=== PATIENT | male | born 1945 | race Caucasian/White ===

== ENCOUNTER 2024-11-05 14:23 | Observation (INO) | payer MEDICARE, SELFPAY ==
[2024-11-05 14:12] VITALS: BMI 28.6
[2024-11-05 14:14] VITALS: BP 180/133; PULSE 73; RESP 18; TEMP 36.4; O2SAT 99
--- NOTE | 2024-11-05 14:15 | NURSING ---
While completing my routine admission questions, pt does admit to having occassional thoughts of harming himself. Has admitted so to his as well, who is at bedside. States that he would use a gun and made a motion toward his head with his hand. He does not feel like he wants to live when his health is so poor. He is not currently having any self harm thoughts, and denies any attempts in the past. Social Work notified and suicide precautions in place.
--- NOTE | 2024-11-05 14:28 | PCM.HP.STD ---
HPI - General General Date of Admission: 11/05/24 Date of Service: 11/05/24 Chief Complaint: Chest pain HPI Narrative JUAN LIEBERMAN, is a 79 M who presents with chest pain. This is a 71-year-old male who presents with chest pain. Symptoms began this morning. It was a left-sided and radiated to and he did have chest x-ray is normal and a CTA of his chest that was also negative. His back. Associated with diaphoresis. Was concerning enough that patient was brought to an outside hospital with Yazmin Novak while he was there, he underwent a workup that noted that his sodium was low for evaluation. CTA of the chest was negative the contacted [facility] for evaluation.. PFSH Home Medications ?Medication ?Instructions ?Recorded ?Last Taken ?Type albuterol sulfate 90 mcg/actuation 2 puff inhalation Q4H PRN PRN 11/05/24 11/04/24 History aerosol inhaler wheezing doxazosin 4 mg tablet 4 mg PO DAILY 11/05/24 11/04/24 History dupilumab 300 mg/2 mL subcutaneous 300 mg subcut .Q2Week Skin 11/05/24 Unknown History pen injector (Dupixent) dutasteride 0.5 mg capsule 0.5 mg PO DAILY 11/05/24 11/04/24 History furosemide 20 mg tablet 20 mg PO DAILY 11/05/24 10/29/24 History levothyroxine 100 mcg capsule 100 mcg PO DAILY 11/05/24 Unknown History omeprazole 40 mg capsule,delayed 40 mg PO DAILY 11/05/24 11/04/24 History release Allergy/AdvReac Type Severity Reaction Status Date / Time prednisone AdvReac PT UNSURE Verified 11/05/24 14:12 OF REACTION Family History (Updated 11/05/24 @ 14:[address] Christopher Xie DO) Mother Cancer Other Heart disease Social History (Updated 11/05/24 @ 14:[address] Christopher Xie DO) Smoking Status: Never smoker alcohol intake: current details: Drinks 4 drinks a day most days. ROS ROS Narrative reports that the patient has been forgetful. Did have some bruising on his chest from the lead removal nonbillable rounding as patient was admitted after midnight. The EKG outside hospital some lower extremity edema. Appetite has been fair but that is chronic. Eats only breakfast usually but occasionally something at night if this is something that his makes that he likes. No weight change. All review of systems were negative except as mentioned above in the history of present illness and the other review of systems. Vital Signs Vital Signs Vital Signs: 11/05/24 14:14 Temperature 36.4 C L Temperature Source Oral Pulse Rate 73 Respiratory Rate 18 Blood Pressure 180/133 H Blood Pressure Mean 148 Blood Pressure Source Monitor Blood Pressure Position Sitting Blood Pressure Location Left Arm Pulse Ox 99 Oxygen Delivery Method Room Air Physical Exam Const alert and no apparent distress Constitutional Narrative: Hard of hearing HEENT normocephalic and head/scalp atraumatic Resp normal respiratory effort, no retractions, no use of accessory muscles and clear to auscultation bilaterally Cardio regular rate, regular rhythm, S1 normal heart sound and S2 normal heart sound GI normal to inspection, nondistended, normoactive bowel sounds, soft to palpation and non-tender Extremity normal to inspection and no clubbing, cyanosis or edema Skin Skin Narrative: Ecchymosis on his chest. Results EKG Initial EKG: Attestation: I personally reviewed and interpreted this EKG as follows: Prior EKG tracings: available for review EKG Rhythm Intrepretation: Sinus Rhythm Assessment & Plan Assessment/Plan (1) Chest pain: PLAN: Atypical. Reproducible. Suspect costochondritis with patient does have risk factors bigger with his family history for coronary artery disease. Will cycle troponins which I was told at the outside hospital were negative. As well as get a stress test. Patient did receive aspirin at the outside hospital and will continue. PLAN: Plan Forgetfulness: Per his . Would be concerned about patient having mild cognitive impairment versus dementia. Recommend geriatric evaluation as outpatient. VTE prophylaxis: Low risk. Not indicated at this time. Charges/Coding Visit Charges Inpatient E&M: 29405 Init Hosp L2
[2024-11-05 15:12] LABS: Hematocrit 34.7 % (40-54); Hemoglobin 11.8 g/dL (13.0-16.5); Mean Corpuscular Hgb 31.8 pg (27.0-32.0); Mean Corpuscular Volume 93.5 fL (80-94); Mean Platelet Vol. 9.3 fl (6.2-12.0); Platelet Count 224 K/mm3 (150-450); RBC Distribution Width CV 13.3 % (11.6-14.6); RBC Distribution Width SD 45.3 fl (35.1-43.9); Red Blood Count 3.71 M/mm3 (4.6-6.2); White Blood Count 7.3 K/mm3 (4.4-11.0)
[2024-11-05 15:47] LABS: Anion Gap 12 (5-15); BUN 18 mg/dL (4-19); BUN/Creat Ratio 8.1 RATIO (10-20); Calcium,Total 8.9 mg/dL (7.6-11.0); Carbon Dioxide 19.9 mmol/L (21.0-32.0); Chloride 93 mmol/L (98-108); Creatinine, Serum 2.16 mg/dL (0.70-1.20); EST Glomerular Filtration Rate 31 (>60); Estimated Creatinine Clearance 31.91 ml/min (50-250); Glucose 108 mg/dL (70-99); Potassium 4.2 mmol/L (3.3-5.1); Sodium Level 124 mmol/L (133-145)
[2024-11-05 16:46] LABS: Troponin T High Sensitivity 95 ng/L (<=22)
--- NOTE | 2024-11-05 17:23 | EKG12_ITS ---
Test Reason : pre CI Blood Pressure : */* mmHG Vent. Rate : 87 BPM Atrial Rate : 87 BPM P-R Int : 196 ms QRS Dur : 96 ms QT Int : 370 ms P-R-T Axes : 49 8 -8 degrees QTcB Int : 445 ms Normal sinus rhythm Possible Inferior infarct , age undetermined ST & T wave abnormality, consider anterolateral ischemia Abnormal ECG When compared with ECG of 05-Nov-2024 15:28, MANUAL COMPARISON REQUIRED DATA IS UNCONFIRMED Confirmed by SHIRA CATHERINE, BENJAMIN ([id number]), script editor STEFANY DOAN ([id number]) on 11/06/2024 10:56:08 AM Referred By: Christopher Xie Confirmed By: BENJAMIN SILVA MD
[2024-11-05 17:27] LABS: Osmolality, Serum 274 mOsm/KG (280-301)
[2024-11-05 18:38] LABS: Troponin T High Sens 2 HR 97 ng/L (<=22)
[2024-11-05] MEDS: 0.9% Normal Saline (1000mL) 1,000 ML 150 ML IV (18:38)
--- NOTE | 2024-11-05 18:41 | CASEMGMT ---
Social Work SW was consulted to assess patient for suicide risk due to comments made to nurse. Patient made comments to nurse that he did have occasional thoughts of harming self and that he did not want to live with his health being poor. Patient then made a motion with his hand of shooting self in head. SW entered room and introduced self to patient and explained reason for visit. Patient rolled his eyes and stated he did not want to hurt himself, that he sometimes just said things when he was upset. Patient stated that he is frustrated with his current health, that he is upset that he is not able to do the things he used to be able to do, and wants to be able to leave his house more. Patient was future focused, stating that he planned to improve his health so he and his can start going out to eat and visiting friends. Patient denies suicidal intent or plan, denies any past suicide attempts or any attempts at self harm. Patient did state that his mother committed suicide many years ago but that is did not affect him as they were not close. Patient was offered counseling services that he declined, stating Im not going to go to a counselor, I wouldn't be talking to you if I didn't have to Patients was contacted who stated she believed patient was just upset, that he will say things when he is in a bad mood and not mean them. also confirmed that they did not own any firearms. Physician was notified of assessment outcome. Charge nurse notified of assessment outcome and discussion with physician. [facility] SUICIDAL IDEATION Ask questions 1 and 2. If both are negative, proceed to ?Suicidal Behavior? section. If the answer question 2 is yes, ask questions 3, 4, 5.? If the answer to question 1 and/or 2 is ?yes?, complete ?Intensity of Ideation? section below. 1. Wish to be ? Subject endorses thoughts about a wish to be or not alive anymore or wish to fall asleep and not wake up. Have you wished you were or wished you could go to sleep and not wake up? Lifetime: Time He/She [place] Most Suicidal: ?Yes Past 1 month:No Please Describe if yes: ? Patient states he has had thoughts that he would be better off than with major health issues. 2. Non-Specific Active Suicidal Thoughts General, non-specific thoughts of wanting to end one?s life/commit suicide (e.g., ?I?ve thought about killing myself?) without thoughts of ways to kills oneself/associated methods, intent, or plan during the assessment period.? Have you actually had any thoughts of killing yourself? Lifetime: Time He/She [place] Most Suicidal: ?No Past 1 month: No Please Describe if yes: 3. Active Suicidal Ideation with Any Methods (Not Plan) without Intent to Act Subject endorses thoughts of suicide and has thought of at least one method during the assessment period.? This is different than a specific plan with time, place, or method details worked out (e.g., thought of method to kills self but not a specific plan).? Includes person who would say ?I thought about thanking an overdose, but I never made a specific plan as to when, where or how. I would actually do it, and I would never go through with it.? Have you been thinking about how you might do this? Lifetime: Time He/She [place] Most Suicidal: ?No Past 1 month:? No Please Describe if yes: 4. Active Suicidal Ideation with Some Intent to Act, without Specific Plan Active suicidal thoughts of kills oneself fand subject reports having some intent to act on such thoughts, as opposed to ?I have the thoughts but I definitely will not do anything about them.? Have you had these thoughts and had some intention of acting on them? Lifetime: Time He/She [place] Most Suicidal: No Past 1 month: No Please Describe if yes: 5. Active Suicidal Ideation with Specific Plan and Intent Thoughts of kills oneself with details of plan fully or partially worked out and subject has some intent to care it out. Have you started to work out or worked out the details of how to kill yourself? Do you intend to carry out this plan? Lifetime: Time He/She [place] Most Suicidal: No Past 1 month: ???No Please Describe if yes: INTENSITY OF IDEATION The following feature should be rated with respect to the most sever type of ideation (i.e., 1-5 from above, with 1 being the least severe and 5 being the most severe). Ask about time he/she/they were feeling the most suicidal.? Lifetime - Most Severe Ideation: Type # (1-5): 0 Description: Recent - Most Severe Ideation: Type # (1-5): 0 Description: Frequency How many times have you had these thoughts? Lifetime: (1) Less than once a week??? (2) Once a week?? (3)? 2-5 times in week??? (4) Daily or almost daily??? (5) Many times each day Recent, Past 1 month:? (1) Less than once a week??? (2) Once a week?? (3)? 2-5 times in week??? (4) Daily or almost daily??? (5) Many times each day Duration When you have the thoughts, how long do they last? Lifetime: (1) Fleeting - few seconds or minutes? (2) Less than 1 hour/some of the time? (3) 1-4 hours/a lot of time? 4) 4-8 hours/most of day? (5) More than 8 hours/persistent or continuous Recent, Past 1 month:? (1) Fleeting - few seconds or minutes? (2) Less than 1 hour/some of the time? (3) 1-4 hours/a lot of time? 4) 4-8 hours/most of day? (5) More than 8 hours/persistent or continuous Controllability Could/can you stop thinking about killing yourself or wanting to if you want to? Lifetime:? (1) Easily able to control thoughts?? (2) Can control thoughts with little difficulty??? (3) Can control thoughts with some difficulty??? 4) Can control thoughts with a lot of difficulty? (5) Unable to control thoughts?? (0) Does not attempt to control thoughts Recent, Past 1 month: (1) Easily able to control thoughts?? (2) Can control thoughts with little difficulty??? (3) Can control thoughts with some difficulty??? 4) Can control thoughts with a lot of difficulty? (5) Unable to control thoughts?? (0) Does not attempt to control thoughts Deterrents Are there things - anyone or anything (e.g., family, yazdanism, pain of ) - that stopped you from wanting to or acting on thoughts of committing suicide? Lifetime:? (1) Deterrents definitely stopped you from attempting suicide? (2) Deterrents probably stopped you?? (3) Uncertain that deterrents stopped you? (4) Deterrents most likely did not stop you? (5) Deterrents definitely did not stop you?? 0) Does not apply??? Recent:??? (1) Deterrents definitely stopped you from attempting suicide? (2) Deterrents probably stopped you?? (3) Uncertain that deterrents stopped you? (4) Deterrents most likely did not stop you? (5) Deterrents definitely did not stop you?? 0) Does not apply??? Reasons for Ideation What sort of reasons did you have for thinking about wanting to or killing yourself? Was it to end the pain or stop the way you were feeling (in other words you couldn?t go on living with this pain or how you were feeling) or was it to get attention, revenge or a reaction from others? Or both? Lifetime: (1) Completely to get attention, revenge or a reaction from?? (2) Mostly to get attention, revenge or a reaction from others? (3) Equally to get attention, revenge or a reaction from others? and to end/stop the pain?? ( 4) Mostly to end or stop the pain (you couldn?t go on living with the pain or how you were feeling)??? (5) Completely to end or stop the pain (you couldn?t go on living with the pain or? how you were feeling)??? (0)? Does not apply? Recent: (1) Completely to get attention, revenge or a reaction from?? (2) Mostly to get attention, revenge or a reaction from others? (3) Equally to get attention, revenge or a reaction from others? and to end/stop the pain??? (4) Mostly to end or stop the pain (you couldn?t go on living with the pain or how you were feeling)?? (5) Completely to end or stop the pain (you couldn?t go on living with the pain or? how you were feeling)?? (0)? Does not apply? SUICIDAL BEHAVIOR Actual Attempt: A potentially self-injurious act committed with at least some wish to , as a result of act.? Behavior was in part thought of as method to kill oneself.? Intent does not have to be 100%.? If there is any intent/desire to associated with the act, then it can be considered an actual suicide attempt.? There does not have to be any injury of harm, just the potential for injury or harm.? If person pulls trigger while gun is in mouth, but gun is broken so no injury results, this is considered an attempt.? Inferring intent:? Even if an individual denies intent/wish to , it may be inferred clinically from the behavior or circumstances.? For example, a highly lethal act that is clearly not an accident so no other intent but suicide can be inferred (e.g. gunshot to head, jumping from window of a high floor/story).? Also, if someone denies intent to , but they thought that what they did could be lethal, intent may be inferred.? Have you made a suicide attempt? Have you done anything to harm yourself? Have you done anything dangerous where you could have ? What did you do? Did you as a way to end your life? Did you want to (even a little) when you ? Were you trying to end your life when you ? Or did you think it was possible you could have from ? Or did you do it purely for other reasons/without ANY intention of killing yourself like to relieve stress, feel better, get sympathy, or get something else to happen)? (Self -Injurious Behavior without suicidal intent) Lifetime: No Past 3 months: No If yes, describe: Total # of Attempts in His/Her Lifetime: Total # of attempts in Past 3 months: Has person engaged in Non-Suicidal Self-Injurious Behavior? Lifetime: no Past 3 months: no Interrupted Attempt: When the person is interrupted (by an outside circumstance) from starting the potentially self-injurious act (if not for that, actual attempt would have occurred).? Overdose: Person has pills in hand but is stopped from ingesting. Once they ingest any pills, this becomes an attempt rather than an interrupted attempt. Shooting: Person has gun pointed toward self, gun is taken away by someone else, or is somehow prevented from pulling trigger. Once they pull the trigger, even if the gun fails to fire, it is an attempt. Jumping: Person is poised to jump, is grabbed and taken down from ledge.? Hanging: Person has noose around neck but has not yet started to hang self -is stopped from doing so.? Has there been a time when you started to do something to end your life but someone or something stopped you before you did anything? Lifetime: No Past 3 months: No If yes, describe: ? Total # of interrupted attempts in His/Her Lifetime: Total # of interrupted attempts in Past 3 months: Aborted or Self-Interrupted Attempt:? When person begins to take steps toward making a suicide attempt, but stops themselves before they have actually engaged in any self-destructive behavior. Examples are like interrupted attempts, except that the individual stops him/herself, instead of being stopped by something else. Has there been a time when you started to do something to try to end your life, but you stopped yourself before you did anything? Lifetime: No Past 3 months: No If yes, describe: Total # of aborted or self-interrupted attempts in His/Her Lifetime: Total # of aborted or self-interrupted attempts in Past 3 months: Preparatory Acts or Behavior:? Acts or preparation towards imminently making a suicide attempt. This can include anything beyond a verbalization or thought, such as assembling a specific method (e.g., buying pills, purchasing a gun) or preparing for one?s by suicide (e.g., giving things away, writing a suicide note). Have you taken any steps towards making a suicide attempt or preparing to kill yourself (such as collecting pills, getting a gun, giving valuables away or writing a suicide note)? Lifetime: No Past 3 months: No If yes, describe: ? Total # of preparatory acts in His/Her Lifetime: Total # of preparatory acts in Past 3 months: Lethality/Medical Damage:??? 0. No physical damage or very minor physical damage (e.g., surface scratches). 1. Minor physical damage (e.g., lethargic speech; first-degree kauffman; mild bleeding; sprains). 2. Moderate physical damage; medical attention needed (e.g., conscious but sleepy, somewhat responsive; second-degree kauffman; bleeding of major vessel). 3. Moderately severe physical damage; medical hospitalization and likely intensive care required (e.g., comatose with reflexes intact; third-degree kauffman less than 20% of body; extensive blood loss but can recover; major fractures). 4. Severe physical damage; medical hospitalization with intensive care required (e.g., comatose without reflexes; third-degree kauffman over 20% of body; extensive blood loss with unstable vital signs; major damage to a vital area). 5. Most Recent attempt Date: Code: Most Lethal Attempt Date: Code: Initial/First Attempt Date: Code: Potential Lethality: Only Answer if Actual Lethality=0 Likely lethality of actual attempt if no medical damage (the following examples, while having no actual medical damage, had potential for very serious lethality: put gun in mouth and pulled the trigger but gun fails to fire so no medical damage; laying on train tracks with oncoming train but pulled away before run over). 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
--- NOTE | 2024-11-05 18:52 | NURSING ---
Suicide sitter removed per Dr. Xie orders.
[2024-11-05 21:15] LABS: Troponin T High Sens 4 HR 92 ng/L (<=22)
[2024-11-05 21:50] VITALS: BP 191/119; PULSE 84; RESP 17; TEMP 36.7; O2SAT 99
[2024-11-05 22:07] LABS: Bacteria 0 SEEN /hpf (None Seen); Mucous, Urine 0 SEEN /hpf (<or=2+); Red Blood Cells-Urine 0 SEEN /hpf (0-5)
[2024-11-05 22:20] LABS: Color, Urine Straw (Yellow); Glucose, Dipstick Normal (Normal); Ketone-Dipstick Negative (Negative); Leukocyte Esterase-Dipstick Negative /ul (Negative); Nitrite-Dipstick Negative (Negative); Occult Blood-Urine Negative /ul (Negative); Protein-Dipstick 100 mg/dl (Negative); Urine Bilirubin Dipstick Negative (Negative); Urine Clarity Clear (Clear); Urine Urobilinogen Normal (Normal)
[2024-11-05 22:26] VITALS: BP 191/119; PULSE 84
[2024-11-05] MEDS: hydrALAZINE 20 MG/ML Vial 10 MG IV (22:26)
[2024-11-05] MEDS: 0.9% Saline Lock 10 ML Syringe IV (22:26)
[2024-11-05 22:30] LABS: Squamous Epithelial Cells - UA 0-5 SEEN /hpf (0-5); White Blood Cells 0-5 SEEN /hpf (0-5)
[2024-11-05 22:44] LABS: Urine Sodium 32 mmol/L (Not Establ.)
--- OUTSIDE RECORDS SUMMARY | 2024-11-05 22:50 | XMS RPT_ITS | CCD ---
Author Organization [facility] Care Team Providers Care Rustic Fence Builder Name Role Phone Jrared Kim Unavailable JIM Banks Unavailable Unavailable JIM MICHELE MD Primary Care Physician JIM MICHELE MD Primary Care Unavailable JIM MICHELE MD Attending Unavailable JIM MICHELE MD Attending Unavailable JIM MICHELE MD Primary Care Unavailable JIM MICHELE MD Primary Care Unavailable JIM MICHELE MD Attending Unavailable JIM MICHELE MD Primary Care Unavailable CARINE FIERRO DO Attending Unavailable JIM MICHELE MD Primary Care Unavailable JIM MICHELE MD Attending Unavailable JIM MICHELE MD Primary Care Unavailable JIM MICHELE MD Attending Unavailable JIM MICHELE MD Primary Care Unavailable JIM MICHELE MD Attending Unavailable JIM MICHELE MD Attending Unavailable JIM MICHELE MD Primary Care Unavailable JIM MICHELE MD Attending Unavailable JIM MICHELE MD Primary Care Unavailable Allergies Allergy Classification Reported Allergen(s) Allergy Type Date of Onset Reaction(s) Facility (20 sources) benazepril; Translations: [benazepril] Drug Allergy Cough [facility] (20 sources) predniSONE; Translations: [prednisone] Drug Allergy Unknown [facility] Medications Current Medications Medication Drug Class(es) Dates Sig (Normalized) Sig (Original) acetaminophen 325 mg / oxyCODONE hydrochloride 5 mg oral tablet (1 source) Opioid Agonist Start: 02-03-2023 End: 02-06-2023 take 1 tablet by mouth every six hours as needed for pain Percocet 5 mg-325 mg oral tablet Dose = 1 tab(s), Oral, q6h, PRN for pain, X 3 day(s), # 8 tab(s), 0 Refill(s), Cellulitis, 91 Start Date: 02/03/23 Stop Date: 02/06/23 Status: Ordered [id number] 200 actuat albuterol 0.09 mg/actuat metered dose inhaler (6 sources) beta2-Adrenergic Agonist Start: 02-08-2024 take 2 puff(s) by inhalation every four hours as needed for wheezing ProAir HFA MDI (90 mcg/inh) inhalation aerosol 2 puff(s), Inhalation, q4h, PRN as needed for wheezing, # 8.5 gram(s), 4 Refill(s), Pharmacy: [facility]/pharmacy #[id number], Benign essential hypertension Diabetes mellitus, 176.5, cm, 12/07/23 13:54:00 EDT, Height, kg, 12/07/23 13:54:00 EDT, Dosing Weight Start Date: 02/08/24 Status: Ordered Quantity: 8.5 Unit: g Repeat number: 5 Indications: Type 2 diabetes mellitus without complications; Essential (primary) hypertension; Start: 03-31-2023 take 2 puff(s) by in halation every four hours as needed for wheezing ProAir HFA MDI (90 mcg/inh) inhalation aerosol 2 puff(s), Inhalation, q4h, PRN as needed for wheezing, # 8.5 gram(s), 4 Refill(s), Pharmacy: [facility] #[id number], Benign essential hypertension Diabetes mellitus, 176.5, cm, 03/31/23 8:33:00 EST, Height, kg, 03/31/23 8:21:00 EST, Dosing Weight Start Date: 03/31/23 Status: Ordered albuterol MDI (90 mcg/inh) CFC free inhalation aerosol (19 sources) Start: 01-25-2023 take 2 puff(s) by inhalation every four hours as needed for wheezing albuterol MDI (90 mcg/inh) CFC free inhalation aerosol 2 puff(s), Inhalation, q4h, PRN as needed for wheezing, # 18 gram(s), 0 Refill(s), Pharmacy: [facility] #[id number], Low back pain, 176.5, cm, 01/25/23 10:06:00 EDT, Height, kg, 01/25/23 10:06:00 EDT, Dosing Weight Start Date: 01/25/23 Status: Ordered Quantity: 18.0 Unit: g Repeat number: 1 Indications: Low back pain, unspecified; Start: 01-25-2023 take 2 puff(s) by in halation every four hours as needed for wheezing albuterol MDI (90 mcg/inh) CFC free inhalation aerosol 2 puff(s), Inhalation, q4h, PRN as needed for wheezing, # 18 gram(s), 0 Refill(s), Pharmacy: [facility] #[id number], Low back pain, 176.5, cm, 01/25/23 10:06:00 EDT, Height, kg, 01/25/23 10:06:00 EDT, Dosing Weight Start Date: 01/25/23 Status: Ordered Start: 11-30-2022 End: 01-29-2023 take 2 puff(s) by inhalation every four hours as needed for wheezing albuterol MDI (90 mcg/inh) CFC free inhalation aerosol 2 puff(s), Inhalation, q4h, PRN as needed for wheezing, # 1 EA, 1 Refill(s), Pharmacy: [facility] #[id number], Exercise-induced asthma, 176.5, cm, 10/15/22 12:50:00 EDT, Height, kg, 10/15/22 12:50:00 EDT, Dosing Weight Start Date: 11/30/22 Stop Date: 01/29/23 Status: Ordered Start: 08-12-2022 End: 10-11-2022 take 2 puff(s) by inhalation every four hours as needed for wheezing albuterol MDI (90 mcg/inh) CFC free inhalation aerosol 2 puff(s), Inhalation, q4h, PRN as needed for wheezing, # 1 EA, 1 Refill(s), Pharmacy: [facility] #[id number], Exercise-induced asthma, 176.5, cm, 07/28/22 15:52:00 EDT, Height, kg, 07/28/22 15:52:00 EDT, Dosing Weight Start Date: 08/12/22 Stop Date: 10/11/22 Status: Ordered Start: 2022 End: 01-18-2023 take 2 puff(s) by inhalation every four hours as needed for wheezing albuterol MDI (90 mcg/inh) CFC free inhalation aerosol 2 puff(s), Inhalation, q4h, PRN as needed for wheezing, # 1 EA, 0 Refill(s), [facility]acy: [facility] #[id number], Exercise-induced asthma, 176.5, cm, 03/31/22 10:05:00 EST, Height, kg, 03/31/22 10:05:00 EST, Dosing Weight Start Date: 05/03/22 Stop Date: 06/02/22 Status: Ordered Start: 12-24-2021 End: 01-23-2022 take 2 puff(s) by inhalation every four hours as needed for wheezing albuterol MDI (90 mcg/inh) CFC free inhalation aerosol 2 puff(s), Inhalation, q4h, PRN as needed for wheezing, # 1 EA, 0 Refill(s), Pharmacy: [facility] #[id number], Exercise-induced asthma, 176.5, cm, 12/24/21 9:21:00 EDT, Height, kg, 12/24/21 9:21:00 EDT, Dosing Weight Start Date: 12/24/21 Stop Date: 01/23/22 Status: Ordered Start: 11-24-2021 End: 12-24-2021 take 2 puff(s) by inhalation every four hours as needed for wheezing albuterol MDI (90 mcg/inh) CFC free inhalation aerosol 2 puff(s), Inhalation, q4h, PRN as needed for wheezing, # 1 EA, 0 Refill(s), Pharmacy: [facility] Exercise-induced asthma, 177.4, cm, 06/25/21 8:19:00 EST, Height, kg, 06/25/21 8:19:00 EST, Dosing Weight Start Date: 11/24/21 Stop Date: 12/24/21 Status: Ordered Start: 09-08-2021 End: 10-08-2021 take 2 puff(s) by inhalation every four hours as needed for wheezing albuterol MDI (90 mcg/inh) CFC free inhalation aerosol 2 puff(s), Inhalation, q4h, PRN as needed for wheezing, # 1 EA, 0 Refill(s), Pharmacy: [facility]-[address] Exercise-induced asthma, 177.4, cm, 06/25/21 8:19:00 EST, Height, kg, 06/25/21 8:19:00 EST, Dosing Weight Start Date: 09/08/21 Stop Date: 10/08/21 Status: Ordered Start: 05-12-2021 End: 06-11-2021 take 2 puff(s) by inhalation every four hours as needed for wheezing albuterol MDI (90 mcg/inh) CFC free inhalation aerosol 2 puff(s), Inhalation, q4h, PRN as needed for wheezing, # 1 EA, 0 Refill(s), [facility] Exercise-induced asthma, 177.4, cm, 03/26/21 9:34:00 EST, Height, kg, 03/26/21 9:34:00 EST, Dosing Weight Start Date: 05/12/21 Stop Date: 06/11/21 Status: Ordered Start: 01-13-2021 End: 02-12-2021 take 2 puff(s) by inhalation every four hours as needed for wheezing albuterol MDI (90 mcg/inh) CFC free inhalation aerosol 2 puff(s), Inhalation, q4h, PRN as needed for wheezing, # 1 EA, 0 Refill(s), [facility] [address] Exercise-induced asthma, 177, cm, 09/29/20 8:16:00 EDT, Height, kg, 09/29/20 8:16:00 EDT, Dosing Weight Start Date: 01/13/21 Stop Date: 02/12/21 Status: Ordered amLODIPine 5 mg oral tablet (16 sources) Dihydropyridine Calcium Channel Sherrill Start: 06-24-2023 amLODIPine 5 mg oral tablet Dose : 5 mg = 1 tab(s), Oral, qDay, # 90 tab(s), 3 Refill(s), Pharmacy: [facility] #[id number], 176.5, cm, 06/24/23 10:11:00 EST, Height, kg, 06/24/23 10:11:00 EST, Dosing Weight Start Date: 06/24/23 Status: Ordered Start: 11-30-2022 amLODIPine 5 m g oral tablet Dose : 5 mg = 1 tab(s), Oral, qDay, # 90 tab(s), 3 Refill(s), Pharmacy: [facility] #[id number], 176.5, cm, 10/15/22 12:50:00 EDT, Height, kg, 10/15/22 12:50:00 EDT, Dosing Weight Start Date: 11/30/22 Status: Ordered Start: 07-15-2022 amLODIPine 5 m g oral tablet Dose : 5 mg = 1 tab(s), Oral, qDay, # 90 tab(s), 3 Refill(s), Pharmacy: [facility] #[id number], 176.5, cm, 07/15/22 10:18:00 EST, Height Start Date: 07/15/22 Status: Ordered Start: 10-22-2021 amLODIPine 10 mg oral tablet Dose : 10 mg = 1 tab(s), Oral, qDay, # 90 tab(s), 3 Refill(s), Pharmacy: [facility] 177.4, cm, 06/25/21 8:19:00 EST, Height, kg, 06/25/21 8:19:00 EST, Dosing Weight Start Date: 10/22/21 Status: Ordered Start: 11-03-2020 amLODIPine 10 mg oral tablet Dose : 10 mg = 1 tab(s), Oral, qDay, # 90 tab(s), 3 Refill(s), Pharmacy: [facility] 177, cm, 09/29/20 8:16:00 EDT, Height, kg, 09/29/20 8:16:00 EDT, Dosing Weight Start Date: 11/03/20 Status: Ordered cephalexin 500 mg oral capsule (1 source) Cephalosporin Antibacterial Start: 02-03-2023 End: 02-10-2023 cephalexin 500 mg oral capsule Dose : 500 mg = 1 cap(s), Oral, QID, X 7 day(s), # 28 cap(s), 0 Refill(s), 02/10/23 10:39:00 AM EDT, 91 Start Date: 02/03/23 Stop Date: 02/10/23 Status: Ordered diazePAM 2 mg oral tablet (1 source) Benzodiazepine Start: 07-27-2022 End: 08-06-2022 diazePAM 2 mg oral tablet Dose : 2 mg = 1 tab(s), Oral, TID, X 10 day(s), # 30 tab(s), 0 Refill(s), 08/06/22 12:09:00 EDT, Pharmacy: [facility] #[id number], Itching, 176.5, cm, 07/22/22 13:49:00 EST, Height, 101.1 Start Date: 07/27/22 Stop Date: 08/06/22 Status: Ordered doxazosin 4 mg oral tablet (20 sources) alpha-Adrenergic Sherrill Start: 05-18-2024 doxaz osin 4 mg oral tablet Dose : 4 mg = 1 tab(s), Oral, qDay, # 90 tab(s), 3 Refill(s), Pharmacy: [facility]/pharmacy #[id number], 176.5, cm, 04/04/24 8:54:00 EST, Height, kg, 04/04/24 8:54:00 EST, Dosing Weight Start Date: 05/18/24 Status: Ordered Quantity: 90.0 Unit: tab(s) Repeat number: 4 Start: 05-24-2023 doxazosin 4 mg oral tablet Dose : 4 mg = 1 tab(s), Oral, qDay, # 90 tab(s), 3 Refill(s), Pharmacy: [facility] #[id number], 176.5, cm, 03/31/23 8:33:00 EST, Height, kg, 03/31/23 8:21:00 EST, Dosing Weight Start Date: 05/24/23 Status: Ordered Start: 11-30-2022 doxazosin 4 mg oral tablet Dose : 4 mg = 1 tab(s), Oral, qDay, # 90 tab(s), 1 Refill(s), Pharmacy: [facility] #[id number], 176.5, cm, 10/15/22 12:50:00 EDT, Height Start Date: 11/30/22 Status: Ordered Start: 11-03-2020 End: 10-17-2022 doxazosin 4 mg oral tablet D ose : 4 mg = 1 tab(s), Oral, qDay, X 90 day(s), # 90 tab(s), 3 Refill(s), 10/17/22 14:03:00 EDT, Pharmacy: [facility], 177.4, cm, 06/25/21 8:19:00 EST, Height, kg, 06/25/21 8:19:00 EST, Dosing Weight Start Date: 10/22/21 Stop Date: 10/17/22 Status: Ordered 2 ml dupilumab 150 mg/ml auto-injector (7 sources) Interleukin-4 Receptor alpha Antagonist Start: 10-14-2023 inject 1 dose by subcutaneous injection every other week Dupixent Pre-filled Pen 300 mg/2 mL subcutaneous solution Dose : 300 mg =, Subcutaneous, q2wk, rotate injection sites, # 4 mL, 0 Refill(s) Start Date: 10/14/23 Status: Ordered Quantity: 4.0 Unit: mL Repeat number: 1 Start: 01-25-2023 inject 1 dose by sub cutaneous injection every other week Dupixent Pre-filled Pen 300 mg/2 mL subcutaneous solution Dose : 300 mg =, Subcutaneous, q2wk, rotate injection sites, # 4 mL, 0 Refill(s) Start Date: 01/25/23 Status: Ordered dutasteride 0.5 mg oral capsule (17 sources) 5-alpha Reductase Inhibitor Start: 10-02-2024 dutasteride 0.5 mg o ral capsule Dose : 0.5 mg = 1 cap(s), Oral, qDay, # 30 cap(s), 0 Refill(s), Pharmacy: [facility]/pharmacy #[id number], 176, cm, 10/02/24 9:23:00 EDT, Height, kg, 10/02/24 9:23:00 EDT, Dosing Weight Start Date: 10/02/24 Status: Ordered Quantity: 30.0 Unit: cap(s) Repeat number: 1 Start: 06-25-2021 dutasteride 0. 5 mg oral capsule Dose : 0.5 mg = 1 cap(s), Oral, qDay, 0 Refill(s) Start Date: 06/25/21 Status: Ordered Repeat number: 1 Flonase 50 mcg/inh nasal spray (3 sources) Start: 04-10-2019 take 1 dose nasal route once daily in the morning Flonase 50 mcg/inh nasal spray Dose = 1 spray(s), Nostril, each, qAM, 0 Refill(s) Start Date: 04/10/19 Status: Ordered fluticasone propionate 0.05 mg/actuat metered dose nasal spray (17 sources) Corticosteroid Start: 04-10-2019 take 1 dose nasal route once daily as needed Flonase 50 mcg/inh nasal spray Dose = 1 spray(s), Nostril, each, qDay, PRN Allergy symptoms, 0 Refill(s) Start Date: 04/10/19 Status: Ordered Repeat number: 1 furosemide 20 mg oral tablet (6 sources) Loop Diuretic Start: 08-21-2024 furosemide 20 mg oral tablet Dose : 20 mg = 1 tab(s), Oral, qDay, # 30 tab(s), 0 Refill(s), Pharmacy: [facility]/pharmacy #[id number], Allergic conjunctivitis Seasonal allergies, 176, cm, 08/21/24 7:25:00 EDT, Height, kg, 08/21/24 7:25:00 EDT, Dosing Weight Start Date: 08/21/24 Status: Ordered Quantity: 30.0 Unit: tab(s) Repeat number: 1 Indications: Other seasonal allergic rhinitis; Acute atopic conjunctivitis, unspecified eye; Start: 06-24-2023 furosemide 20 mg oral tablet Dose : 20 mg = 1 tab(s), Oral, qDay, # 30 tab(s), 0 Refill(s), Pharmacy: [facility] #[id number], Lower extremity edema Actinic keratosis, 176.5, cm, 06/24/23 10:11:00 EST, Height, kg, 06/24/23 10:11:00 EST, Dosing Weight Start Date: 06/24/23 Status: Ordered Start: 07-15-2022 furosemide 20 mg oral tablet Dose : 20 mg = 1 tab(s), Oral, qDay, # 30 tab(s), 0 Refill(s), Pharmacy: [facility] #[id number], Lower extremity edema, 176.5, cm, 07/15/22 10:18:00 EST, Height Start Date: 07/15/22 Status: Ordered glipiZIDE 5 mg / metFORMIN hydrochloride 500 mg oral tablet (4 sources) Biguanide, Sulfonylurea Start: 07-21-2021 take 1 tablet by mouth twice daily glipizide-metformin 5 mg-500 mg oral tablet Dose = 1 tab(s), Oral, BID, # 180 tab(s), 0 Refill(s), [facility] [address] 177.4, cm, 06/25/21 8:19:00 EST, Height, kg, 06/25/21 8:19:00 EST, Dosing Weight Start Date: 07/21/21 Status: Ordered Start: 03-26-2021 take 1 tablet by dewayne twice daily glipizide-metformin 5 mg-500 mg oral tablet Dose = 1 tab(s), Oral, BID, # 180 tab(s), 0 Refill(s), [facility] [address] 177.4, cm, 03/26/21 9:34:00 EST, Height, kg, 03/26/21 9:34:00 EST, Dosing Weight Start Date: 03/26/21 Status: Ordered Start: 01-13-2021 take 1 tablet by [facility] twice daily glipizide-metformin 5 mg-500 mg oral tablet Dose = 1 tab(s), Oral, BID, # 180 tab(s), 0 Refill(s), [facility] [address] 177, cm, 09/29/20 8:16:00 EDT, Height, kg, 09/29/20 8:16:00 EDT, Dosing Weight Start Date: 01/13/21 Status: Ordered hydrOXYzine pamoate 25 mg oral capsule (1 source) Antihistamine Start: 07-15-2022 hydrOXYzine pa moate 25 mg oral capsule Dose : 25 mg = 1 cap(s), Oral, QID, PRN as needed for itching, # 40 cap(s), 0 Refill(s), Pharmacy: [facility] #[id number], Generalized pruritus, 176.5, cm, 07/15/22 10:18:00 EST, Height Start Date: 07/15/22 Status: Ordered ibuprofen 800 mg oral tablet (1 source) Nonsteroidal Anti-inflammatory Drug Start: 02-03-2023 End: 02-06-2023 ibuprofen 800 mg oral tablet Dose : 800 mg = 1 tab(s), Oral, TID, PRN as needed for pain, X 3 day(s), # 9 tab(s), 0 Refill(s), 02/06/23 10:40:00 AM EDT Start Date: 02/03/23 Stop Date: 02/06/23 Status: Ordered levothyroxine sodium 0.1 mg oral tablet (20 sources) l-Thyroxine Start: 10-02-2024 levothyroxine 100 mcg (0.1 mg) oral tablet Dose : 100 mcg = 1 tab(s), Oral, qDay, # 90 tab(s), 3 Refill(s), Pharmacy: [facility]/pharmacy #[id number], 176, cm, 10/02/24 9:23:00 EDT, Height, kg, 10/02/24 9:23:00 EDT, Dosing Weight Start Date: 10/02/24 Status: Ordered Quantity: 90.0 Unit: tab(s) Repeat number: 4 Start: 04-04-2024 levothyroxine 88 mcg (0.088 mg) oral tablet Dose : 88 mcg = 1 tab(s), Oral, qDay, # 90 tab(s), 3 Refill(s), Pharmacy: [facility]/pharmacy #[id number], 176.5, cm, 04/04/24 8:54:00 EST, Height, kg, 04/04/24 8:54:00 EST, Dosing Weight Start Date: 04/04/24 Status: Ordered Quantity: 90.0 Unit: tab(s) Repeat number: 4 Start: 12-07-2023 levothyroxine 75 mcg (0.075 mg) oral tablet Dose : 75 mcg = 1 tab(s), Oral, qDay, # 90 tab(s), 3 Refill(s), Pharmacy: [facility]/pharmacy #[id number], Right foot injury Benign essential hypertension, 176.5, cm, 12/07/23 13:54:00 EDT, Height, kg, 12/07/23 13:54:00 EDT, Dosing Weight Start Date: 12/07/23 Status: Ordered Start: 06-23-2023 levothyroxine 125 mcg (0.125 mg) oral tablet Dose : 125 mcg = 1 tab(s), Oral, qDay, # 90 tab(s), 1 Refill(s), Pharmacy: [facility] #[id number], 176.5, cm, 03/31/23 8:33:00 EST, Height, kg, 03/31/23 8:21:00 EST, Dosing Weight Start Date: 06/23/23 Status: Ordered Start: 11-30-2022 levothyroxine 125 mcg (0.125 mg) oral tablet Dose : 125 mcg = 1 tab(s), Oral, qDay, # 90 tab(s), 1 Refill(s), Pharmacy: [facility] #[id number], 176.5, cm, 10/15/22 12:50:00 EDT, Height, kg, 10/15/22 12:50:00 EDT, Dosing Weight Start Date: 11/30/22 Status: Ordered Start: 07-09-2022 levothyroxine 125 mcg (0.125 mg) oral tablet Dose : 125 mcg = 1 tab(s), Oral, qDay, # 90 tab(s), 1 Refill(s), Pharmacy: [facility] #[id number], 176.5, cm, 07/08/22 9:43:00 EST, Height Start Date: 07/09/22 Status: Ordered Start: 05-27-2022 levothyroxine 75 mcg (0.075 mg) oral tablet Dose : 75 mcg = 1 tab(s), Oral, qDay, # 30 tab(s), 2 Refill(s), Pharmacy: [facility] #[id number], 176.5, cm, 05/27/22 10:44:00 EST, Height Start Date: 05/27/22 Status: Ordered Start: 06-25-2021 levothyroxine 125 mcg (0.125 mg) oral tablet Dose : 125 mcg = 1 tab(s), Oral, qDay, # 90 tab(s), 3 Refill(s), Pharmacy: [facility] 177.4, cm, 06/25/21 8:19:00 EST, Height, kg, 06/25/21 8:19:00 EST, Dosing Weight Start Date: 06/25/21 Status: Ordered Start: 03-26-2021 End: 03-21-2022 levothyroxine 150 mcg (0.15 mg) oral tablet Dose : 150 mcg = 1 tab(s), Oral, qDay, # 90 tab(s), 3 Refill(s), Pharmacy: [facility] 177.4, cm, 03/26/21 9:34:00 EST, Height, kg, 03/26/21 9:34:00 EST, Dosing Weight Start Date: 03/26/21 Stop Date: 03/21/22 Status: Ordered Start: 11-03-2020 End: 10-29-2021 levothyroxine 175 mcg (0.175 mg) oral tablet Dose : 175 mcg = 1 tab(s), Oral, qDay, # 90 tab(s), 3 Refill(s), [facility]: [facility] 177, cm, 09/29/20 8:16:00 EDT, Height, kg, 09/29/20 8:16:00 EDT, Dosing Weight Start Date: 11/03/20 Stop Date: 10/29/21 Status: Ordered losartan potassium 100 mg oral tablet (16 sources) Angiotensin 2 Receptor Sherrill Start: 11-03-2020 End: 11-25-2023 losartan 100 mg oral tablet Dose : 100 mg = 1 tab(s), Oral, qDay, # 90 tab(s), 3 Refill(s), Pharmacy: [facility] #[id number], 176.5, cm, 10/15/22 12:50:00 EDT, Height, kg, 10/15/22 12:50:00 EDT, Dosing Weight Start Date: 11/30/22 Stop Date: 11/25/23 Status: Ordered metFORMIN hydrochloride 500 mg oral tablet (12 sources) Biguanide Start: 12-24-2021 End: 11-14-2025 metFORMIN 500 mg oral tablet (IR) Dose : 500 mg = 1 tab(s), Oral, BID, # 180 tab(s), 11 Refill(s), Pharmacy: [facility] #[id number], 176.5, cm, 10/15/22 12:50:00 EDT, Height, kg, 10/15/22 12:50:00 EDT, Dosing Weight Start Date: 11/30/22 Stop Date: 11/14/25 Status: Ordered Start: 12-09-2021 metFORMIN 500 mg oral tablet (IR) Dose : 500 mg = 1 tab(s), Oral, BID, # 60 tab(s), 0 Refill(s), Pharmacy: [facility] #[id number], 177.8, cm, 12/08/21 11:26:00 EDT, Height Start Date: 12/09/21 Status: Ordered naproxen 500 mg oral tablet (9 sources) Nonsteroidal Anti-inflammatory Drug Start: 05-11-2022 naproxen 500 mg o ral tablet Dose : 500 mg = 1 tab(s), Oral, BID, # 180 tab(s), 3 Refill(s), Pharmacy: [facility] #[id number], 176.5, cm, 03/31/22 10:05:00 EST, Height, kg, 03/31/22 10:05:00 EST, Dosing Weight Start Date: 05/11/22 Status: Ordered Start: 04-30-2021 naproxen 500 m g oral tablet Dose : 500 mg = 1 tab(s), Oral, BID, # 180 tab(s), 3 Refill(s), [facility]: [facility] 177.4, cm, 03/26/21 9:34:00 EST, Height, kg, 03/26/21 9:34:00 EST, Dosing Weight Start Date: 04/30/21 Status: Ordered Start: 05-13-2020 naproxen 500 m g oral tablet Dose : 500 mg = 1 tab(s), Oral, BID, # 180 tab(s), 3 Refill(s), Pharmacy: [facility] 177.8, cm, 04/08/20 8:01:00 EST, Height, kg, 04/08/20 8:01:00 EST, Dosing Weight Start Date: 05/13/20 Status: Ordered omeprazole 40 mg delayed release oral capsule (18 sources) Proton Pump Inhibitor Start: 06-21-2024 take 1 tablet by mouth once daily omeprazole 40 mg oral delayed release capsule 1 tab, Oral, qDay, # 90 cap(s), 3 Refill(s), Pharmacy: [facility]/pharmacy #[id number], 176.5, cm, 04/04/24 8:54:00 EST, Height, kg, 04/04/24 8:54:00 EST, Dosing Weight Start Date: 06/21/24 Status: Ordered Quantity: 90.0 Unit: cap(s) Repeat number: 4 Start: 03-28-2024 take 1 tablet by dewayne once daily omeprazole 40 mg oral delayed release capsule 1 tab, Oral, qDay, in lieu of PCP, # 90 tab(s), 0 Refill(s), Pharmacy: [facility]/pharmacy #[id number], 176.5, cm, 12/07/23 13:54:00 EDT, Height, kg, 12/07/23 13:54:00 EDT, Dosing Weight Start Date: 03/28/24 Status: Ordered Start: 09-22-2022 take 1 tablet by dewayne once daily omeprazole 40 mg oral delayed release capsule 1 tab, Oral, qDay, # 90 tab(s), 3 Refill(s), Pharmacy: [facility] #[id number], 176.5, cm, 07/28/22 15:52:00 EDT, Height Start Date: 09/22/22 Status: Ordered Start: 05-27-2022 omeprazole 40 mg oral delayed release capsule Dose : 40 mg = 1 cap(s), Oral, qDay, # 90 cap(s), 3 Refill(s), Pharmacy: [facility] #[id number], 176.5, cm, 05/27/22 10:44:00 EST, Height, kg, 05/27/22 10:44:00 EST, Dosing Weight Start Date: 05/27/22 Status: Ordered Start: 11-17-2021 omeprazole 40 mg oral delayed release capsule Dose : 40 mg = 1 cap(s), Oral, qDay, # 90 cap(s), 1 Refill(s), Pharmacy: [facility] 177.4, cm, 06/25/21 8:19:00 EST, Height Start Date: 11/17/21 Status: Ordered Start: 11-10-2020 End: 11-05-2021 omeprazole 40 mg oral delaye d release capsule Dose : 40 mg = 1 cap(s), Oral, qDay, X 90 day(s), # 90 cap(s), 3 Refill(s), 11/05/21 13:34:00 EDT, Pharmacy: [facility] 177, cm, 09/29/20 8:16:00 EDT, Height, kg, 09/29/20 8:16:00 EDT, Dosing Weight Start Date: 11/10/20 Stop Date: 11/05/21 Status: Ordered sulfamethoxazole 800 mg / trimethoprim 160 mg oral tablet (2 sources) Dihydrofolate Reductase Inhibitor Antibacterial, Sulfonamide Antimicrobial Start: 02-03-2023 End: 02-10-2023 take 1 tablet by mouth twice daily Bactrim DS 800 mg-160 mg oral tablet Dose = 1 tab(s), Oral, BID, X 7 day(s), # 14 tab(s), 0 Refill(s), 91 Start Date: 02/03/23 Stop Date: 02/10/23 Status: Ordered Start: 07-28-2022 End: 08-07-2022 take 1 tablet by mouth twice daily Bactrim DS 800 mg-160 mg oral tablet Dose = 1 tab(s), Oral, BID, X 10 day(s), # 20 tab(s), 0 Refill(s), Pharmacy: [facility] #[id number], 176.5, cm, 07/28/22 15:52:00 EDT, Height, 100.1 Start Date: 07/28/22 Stop Date: 08/07/22 Status: Ordered tamsulosin hydrochloride 0.4 mg oral capsule (2 sources) alpha-Adrenergic Sherrill Start: 03-26-2021 tamsu losin 0.4 mg oral capsule Dose : 0.4 mg = 1 cap(s), Oral, qDay, # 90 cap(s), 0 Refill(s) Start Date: 03/26/21 Status: Ordered tiZANidine 4 mg oral capsule (4 sources) 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 Start: 01-25-2023 tiZANidine 4 mg oral capsule Dose : 4 mg = 1 cap(s), Oral, q8h, PRN for muscle spasm, # 30 cap(s), 0 Refill(s), Pharmacy: [facility] #[id number], Low back pain, 176.5, cm, 01/25/23 10:06:00 EDT, Height, kg, 01/25/23 10:06:00 EDT, Dosing Weight Start Date: 01/25/23 Status: Ordered Start: 10-15-2022 End: 10-29-2022 tiZANidine 4 mg oral tablet Dose : 4 mg = 1 tab(s), Oral, q8h, # 42 tab(s), 0 Refill(s), Pharmacy: [facility] #[id number], Neck pain Diabetes mellitus, 176.5, cm, 10/15/22 12:50:00 EDT, Height Start Date: 10/15/22 Stop Date: 10/29/22 Status: Ordered triamcinolone acetonide 1 mg/ml topical cream (4 sources) Corticosteroid Start: 01-25-2023 triamcinolone 0.1% topical cream Apply 1 sarah, Topical, BID, # 80 gram(s), 0 Refill(s), Cream, 95.4 Start Date: 01/25/23 Status: Ordered Problems Active Problems Problem Classification Problem Date Documented Date Episodic/Chronic Abdominal pain (7 sources) Left upper quadrant pain 02-08-2023 Episodic Acute and unspecified renal failure (7 sources) Acute renal failure syndrome; Translations: [Acute kidney failure, unspecified] Onset: 10-26-2023 10-14-2023 Episodic Asthma (1 source) Exercise-induced asthma; Translations: [Exercise induced bronchospasm] Onset: 12-08-2021 Chronic Chronic kidney disease (2 sources) Chronic kidney disease 04-04-2024 Chronic Diabetes mellitus without complication (20 sources) Diabetes mellitus; Translations: [Type 2 diabetes mellitus without complication] Onset: 12-08-2021 04-26-2019 Chronic Disorders of lipid metabolism (20 sources) Mixed hyperlipidemia; Translations: [Mixed hyperlipidemia] Onset: 12-08-2021 04-26-2019 Chronic Esophageal disorders (20 sources) Gastroesophageal reflux disease; Translations: [Gastroesophageal reflux disease without esophagitis] Onset: 12-08-2021 04-26-2019 Chronic Essential hypertension (20 sources) Benign essential hypertension; Translations: [Essential hypertension] Onset: 12-08-2021 04-26-2019 Chronic Fluid and electrolyte disorders (15 sources) Hypo-osmolality and or hyponatremia; Translations: [Hypo-osmolality and hyponatremia] Onset: 12-08-2021 Episodic Hyperplasia of prostate (1 source) Benign prostatic hypertrophy without outflow obstruction; Translations: [Benign prostatic hyperplasia without lower urinary tract symptoms] Onset: 12-08-2021 Chronic Inflammation; infection of eye (except that caused by tuberculosis or sexually transmitteddisease) (2 sources) Allergic conjunctivitis 04-08-2025 Episodic Noninfectious gastroenteritis (7 sources) Colitis 02-23-2023 Episodic Other circulatory disease (4 sources) Low blood pressure 11-24-2023 Episodic Other circulatory disease (1 source) Carotid bruit 10-02-2024 Episodic Other connective tissue disease (1 source) Disorder of soft tissue; Translations: [Other specified soft tissue disorders] Onset: 02-03-2023 Episodic Other diseases of kidney and ureters (7 sources) Renal impairment 02-08-2023 Episodic Other hematologic conditions (7 sources) ESR raised 02-08-2023 Episodic Other inflammatory condition of skin (12 sources) Generalized pruritus 05-27-2022 Episodic Other nervous system disorders (20 sources) Piriformis syndrome 04-26-2019 Chronic Other nervous system disorders (12 sources) Paresthesia 05-27-2022 Episodic Other non-traumatic joint disorders (12 sources) Shoulder pain 07-08-2022 Episodic Other nutritional; endocrine; and metabolic disorders (7 sources) Unintentional weight loss 02-08-2023 Episodic Other screening for suspected conditions (not mental disorders or infectious disease) (20 sources) Raised prostate specific antigen; Translations: [Elevated C-reactive protein] 04-26-2019 Episodic Other skin disorders (10 sources) Folliculitis 07-28-2022 Episodic Other skin disorders (7 sources) Swelling of hand 02-08-2023 Episodic Other upper respiratory disease (2 sources) Seasonal allergy 08-21-2024 Chronic Residual codes; unclassified (1 source) Problem situation; Translations: [Other problems related to lifestyle] Onset: 12-08-2021 Episodic Residual codes; unclassified (13 sources) Edema, generalized; Translations: [Generalized edema] 07-08-2022 Episodic Residual codes; unclassified (11 sources) Edema of lower extremity 07-15-2022 Episodic Residual codes; unclassified (2 sources) Edema 08-21-2024 Episodic Skin and subcutaneous tissue infections (2 sources) Cellulitis; Translations: [Cellulitis, unspecified] Onset: 02-03-2023 Episodic Spondylosis; intervertebral disc disorders; other back problems (20 sources) Cervical radiculitis; Translations: [Neck pain] 07-08-2022 Episodic Thyroid disorders (20 sources) Hypothyroidism; Translations: [Hypothyroidism, unspecified] Onset: 12-08-2021 04-08-2020 Chronic Unclassified (1 source) Elevated prostate specific antigen [PSA]; Translations: [ELEVATED PROSTATE SPECIFIC ANTIGEN [PSA]] Onset: 03-21-2017 Unclassified (4 sources) Injury of right foot 12-07-2023 Viral infection (2 sources) Varicella-zoster virus infection 04-04-2024 Episodic Past or Other Problems Problem Classification Problem Date Documented Da te Episodic/Chronic Malaise and fatigue (2 sources) Other fatigue; Translations: [Other fatigue] Onset: 03-28-2024 Episodic Results Test Name Value Interpretation Reference Range Facility .GFRon 09-24-2024 Estimated Glomerular Filtration Rate 30 ml/min/1.73sqm Normal [facility] Comment on above: Result Comment: Stages of Chronic Kidney Disease (CKD) Stage Description eGFR(ml/min/1.73 sq.m.) CKD 1 Normal kidney function or >=90 normal kindney function with possible kidney damage (ex. Proteinuria) CKD 2 Kidney damage with mild loss 60-89 of kidney function CKD 3a Mild to moderate loss of kidney 45-59 function CKD 3b Moderate to severe loss of 30-44 of kindey function CKD 4 Severe loss of kidney function 15-29 CKD 5 Kidney failure <15 Note: (go live 2024) the eGFR calculation was updated to the 2020 CKD-EPI creatinine equation without a race factor to calculate the eGFR results. Performed By: #### A JESSI, ADIFF, VIDH, CBC, FT4, TSH, CMP, GFR #### [place] [id number] [place], [place] [address] A1Con 09-24-2024 Glucose [Mass/Vol] 117 mg/dL Normal [facility] Comment on above: Result Comment: Marcie mated Average Glucose calculated by equation ((28.7xA1C)-46.7) Estimated average glucose (eAG) is a calculated value from Hemoglobin A1C and is patient registration representative of the average blood glucose level in the last 2-3 month period. Normal range: less than 114 mg/dL Performed By: #### A JESSI, ADIFF, VIDH, CBC, FT4, TSH, CMP, GFR #### [place] [id number] [place], [place] [address] HbA1c (Bld) [Mass fraction] 5.7 % Normal 4.3-6.4 [facility] Comment on above: Performed By: #### A JESSI, ADIFF, VIDH, CBC, FT4, TSH, CMP, GFR #### [address] [address] CMPon 09-24-2024 Albumin Level 3.1 G/dL Low 3.4-4.8 [facility] Comment on above: Performed By: #### A JESSI, ADIFF, VIDH, CBC, FT4, TSH, CMP, GFR #### [address] [address] Albumin/Globulin [Mass ratio] 0.8 {ratio} Low 1.1-2.5 [facility] Comment on above: Performed By: #### A JESSI, ADIFF, VIDH, CBC, FT4, TSH, CMP, GFR #### [address] [address] ALP [Catalytic activity/Vol] 102 U/L Normal 40-135 [facility] Comment on above: Performed By: #### A JESSI, ADIFF, VIDH, CBC, FT4, TSH, CMP, GFR #### [place] [id number] ALT [Catalytic activity/Vol] 24 U/L Normal 16-63 [facility] Comment on above: Performed By: #### A JESSI, ADIFF, VIDH, CBC, FT4, TSH, CMP, GFR #### [address] [address] AST [Catalytic activity/Vol] 21 U/L Normal 10-40 [facility] Comment on above: Performed By: #### A JESSI, ADIFF, VIDH, CBC, FT4, TSH, CMP, GFR #### [place] [id number] Bili Total 0.6 mg/dL Normal 0.2-1.0 [facility] Comment on above: Result Comment: Use of this assay is not recommended for patients undergoing treatment with eltrombopag due to the potential for falsely elevated results. Performed By: #### A JESSI, ADIFF, VIDH, CBC, FT4, TSH, CMP, GFR #### [address] [address] BUN/Creatinine Ratio 11 ratio Normal 7-27 [facility] Comment on above: Performed By: #### A JESSI, ADIFF, VIDH, CBC, FT4, TSH, CMP, GFR #### [address] [address] Calcium [Mass/Vol] 8.5 mg/dL Normal 8.4-10.2 [facility] Comment on above: Performed By: #### A JESSI, ADIFF, VIDH, CBC, FT4, TSH, CMP, GFR #### [address] [address] Chloride [Moles/Vol] 95 mmol/L Low 98-107 [facility] Comment on above: Performed By: #### A JESSI, ADIFF, VIDH, CBC, FT4, TSH, CMP, GFR #### [address] [address] CO2 [Moles/Vol] 20 mmol/L Low 23-31 [facility] Comment on above: Performed By: #### A JESSI, ADIFF, VIDH, CBC, FT4, TSH, CMP, GFR #### [address] [address] Creatinine [Mass/Vol] 2.20 mg/dL High 0.67-1.17 [facility] Comment on above: Performed By: #### A JESSI, ADIFF, VIDH, CBC, FT4, TSH, CMP, GFR #### [address] [address] Electrolyte Balance 12.0 mEq/L Normal 4.0-15.0 [facility] Comment on above: Performed By: #### A JESSI, ADIFF, VIDH, CBC, FT4, TSH, CMP, GFR #### [address] [address] Globulin 3.9 G/dL Normal 2.7-4.4 [facility] Comment on above: Performed By: #### A JESSI, ADIFF, VIDH, CBC, FT4, TSH, CMP, GFR #### [address] [address] Glucose [Mass/Vol] 208 mg/dL High 83-110 [facility] Comment on above: Performed By: #### A JESSI, ADIFF, VIDH, CBC, FT4, TSH, CMP, GFR #### [address] [address] Potassium [Moles/Vol] 4.6 mmol/L Normal 3.5-5.1 [facility] Comment on above: Performed By: #### A JESSI, ADIFF, VIDH, CBC, FT4, TSH, CMP, GFR #### [address] [address] Sodium [Moles/Vol] 127 mmol/L Low 136-145 [facility] Comment on above: Performed By: #### A JESSI, ADIFF, VIDH, CBC, FT4, TSH, CMP, GFR #### [address] [address] Total Protein 7.0 G/dL Normal 6.4-8.2 [facility] Comment on above: Performed By: #### A JESSI, ADIFF, VIDH, CBC, FT4, TSH, CMP, GFR #### [address] [address] Urea nitrogen [Mass/Vol] 24 mg/dL High 7-18 [facility] Comment on above: Performed By: #### A JESSI, ADIFF, VIDH, CBC, FT4, TSH, CMP, GFR #### [address] [address] FT4on 09-24-2024 Free T4 [Mass/Vol] 0.98 ng/dL Normal 0.76-1.46 [facility] Comment on above: Performed By: #### A 1C, FT4, GFR, TSH, LIPID, CMP #### [address] [address] #### PSA #### [place] [address] LABORATORYOrdered By: SYSTEM SYSTEM on 09-24-2024 Albumin BCP dye [Mass/Vol] 3.1 G/dL Low 3.4 - 4.8 G/dL AO ADM SS Albumin/Globulin [Mass ratio] 0.8 {ratio} Low 1.1 - 2.5 ratio AO ADM SS ALP [Catalytic activity/Vol] 102 U/L Normal 40 - 135 U/L AO ADM SS ALT With P-5'-P [Catalytic activity/Vol] 24 U/L Normal 16 - 63 U/L AO ADM SS AST With P-5'-P [Catalytic activity/Vol] 21 U/L Normal 10 - 40 U/L AO ADM SS Bilirubin [Mass/Vol] 0.6 mg/dL Normal 0.2 - 1 .0 mg/dL AO ADM SS Comment on above: Interpretive Data: U se of this assay is not recommended for patients undergoing treatment with eltrombopag due to the potential for falsely elevated results. Calcium [Mass/Vol] 8.5 mg/dL Normal 8.4 - 10. 2 mg/dL AO ADM SS Chloride [Moles/Vol] 95 mmol/L Low 98 - 10 7 mmol/L AO ADM SS CO2 [Moles/Vol] 20 mmol/L Low 23 - 31 mmol/L AO ADM SS Creatinine [Mass/Vol] 2.20 mg/dL High 0.67 - 1.17 mg/dL AO ADM SS Electrolyte Balance 12.0 mEq/L Normal 4.0 - 15 .0 mEq/L AO ADM SS Estimated Glomerular Filtration Rate 30 ml/min/1.73sqm Invalid Interpretation Code AO Chemistry S Comment on above: Interpretive Data: Stages of Chronic Kidney Disease (CKD) Stage Description eGFR(ml/min/1.73 sq.m.) CKD 1 Normal kidney function or >=90 normal kindney function with possible kidney damage (ex. Proteinuria) CKD 2 Kidney damage with mild loss 60-89 of kidney function CKD 3a Mild to moderate loss of kidney 45-59 function CKD 3b Moderate to severe loss of 30-44 of kindey function CKD 4 Severe loss of kidney function 15-29 CKD 5 Kidney failure <15 Note: (go live 2024) the eGFR calculation was updated to the 2020 CKD-EPI creatinine equation without a race factor to calculate the eGFR results. Free T4 [Mass/Vol] 0.98 ng/dL Normal 0.76 - 1. 46 ng/dL AO ADM SS Globulin 3.9 G/dL Normal 2.7 - 4.4 G/dL AO ADM SS Glucose [Mass/Vol] 117 mg/dL Invalid Interpretation Code AO Chemistry S Comment on above: Interpretive Data: E stimated average glucose (eAG) is a calculated value from Hemoglobin A1C and is patient registration representative of the average blood glucose level in the last 2-3 month period. Normal range: less than 114 mg/dL Glucose [Mass/Vol] 208 mg/dL High 83 - 110 mg/dL AO ADM SS HbA1c (Bld) [Mass fraction] 5.7 % Normal 4.3 - 6.4 % AO ADM SS Potassium [Moles/Vol] 4.6 mmol/L Normal 3.5 - 5.1 mmol/L AO ADM SS Prostate specific Ag [Mass/Vol] 0.95 ng/mL Normal 0.02 - 4.00 ng/mL AH ADM SS Comment on above: Interpretive Data: P atient results determined by assays using different manufacturers for methods may not be comparable. Protein [Mass/Vol] 7.0 G/dL Normal 6.4 - 8.2 G/dL AO ADM SS Sodium [Moles/Vol] 127 mmol/L Low 136 - 145 mmol/L AO ADM SS TSH Qn 27.66 m[IU]/L High 0.36 - 3.74 mcIU/mL AO ADM SS Urea nitrogen [Mass/Vol] 24 mg/dL High 7 - 18 mg/dL AO ADM SS Urea nitrogen/Creatinine [Mass ratio] 11 ratio Normal 7 - 27 ratio AO ADM SS LABORATORYOrdered By: Moses Sanchez on 09-24-2024 Cholesterol [Mass/Vol] 158 mg/dL Normal 0 - 200 mg/dL AO ADM SS Comment on above: Interpretive Data: C holesterol Reference Interval: Less than 200 Desirable 200-239 Borderline high risk 240 and above High risk Cholesterol in HDL [Mass/Vol] 82 mg/dL High 40 - 60 mg/dL AO ADM SS Cholesterol in LDL [Mass/Vol] 64 mg/dL Normal 0 - 130 mg/dL AO ADM SS Triglyceride [Mass/Vol] 60 mg/dL Normal 0 - 150 mg/dL AO ADM SS Comment on above: Interpretive Data: T riglyceride Reference Interval: Less than 150 Normal 150-199 Borderline high risk 200-499 High risk 500 or higher Very high risk LIPIDon 09-24-2024 Cholesterol [Mass/Vol] 158 mg/dL Normal 0-200 [facility] Comment on above: Result Comment: Chol esterol Reference Interval: Less than 200 Desirable 200-239 Borderline high risk 240 and above High risk Performed By: #### A JESSI, ADIFF, VIDH, CBC, FT4, TSH, CMP, GFR #### [address] [address] Cholesterol in HDL [Mass/Vol] 82 mg/dL High 40-60 [facility] Comment on above: Performed By: #### A JESSI, ADIFF, VIDH, CBC, FT4, TSH, CMP, GFR #### [address] [address] Cholesterol in LDL [Mass/Vol] 64 mg/dL Normal 0-130 [facility] Comment on above: Performed By: #### A JESSI, ADIFF, VIDH, CBC, FT4, TSH, CMP, GFR #### [address] [address] Triglyceride [Mass/Vol] 60 mg/dL Normal 0-150 [facility] Comment on above: Result Comment: Trig lyceride Reference Interval: Less than 150 Normal 150-199 Borderline high risk 200-499 High risk 500 or higher Very high risk Performed By: #### A JESSI, ADIFF, VIDH, CBC, FT4, TSH, CMP, GFR #### [address] [address] PSAon 09-24-2024 Prostate Specific Antigen 0.95 ng/mL Normal 0.02-4.00 [facility] Comment on above: Result Comment: Deneen ent results determined by assays using different manufacturers for methods may not be comparable. Performed By: #### A JESSI, ADIFF, VIDH, CBC, FT4, TSH, CMP, GFR #### [address] [address] TSHon 09-24-2024 TSH Qn 27.66 m[IU]/L High 0.36-3.74 [facility] Comment on above: Performed By: #### A 1C, FT4, GFR, TSH, LIPID, CMP #### [address] [address] #### PSA #### [address] [address] .Auto Diffon 03-28-2024 Basophil, Absolute 0.1 10 3/mcL Normal 0.0-0.2 [facility] Comment on above: Performed By: #### A JESSI, ADIFF, VIDH, CBC, FT4, TSH, CMP, GFR #### [address] [address] Basophils/100 WBC (Bld) 0.9 % Normal 0.0-2.5 [facility] Comment on above: Performed By: #### A JESSI, ADIFF, VIDH, CBC, FT4, TSH, CMP, GFR #### [address] [address] Eosinophil, Absolute 0.4 10 3/mcL Normal 0.0-0.7 [facility] Comment on above: Performed By: #### A JESSI, ADIFF, VIDH, CBC, FT4, TSH, CMP, GFR #### [address] [address] Eosinophils/100 WBC (Bld) 5.9 % Normal 0.0-7.0 [facility] Comment on above: Performed By: #### A JESSI, ADIFF, VIDH, CBC, FT4, TSH, CMP, GFR #### [address] [address] Lymphocyte, Absolute 0.9 10 3/mcL Normal 0.9-4.3 [facility] Comment on above: Performed By: #### A JESSI, ADIFF, VIDH, CBC, FT4, TSH, CMP, GFR #### [address] [address] Lymphocytes/100 WBC (Bld) 15.8 % Low 20.0-40.0 [facility] Comment on above: Performed By: #### A JESSI, ADIFF, VIDH, CBC, FT4, TSH, CMP, GFR #### [address] [address] Monocyte, Absolute 0.6 10 3/mcL Normal 0.1-1.4 [facility] Comment on above: Performed By: #### A JESSI, ADIFF, VIDH, CBC, FT4, TSH, CMP, GFR #### [address] [address] Monocytes/100 WBC (Bld) 9.4 % Normal 2.0-13.0 [facility] Comment on above: Performed By: #### A JESSI, ADIFF, VIDH, CBC, FT4, TSH, CMP, GFR #### [address] [address] Neutrophils/100 WBC (Bld) 68.0 % Normal 50.0-75.0 [facility] Comment on above: Performed By: #### A JESSI, ADIFF, VIDH, CBC, FT4, TSH, CMP, GFR #### [address] [address] .GFRon 03-28-2024 GFR 35 ml/min/1.73sqm Normal [facility] Comment on above: Result Comment: GFR Population mean for , Non- Americans Ages 20-29 = 116 mL/min/1.73 sq.m. Ages 30-39 = 107 mL/min/1.73 sq.m. Ages 40-49 = 99 mL/min/1.73 sq.m. Ages 50-59 = 93 mL/min/1.73 sq.m. Ages 60-69 = 85 mL/min/1.73 sq.m. Ages 70+ = 75 mL/min/1.73 sq.m. Chronic Kidney Disease: Less than 60 mL/min/1.73 square meters End Stage Renal Disease: Less than 15 mL/min/1.73 square meters Performed By: #### A JESSI, ADIFF, VIDH, CBC, FT4, TSH, CMP, GFR #### [address] [address] GFR Non- 29 ml/min/1.73sqm Normal [facility] Comment on above: Result Comment: GFR Population mean for , Non- Americans Ages 20-29 = 116 mL/min/1.73 sq.m. Ages 30-39 = 107 mL/min/1.73 sq.m. Ages 40-49 = 99 mL/min/1.73 sq.m. Ages 50-59 = 93 mL/min/1.73 sq.m. Ages 60-69 = 85 mL/min/1.73 sq.m. Ages 70+ = 75 mL/min/1.73 sq.m. Chronic Kidney Disease: Less than 60 mL/min/1.73 square meters End Stage Renal Disease: Less than 15 mL/min/1.73 square meters Performed By: #### A JESSI, ADIFF, VIDH, CBC, FT4, TSH, CMP, GFR #### [address] [address] .NEUABSon 03-28-2024 Neutrophil, Absolute 4.1 10 3/mcL Normal 2.3-8.1 [facility] Comment on above: Performed By: #### A JESSI, ADIFF, VIDH, CBC, FT4, TSH, CMP, GFR #### [address] [address] CBCon 03-28-2024 Erythrocyte distribution width (RBC) [Ratio] 14.3 % Normal 11.5-15.5 [facility] Comment on above: Performed By: #### A JESSI, ADIFF, VIDH, CBC, FT4, TSH, CMP, GFR #### [address] [address] Hematocrit (Bld) [Volume fraction] 34.1 % Low 40.0-52.0 [facility] Comment on above: Performed By: #### A JESSI, ADIFF, VIDH, CBC, FT4, TSH, CMP, GFR #### [address] [address] Hgb 11.3 G/dL Low 13.0-17.5 [facility] Comment on above: Performed By: #### A JESSI, ADIFF, VIDH, CBC, FT4, TSH, CMP, GFR #### [address] [address] MCH (RBC) [Entitic mass] 32.5 pg Normal 27.0-33.0 [facility] Comment on above: Performed By: #### A JESSI, ADIFF, VIDH, CBC, FT4, TSH, CMP, GFR #### [address] [address] MCHC 33.2 G/dL Normal 32.0-36.0 [facility] Comment on above: Performed By: #### A JESSI, ADIFF, VIDH, CBC, FT4, TSH, CMP, GFR #### [place] [address] MCV (RBC) [Entitic vol] 98.0 fL Normal 81.0-100.0 [facility] Comment on above: Performed By: #### A JESSI, ADIFF, VIDH, CBC, FT4, TSH, CMP, GFR #### [address] [address] Platelet 265 10 3/mcL Normal 150-450 [facility] Comment on above: Performed By: #### A JESSI, ADIFF, VIDH, CBC, FT4, TSH, CMP, GFR #### [address] [address] Platelet mean volume (Bld) [Entitic vol] 8.2 fL Normal 6.4-10.5 [facility] Comment on above: Performed By: #### A JESSI, ADIFF, VIDH, CBC, FT4, TSH, CMP, GFR #### [place] [address] RBC 3.48 10 6/mcL Low 4.50-6.00 [facility] Comment on above: Performed By: #### A JESSI, ADIFF, VIDH, CBC, FT4, TSH, CMP, GFR #### [address] [address] WBC 6.0 10 3/mcL Normal 4.5-10.8 [facility] Comment on above: Performed By: #### A JESSI, ADIFF, VIDH, CBC, FT4, TSH, CMP, GFR #### [address] [address] CMPon 03-28-2024 Albumin Level 3.3 G/dL Low 3.4-4.8 [facility] Comment on above: Performed By: #### A JESSI, ADIFF, VIDH, CBC, FT4, TSH, CMP, GFR #### [address] [address] Albumin/Globulin [Mass ratio] 0.9 {ratio} Low 1.1-2.5 [facility] Comment on above: Performed By: #### A JESSI, ADIFF, VIDH, CBC, FT4, TSH, CMP, GFR #### [place] [id number] ALP [Catalytic activity/Vol] 84 U/L Normal 40-135 [facility] Comment on above: Performed By: #### A JESSI, ADIFF, VIDH, CBC, FT4, TSH, CMP, GFR #### [address] [address] ALT [Catalytic activity/Vol] 16 U/L Normal 16-63 [facility] Comment on above: Performed By: #### A JESSI, ADIFF, VIDH, CBC, FT4, TSH, CMP, GFR #### [address] [address] AST [Catalytic activity/Vol] 13 U/L Normal 10-40 [facility] Comment on above: Performed By: #### A JESSI, ADIFF, VIDH, CBC, FT4, TSH, CMP, GFR #### [place] [id number] Bili Total 0.5 mg/dL Normal 0.2-1.0 [facility] Comment on above: Result Comment: Use of this assay is not recommended for patients undergoing treatment with eltrombopag due to the potential for falsely elevated results. Performed By: #### A JESSI, ADIFF, VIDH, CBC, FT4, TSH, CMP, GFR #### [place] [address] BUN/Creatinine Ratio 9 ratio Normal 7-27 [facility] Comment on above: Performed By: #### A JESSI, ADIFF, VIDH, CBC, FT4, TSH, CMP, GFR #### [place] [address] Calcium [Mass/Vol] 8.9 mg/dL Normal 8.4-10.2 [facility] Comment on above: Performed By: #### A JESSI, ADIFF, VIDH, CBC, FT4, TSH, CMP, GFR #### [address] [address] Chloride [Moles/Vol] 101 mmol/L Normal 98-107 [facility] Comment on above: Performed By: #### A JESSI, ADIFF, VIDH, CBC, FT4, TSH, CMP, GFR #### [place] [address] CO2 [Moles/Vol] 26 mmol/L Normal 23-31 [facility] Comment on above: Performed By: #### A JESSI, ADIFF, VIDH, CBC, FT4, TSH, CMP, GFR #### [place] [address] Creatinine [Mass/Vol] 2.24 mg/dL High 0.70-1.30 [facility] Comment on above: Result Comment: Test ing performed on Siemens Dimension EXL analyzer using a modified kinetic Andreea technique. Performed By: #### A JESSI, ADIFF, VIDH, CBC, FT4, TSH, CMP, GFR #### [place] [address] Electrolyte Balance 7.0 mEq/L Normal 4.0-15.0 [facility] Comment on above: Performed By: #### A JESSI, ADIFF, VIDH, CBC, FT4, TSH, CMP, GFR #### [address] [address] Globulin 3.5 G/dL Normal [facility] Comment on above: Performed By: #### A JESSI, ADIFF, VIDH, CBC, FT4, TSH, CMP, GFR #### [address] [address] Glucose [Mass/Vol] 137 mg/dL High 83-110 [facility] Comment on above: Performed By: #### A JESSI, ADIFF, VIDH, CBC, FT4, TSH, CMP, GFR #### [address] [address] Potassium [Moles/Vol] 4.3 mmol/L Normal 3.5-5.1 [facility] Comment on above: Performed By: #### A JESSI, ADIFF, VIDH, CBC, FT4, TSH, CMP, GFR #### [address] [address] Sodium [Moles/Vol] 134 mmol/L Low 136-145 [facility] Comment on above: Performed By: #### A JESSI, ADIFF, VIDH, CBC, FT4, TSH, CMP, GFR #### [address] [address] Total Protein 6.8 G/dL Normal 6.4-8.2 [facility] Comment on above: Performed By: #### A JESSI, ADIFF, VIDH, CBC, FT4, TSH, CMP, GFR #### [address] [address] Urea nitrogen [Mass/Vol] 20 mg/dL High 7-18 [facility] Comment on above: Performed By: #### A JESSI, ADIFF, VIDH, CBC, FT4, TSH, CMP, GFR #### [address] [address] FT4on 03-28-2024 Free T4 [Mass/Vol] 0.99 ng/dL Normal 0.76-1.46 [facility] Comment on above: Performed By: #### A JESSI, ADIFF, VIDH, CBC, FT4, TSH, CMP, GFR #### [place] [id number] [place] [address] LABORATORYOrdered By: SYSTEM SYSTEM on 03-28-2024 25-hydroxyvitamin D3 [Mass/Vol] 40.7 ng/mL Invalid Interpretation Code AO ADM SS Comment on above: Interpretive Data: I nterpretive Values Based on Total 25(OH) Vitamin D: Deficient <20 ng/mL Insufficient 20 - <30 ng/mL Sufficient 30-100 ng/mL Albumin BCP dye [Mass/Vol] 3.3 G/dL Low 3.4 - 4.8 G/dL AO ADM SS Albumin/Globulin [Mass ratio] 0.9 {ratio} Low 1.1 - 2.5 ratio AO ADM SS ALP [Catalytic activity/Vol] 84 U/L Normal 40 - 135 U/L AO ADM SS ALT With P-5'-P [Catalytic activity/Vol] 16 U/L Normal 16 - 63 U/L AO ADM SS AST With P-5'-P [Catalytic activity/Vol] 13 U/L Normal 10 - 40 U/L AO ADM SS Basophils (Bld) [#/Vol] 0.1 103/mcL Normal 0.0 - 0.2 10^3/mcL AO Workflow SS Basophils/100 WBC (Bld) 0.9 % Normal 0.0 - 2.5 % AO Workflow SS Bilirubin [Mass/Vol] 0.5 mg/dL Normal 0.2 - 1 .0 mg/dL AO ADM SS Comment on above: Interpretive Data: U se of this assay is not recommended for patients undergoing treatment with eltrombopag due to the potential for falsely elevated results. Calcium [Mass/Vol] 8.9 mg/dL Normal 8.4 - 10. 2 mg/dL AO ADM SS Chloride [Moles/Vol] 101 mmol/L Normal 98 - 10 7 mmol/L AO ADM SS CO2 [Moles/Vol] 26 mmol/L Normal 23 - 31 mmol/L AO ADM SS Creatinine [Mass/Vol] 2.24 mg/dL High 0.70 - 1.30 mg/dL AO ADM SS Comment on above: Interpretive Data: T esting performed on Siemens Dimension EXL analyzer using a modified kinetic Andreea technique. Electrolyte Balance 7.0 mEq/L Normal 4.0 - 15 .0 mEq/L AO ADM SS Eosinophil, Absolute 0.4 103/mcL Normal 0.0 - 0 .7 10^3/mcL AO Workflow SS Eosinophils/100 WBC (Bld) 5.9 % Normal 0.0 - 7.0 % AO Workflow SS Erythrocyte distribution width (RBC) [Ratio] 14.3 % Normal 11.5 - 15.5 % AO Workflow SS Free T4 [Mass/Vol] 0.99 ng/dL Normal 0.76 - 1. 46 ng/dL AO ADM SS GFR/1.73 sq M.predicted among blacks MDRD (S/P/Bld) [Vol rate/Area] 35 ml/min/1.73sqm Invalid Interpretation Code AO Chemistry S Comment on above: Interpretive Data: GFR Population mean for , Non- Americans Ages 20-29 = 116 mL/min/1.73 sq.m. Ages 30-39 = 107 mL/min/1.73 sq.m. Ages 40-49 = 99 mL/min/1.73 sq.m. Ages 50-59 = 93 mL/min/1.73 sq.m. Ages 60-69 = 85 mL/min/1.73 sq.m. Ages 70+ = 75 mL/min/1.73 sq.m. Chronic Kidney Disease: Less than 60 mL/min/1.73 square meters End Stage Renal Disease: Less than 15 mL/min/1.73 square meters GFR/1.73 sq M.predicted among non-blacks MDRD (S/P/Bld) [Vol rate/Area] 29 ml/min/1.73sqm Invalid Interpretation Code AO Chemistry S Comment on above: Interpretive Data: GFR Population mean for , Non- Americans Ages 20-29 = 116 mL/min/1.73 sq.m. Ages 30-39 = 107 mL/min/1.73 sq.m. Ages 40-49 = 99 mL/min/1.73 sq.m. Ages 50-59 = 93 mL/min/1.73 sq.m. Ages 60-69 = 85 mL/min/1.73 sq.m. Ages 70+ = 75 mL/min/1.73 sq.m. Chronic Kidney Disease: Less than 60 mL/min/1.73 square meters End Stage Renal Disease: Less than 15 mL/min/1.73 square meters Globulin 3.5 G/dL Invalid Interpretation Code AO ADM SS Glucose [Mass/Vol] 137 mg/dL High 83 - 110 mg/dL AO ADM SS Hematocrit (Bld) [Volume fraction] 34.1 % Low 40.0 - 52.0 % AO Workflow SS Hemoglobin (Bld) [Mass/Vol] 11.3 G/dL Low 13.0 - 17.5 G/dL AO Workflow SS Lymphocytes (Bld) [#/Vol] 0.9 103/mcL Normal 0.9 - 4.3 10^3/mcL AO Workflow SS Lymphocytes/100 WBC (Bld) 15.8 % Low 20.0 - 40.0 % AO Workflow SS MCH (RBC) [Entitic mass] 32.5 pg Normal 27.0 - 33.0 pg AO Workflow SS MCHC 33.2 G/dL Normal 32.0 - 36.0 G/dL AO Workflow SS MCV (RBC) [Entitic vol] 98.0 fL Normal 81.0 - 100.0 fL AO Workflow SS Monocytes (Bld) [#/Vol] 0.6 103/mcL Normal 0.1 - 1.4 10^3/mcL AO Workflow SS Monocytes/100 WBC (Bld) 9.4 % Normal 2.0 - 13.0 % AO Workflow SS Neutrophils (Bld) [#/Vol] 4.1 103/mcL Normal 2.3 - 8.1 10^3/mcL AO Workflow SS Neutrophils/100 WBC (Bld) 68.0 % Normal 50.0 - 75.0 % AO Workflow SS Platelet mean volume (Bld) [Entitic vol] 8.2 fL Normal 6.4 - 10.5 fL AO Workflow SS Platelets (Bld) [#/Vol] 265 103/mcL Normal 150 - 450 10^3/mcL AO Workflow SS Potassium [Moles/Vol] 4.3 mmol/L Normal 3.5 - 5.1 mmol/L AO ADM SS Protein [Mass/Vol] 6.8 G/dL Normal 6.4 - 8.2 G/dL AO ADM SS RBC (Bld) [#/Vol] 3.48 106/mcL Low 4.50 - 6.0 0 10^6/mcL AO Workflow SS Sodium [Moles/Vol] 134 mmol/L Low 136 - 145 mmol/L AO ADM SS TSH Qn 23.93 m[IU]/L High 0.36 - 3.74 mcIU/mL AO ADM SS Urea nitrogen [Mass/Vol] 20 mg/dL High 7 - 18 mg/dL AO ADM SS Urea nitrogen/Creatinine [Mass ratio] 9 ratio Normal 7 - 27 ratio AO ADM SS WBC (Bld) [#/Vol] 6.0 103/mcL Normal 4.5 - 10.8 10^3/mcL AO Workflow SS TSHon 03-28-2024 TSH Qn 23.93 m[IU]/L High 0.36-3.74 [facility] Comment on above: Performed By: #### A JESSI, ADIFF, VIDH, CBC, FT4, TSH, CMP, GFR #### [address] [address] VIDHon 03-28-2024 Vit. D 25-Hydroxy 40.7 ng/mL Normal [facility] Comment on above: Result Comment: Inte rpretive Values Based on Total 25(OH) Vitamin D: Deficient <20 ng/mL Insufficient 20 - <30 ng/mL Sufficient 30-100 ng/mL Performed By: #### A JESSI, ADIFF, VIDH, CBC, FT4, TSH, CMP, GFR #### [address] [address] XR FOOT MINIMUM 3 VIEWS [facility] 12-14-2023 XR FOOT MINIMUM 3 VIEWS RIGHT ORIGINAL EXAMINATION: THREE XRAY VIEWS OF THE RIGHT FOOT 12/14/2023 11:25 am COMPARISON: None. HISTORY: ORDERING SYSTEM PROVIDED HISTORY: Reason for Exam: Injury to foot FINDINGS: No acute osseous, joint space, or soft tissue abnormality. Diffuse vascular calcifications. Achilles enthesitis. IMPRESSION: No acute process. I have personally reviewed the images of this examination and agree with the resident's findings and interpretation. Interpreted by: Brent Chowdhury MD Preliminary Report By: Shiva Collins MD Electronically signed By Brent Chowdhury MD Dictated Date: 12/14/2023 2:32:14 PM Prelim Date: 12/14/2023 4:34:34 PM Sign Date: 12/14/2023 4:34:34 PM Ordering Provider: JIM MICHELE [facility] ([place]) .GFRon 10-26-2023 GFR 34 ml/min/1.73sqm Normal [facility] ([place]) Comment on above: Result Comment: GFR Population mean for , Non- Americans Ages 20-29 = 116 mL/min/1.73 sq.m. Ages 30-39 = 107 mL/min/1.73 sq.m. Ages 40-49 = 99 mL/min/1.73 sq.m. Ages 50-59 = 93 mL/min/1.73 sq.m. Ages 60-69 = 85 mL/min/1.73 sq.m. Ages 70+ = 75 mL/min/1.73 sq.m. Chronic Kidney Disease: Less than 60 mL/min/1.73 square meters End Stage Renal Disease: Less than 15 mL/min/1.73 square meters Performed By: #### B MP, TSH, GFR, FT4 ####[address] [place], [place] [address] GFR Non- 28 ml/min/1.73sqm Normal [facility] ([place]) Comment on above: Result Comment: GFR Population mean for , Non- Americans Ages 20-29 = 116 mL/min/1.73 sq.m. Ages 30-39 = 107 mL/min/1.73 sq.m. Ages 40-49 = 99 mL/min/1.73 sq.m. Ages 50-59 = 93 mL/min/1.73 sq.m. Ages 60-69 = 85 mL/min/1.73 sq.m. Ages 70+ = 75 mL/min/1.73 sq.m. Chronic Kidney Disease: Less than 60 mL/min/1.73 square meters End Stage Renal Disease: Less than 15 mL/min/1.73 square meters Performed By: #### B MP, TSH, GFR, FT4 ####[address] [place], [place] [address] BMPon 10-26-2023 BUN/Creatinine Ratio 10 ratio Normal 7-27 [facility] ([place]) Comment on above: Performed By: #### B MP, TSH, GFR, FT4 ####[address] [place], [place] [address] Calcium [Mass/Vol] 8.5 mg/dL Normal 8.4-10.2 [facility] ([place]) Comment on above: Performed By: #### B MP, TSH, GFR, FT4 ####[address] [place], [place] [address] Chloride [Moles/Vol] 98 mmol/L Normal 98-107 [facility] ([place]) Comment on above: Performed By: #### B MP, TSH, GFR, FT4 ####[address] [place], [place] [address] CO2 [Moles/Vol] 17 mmol/L Low 23-31 [facility] ([place]) Comment on above: Performed By: #### B MP, TSH, GFR, FT4 ####[address] [place], [place] [address] Creatinine [Mass/Vol] 2.30 mg/dL High 0.70-1.30 [facility] ([place]) Comment on above: Performed By: #### B MP, TSH, GFR, FT4 ####[address] [place], [place] [address] Electrolyte Balance 13.0 mEq/L Normal 4.0-15.0 [facility] ([place]) Comment on above: Performed By: #### B MP, TSH, GFR, FT4 ####[address] [place], [place] [address] Glucose [Mass/Vol] 205 mg/dL High 83-110 [facility] ([place]) Comment on above: Performed By: #### B MP, TSH, GFR, FT4 ####[address] [place], [place] [address] Potassium [Moles/Vol] 5.0 mmol/L Normal 3.5-5.1 [facility] ([place]) Comment on above: Performed By: #### B MP, TSH, GFR, FT4 ####[address] [place], [place] [address] Sodium [Moles/Vol] 128 mmol/L Low 136-145 [facility] ([place]) Comment on above: Performed By: #### B MP, TSH, GFR, FT4 ####[address] [place], [place] [address] Urea nitrogen [Mass/Vol] 23 mg/dL High 7-18 [facility] ([place]) Comment on above: Performed By: #### B MP, TSH, GFR, FT4 ####[address] [place], [place] [address] FT4on 10-26-2023 Free T4 [Mass/Vol] 1.13 ng/dL Normal 0.76-1.46 [facility] ([place]) Comment on above: Performed By: #### B MP, TSH, GFR, FT4 ####[address] [place], [place] [address] LABORATORYOrdered By: SYSTEM SYSTEM on 10-26-2023 Calcium [Mass/Vol] 8.5 mg/dL Normal 8.4 - 10. 2 mg/dL AO ADM SS Chloride [Moles/Vol] 98 mmol/L Normal 98 - 10 7 mmol/L AO ADM SS CO2 [Moles/Vol] 17 mmol/L Low 23 - 31 mmol/L AO ADM SS Creatinine [Mass/Vol] 2.30 mg/dL High 0.70 - 1.30 mg/dL AO ADM SS Electrolyte Balance 13.0 mEq/L Normal 4.0 - 15 .0 mEq/L AO ADM SS Free T4 [Mass/Vol] 1.13 ng/dL Normal 0.76 - 1. 46 ng/dL AO ADM SS GFR/1.73 sq M.predicted among blacks MDRD (S/P/Bld) [Vol rate/Area] 34 ml/min/1.73sqm Invalid Interpretation Code AO Chemistry S Comment on above: Interpretive Data: GFR Population mean for , Non- Americans Ages 20-29 = 116 mL/min/1.73 sq.m. Ages 30-39 = 107 mL/min/1.73 sq.m. Ages 40-49 = 99 mL/min/1.73 sq.m. Ages 50-59 = 93 mL/min/1.73 sq.m. Ages 60-69 = 85 mL/min/1.73 sq.m. Ages 70+ = 75 mL/min/1.73 sq.m. Chronic Kidney Disease: Less than 60 mL/min/1.73 square meters End Stage Renal Disease: Less than 15 mL/min/1.73 square meters GFR/1.73 sq M.predicted among non-blacks MDRD (S/P/Bld) [Vol rate/Area] 28 ml/min/1.73sqm Invalid Interpretation Code AO Chemistry S Comment on above: Interpretive Data: GFR Population mean for , Non- Americans Ages 20-29 = 116 mL/min/1.73 sq.m. Ages 30-39 = 107 mL/min/1.73 sq.m. Ages 40-49 = 99 mL/min/1.73 sq.m. Ages 50-59 = 93 mL/min/1.73 sq.m. Ages 60-69 = 85 mL/min/1.73 sq.m. Ages 70+ = 75 mL/min/1.73 sq.m. Chronic Kidney Disease: Less than 60 mL/min/1.73 square meters End Stage Renal Disease: Less than 15 mL/min/1.73 square meters Glucose [Mass/Vol] 205 mg/dL High 83 - 110 mg/dL AO ADM SS Potassium [Moles/Vol] 5.0 mmol/L Normal 3.5 - 5.1 mmol/L AO ADM SS Sodium [Moles/Vol] 128 mmol/L Low 136 - 145 mmol/L AO ADM SS TSH Qn 2.02 m[IU]/L Normal 0.36 - 3.74 mcIU/mL AO ADM SS Urea nitrogen [Mass/Vol] 23 mg/dL High 7 - 18 mg/dL AO ADM SS Urea nitrogen/Creatinine [Mass ratio] 10 ratio Normal 7 - 27 ratio AO ADM SS TSHon 10-26-2023 TSH Qn 2.02 m[IU]/L Normal 0.36-3.74 [facility] ([place] Comment on above: Performed By: #### B MP, TSH, GFR, FT4 ####[address] [place], [place] [address] .GFRon 09-19-2023 GFR 32 ml/min/1.73sqm Normal [facility] ([place]) Comment on above: Result Comment: GFR Population mean for , Non- Americans Ages 20-29 = 116 mL/min/1.73 sq.m. Ages 30-39 = 107 mL/min/1.73 sq.m. Ages 40-49 = 99 mL/min/1.73 sq.m. Ages 50-59 = 93 mL/min/1.73 sq.m. Ages 60-69 = 85 mL/min/1.73 sq.m. Ages 70+ = 75 mL/min/1.73 sq.m. Chronic Kidney Disease: Less than 60 mL/min/1.73 square meters End Stage Renal Disease: Less than 15 mL/min/1.73 square meters Performed By: #### T SH, LIPID, FT4, A1C, CMP, GFR ####[address] [place], [place] [address] GFR Non- 26 ml/min/1.73sqm Normal [facility] ([place]) Comment on above: Result Comment: GFR Population mean for , Non- Americans Ages 20-29 = 116 mL/min/1.73 sq.m. Ages 30-39 = 107 mL/min/1.73 sq.m. Ages 40-49 = 99 mL/min/1.73 sq.m. Ages 50-59 = 93 mL/min/1.73 sq.m. Ages 60-69 = 85 mL/min/1.73 sq.m. Ages 70+ = 75 mL/min/1.73 sq.m. Chronic Kidney Disease: Less than 60 mL/min/1.73 square meters End Stage Renal Disease: Less than 15 mL/min/1.73 square meters Performed By: #### T SH, LIPID, FT4, A1C, CMP, GFR ####[address] [place], [place] [address] A1Con 09-19-2023 HbA1c (Bld) [Mass fraction] 5.7 % Normal 4.3-6.4 [facility] ([place]) Comment on above: Performed By: #### T SH, LIPID, FT4, A1C, CMP, GFR ####[address] [place], [place] [address] CMPon 09-19-2023 Albumin Level 3.3 G/dL Low 3.4-4.8 [facility] ([place]) Comment on above: Performed By: #### T SH, LIPID, FT4, A1C, CMP, GFR #### [address] [address] Albumin/Globulin [Mass ratio] 0.9 {ratio} Low 1.1-2.5 [facility] ([place]) Comment on above: Performed By: #### T SH, LIPID, FT4, A1C, CMP, GFR #### [address] [address] ALP [Catalytic activity/Vol] 79 U/L Normal 40-135 [facility] ([place]) Comment on above: Performed By: #### T SH, LIPID, FT4, A1C, CMP, GFR #### [address] [address] ALT [Catalytic activity/Vol] 17 U/L Normal 16-63 [facility] ([place]) Comment on above: Performed By: #### T SH, LIPID, FT4, A1C, CMP, GFR #### [address] [address] AST [Catalytic activity/Vol] 12 U/L Normal 10-40 [facility] ([place]) Comment on above: Performed By: #### T SH, LIPID, FT4, A1C, CMP, GFR #### [address] [address] Bili Total 0.5 mg/dL Normal 0.2-1.0 [facility] ([place]) Comment on above: Result Comment: Use of this assay is not recommended for patients undergoing treatment with eltrombopag due to the potential for falsely elevated results. Performed By: #### T SH, LIPID, FT4, A1C, CMP, GFR #### [address] [address] BUN/Creatinine Ratio 11 ratio Normal 7-27 [facility] ([place]) Comment on above: Performed By: #### T SH, LIPID, FT4, A1C, CMP, GFR #### [address] [address] Calcium [Mass/Vol] 9.2 mg/dL Normal 8.4-10.2 [facility] ([place]) Comment on above: Performed By: #### T SH, LIPID, FT4, A1C, CMP, GFR #### [address] [address] Chloride [Moles/Vol] 101 mmol/L Normal 98-107 [facility] ([place]) Comment on above: Performed By: #### T SH, LIPID, FT4, A1C, CMP, GFR #### [address] [address] CO2 [Moles/Vol] 20 mmol/L Low 23-31 [facility] ([place]) Comment on above: Performed By: #### T SH, LIPID, FT4, A1C, CMP, GFR #### [address] [address] Creatinine [Mass/Vol] 2.43 mg/dL High 0.70-1.30 [facility] ([place]) Comment on above: Performed By: #### T SH, LIPID, FT4, A1C, CMP, GFR #### [address] [address] Electrolyte Balance 12.0 mEq/L Normal 4.0-15.0 [facility] ([place]) Comment on above: Performed By: #### T SH, LIPID, FT4, A1C, CMP, GFR #### [address] [address] Globulin 3.7 G/dL Normal [facility] ([place]) Comment on above: Performed By: #### T SH, LIPID, FT4, A1C, CMP, GFR #### [address] [address] Glucose [Mass/Vol] 106 mg/dL Normal 83-110 [facility] ([place]) Comment on above: Performed By: #### T SH, LIPID, FT4, A1C, CMP, GFR #### [address] [address] Potassium [Moles/Vol] 5.1 mmol/L Normal 3.5-5.1 [facility] ([place]) Comment on above: Performed By: #### T SH, LIPID, FT4, A1C, CMP, GFR #### [address] [address] Sodium [Moles/Vol] 133 mmol/L Low 136-145 [facility] ([place]) Comment on above: Performed By: #### T SH, LIPID, FT4, A1C, CMP, GFR #### [address] [address] Total Protein 7.0 G/dL Normal 6.4-8.2 [facility] ([place]) Comment on above: Performed By: #### T SH, LIPID, FT4, A1C, CMP, GFR #### [address] [address] Urea nitrogen [Mass/Vol] 26 mg/dL High 7-18 [facility] ([place]) Comment on above: Performed By: #### T SH, LIPID, FT4, A1C, CMP, GFR #### [address] [address] FT4on 09-19-2023 Free T4 [Mass/Vol] 1.31 ng/dL Normal 0.76-1.46 [facility] ([place]) Comment on above: Performed By: #### T SH, LIPID, FT4, A1C, CMP, GFR #### [address] [address] LABORATORYOrdered By: SYSTEM SYSTEM on 09-19-2023 Albumin BCP dye [Mass/Vol] 3.3 G/dL Low 3.4 - 4.8 G/dL AO ADM SS Albumin/Globulin [Mass ratio] 0.9 {ratio} Low 1.1 - 2.5 ratio AO ADM SS ALP [Catalytic activity/Vol] 79 U/L Normal 40 - 135 U/L AO ADM SS ALT With P-5'-P [Catalytic activity/Vol] 17 U/L Normal 16 - 63 U/L AO ADM SS AST With P-5'-P [Catalytic activity/Vol] 12 U/L Normal 10 - 40 U/L AO ADM SS Bilirubin [Mass/Vol] 0.5 mg/dL Normal 0.2 - 1 .0 mg/dL AO ADM SS Comment on above: Interpretive Data: U se of this assay is not recommended for patients undergoing treatment with eltrombopag due to the potential for falsely elevated results. Calcium [Mass/Vol] 9.2 mg/dL Normal 8.4 - 10. 2 mg/dL AO ADM SS Chloride [Moles/Vol] 101 mmol/L Normal 98 - 10 7 mmol/L AO ADM SS CO2 [Moles/Vol] 20 mmol/L Low 23 - 31 mmol/L AO ADM SS Creatinine [Mass/Vol] 2.43 mg/dL High 0.70 - 1.30 mg/dL AO ADM SS Electrolyte Balance 12.0 mEq/L Normal 4.0 - 15 .0 mEq/L AO ADM SS Free T4 [Mass/Vol] 1.31 ng/dL Normal 0.76 - 1. 46 ng/dL AO ADM SS GFR/1.73 sq M.predicted among blacks MDRD (S/P/Bld) [Vol rate/Area] 32 ml/min/1.73sqm Invalid Interpretation Code AO Chemistry S Comment on above: Interpretive Data: GFR Population mean for , Non- Americans Ages 20-29 = 116 mL/min/1.73 sq.m. Ages 30-39 = 107 mL/min/1.73 sq.m. Ages 40-49 = 99 mL/min/1.73 sq.m. Ages 50-59 = 93 mL/min/1.73 sq.m. Ages 60-69 = 85 mL/min/1.73 sq.m. Ages 70+ = 75 mL/min/1.73 sq.m. Chronic Kidney Disease: Less than 60 mL/min/1.73 square meters End Stage Renal Disease: Less than 15 mL/min/1.73 square meters GFR/1.73 sq M.predicted among non-blacks MDRD (S/P/Bld) [Vol rate/Area] 26 ml/min/1.73sqm Invalid Interpretation Code AO Chemistry S Comment on above: Interpretive Data: GFR Population mean for , Non- Americans Ages 20-29 = 116 mL/min/1.73 sq.m. Ages 30-39 = 107 mL/min/1.73 sq.m. Ages 40-49 = 99 mL/min/1.73 sq.m. Ages 50-59 = 93 mL/min/1.73 sq.m. Ages 60-69 = 85 mL/min/1.73 sq.m. Ages 70+ = 75 mL/min/1.73 sq.m. Chronic Kidney Disease: Less than 60 mL/min/1.73 square meters End Stage Renal Disease: Less than 15 mL/min/1.73 square meters Globulin 3.7 G/dL Invalid Interpretation Code AO ADM SS Glucose [Mass/Vol] 106 mg/dL Normal 83 - 110 mg/dL AO ADM SS HbA1c (Bld) [Mass fraction] 5.7 % Normal 4.3 - 6.4 % AO ADM SS Potassium [Moles/Vol] 5.1 mmol/L Normal 3.5 - 5.1 mmol/L AO ADM SS Protein [Mass/Vol] 7.0 G/dL Normal 6.4 - 8.2 G/dL AO ADM SS Sodium [Moles/Vol] 133 mmol/L Low 136 - 145 mmol/L AO ADM SS TSH Qn 2.13 m[IU]/L Normal 0.36 - 3.74 mcIU/mL AO ADM SS Urea nitrogen [Mass/Vol] 26 mg/dL High 7 - 18 mg/dL AO ADM SS Urea nitrogen/Creatinine [Mass ratio] 11 ratio Normal 7 - 27 ratio AO ADM SS LABORATORYOrdered By: Bruna Lechuga on 09-19-2023 Cholesterol [Mass/Vol] 132 mg/dL Normal 0 - 200 mg/dL AO ADM SS Comment on above: Interpretive Data: C holesterol Reference Interval: Less than 200 Desirable 200-239 Borderline high risk 240 and above High risk Cholesterol in HDL [Mass/Vol] 64 mg/dL High 40 - 60 mg/dL AO ADM SS Cholesterol in LDL [Mass/Vol] 51 mg/dL Normal 0 - 130 mg/dL AO ADM SS Triglyceride [Mass/Vol] 83 mg/dL Normal 0 - 150 mg/dL AO ADM SS Comment on above: Interpretive Data: T riglyceride Reference Interval: Less than 150 Normal 150-199 Borderline high risk 200-499 High risk 500 or higher Very high risk LIPIDon 09-19-2023 Cholesterol [Mass/Vol] 132 mg/dL Normal 0-200 [facility] ([place]) Comment on above: Result Comment: Chol esterol Reference Interval: Less than 200 Desirable 200-239 Borderline high risk 240 and above High risk Performed By: #### T SH, LIPID, FT4, A1C, CMP, GFR ####[address] [place], [place] [address] Cholesterol in HDL [Mass/Vol] 64 mg/dL High 40-60 [facility] ([place]) Comment on above: Performed By: #### T SH, LIPID, FT4, A1C, CMP, GFR ####[address] [place], [place] [address] Cholesterol in LDL [Mass/Vol] 51 mg/dL Normal 0-130 [facility] ([place]) Comment on above: Performed By: #### T SH, LIPID, FT4, A1C, CMP, GFR ####[address] [place], [place] [address] Triglyceride [Mass/Vol] 83 mg/dL Normal 0-150 [facility] ([place]) Comment on above: Result Comment: Trig lyceride Reference Interval: Less than 150 Normal 150-199 Borderline high risk 200-499 High risk 500 or higher Very high risk Performed By: #### T SH, LIPID, FT4, A1C, CMP, GFR ####[address] [place], [place] [address] TSHon 09-19-2023 TSH Qn 2.13 m[IU]/L Normal 0.36-3.74 [facility] [place] Comment on above: Performed By: #### T SH, LIPID, FT4, A1C, CMP, GFR #### [address] [place], [place] [address] .GFRon 03-23-2023 GFR Non- 56 ml/min/1.73sqm Normal [facility] ([place]) Comment on above: Result Comment: GFR Population mean for , Non- Americans Ages 20-29 = 116 mL/min/1.73 sq.m. Ages 30-39 = 107 mL/min/1.73 sq.m. Ages 40-49 = 99 mL/min/1.73 sq.m. Ages 50-59 = 93 mL/min/1.73 sq.m. Ages 60-69 = 85 mL/min/1.73 sq.m. Ages 70+ = 75 mL/min/1.73 sq.m. Chronic Kidney Disease: Less than 60 mL/min/1.73 square meters End Stage Renal Disease: Less than 15 mL/min/1.73 square meters Performed By: #### L IPID, A1C, CMP, GFR #### [address] [address] GFR 68 ml/min/1.73sqm Normal [facility] ([place]) Comment on above: Result Comment: GFR Population mean for , Non- Americans Ages 20-29 = 116 mL/min/1.73 sq.m. Ages 30-39 = 107 mL/min/1.73 sq.m. Ages 40-49 = 99 mL/min/1.73 sq.m. Ages 50-59 = 93 mL/min/1.73 sq.m. Ages 60-69 = 85 mL/min/1.73 sq.m. Ages 70+ = 75 mL/min/1.73 sq.m. Chronic Kidney Disease: Less than 60 mL/min/1.73 square meters End Stage Renal Disease: Less than 15 mL/min/1.73 square meters Performed By: #### L IPID, A1C, CMP, GFR #### [address] [address] A1Con 03-23-2023 HbA1c (Bld) [Mass fraction] 5.9 % Normal 4.3-6.4 [facility] ([place]) Comment on above: Performed By: #### L IPID, A1C, CMP, GFR #### [address] [address] CMPon 03-23-2023 Albumin Level 3.2 G/dL Low 3.4-4.8 [facility] ([place]) Comment on above: Performed By: #### L IPID, A1C, CMP, GFR #### [address] [address] Albumin/Globulin [Mass ratio] 0.8 {ratio} Low 1.1-2.5 [facility] ([place]) Comment on above: Performed By: #### L IPID, A1C, CMP, GFR #### [address] [address] ALP [Catalytic activity/Vol] 92 U/L Normal 40-135 [facility] ([place]) Comment on above: Performed By: #### L IPID, A1C, CMP, GFR #### [address] [address] ALT [Catalytic activity/Vol] 15 U/L Low 16-63 [facility] ([place]) Comment on above: Performed By: #### L IPID, A1C, CMP, GFR #### [address] [address] AST [Catalytic activity/Vol] 12 U/L Normal 10-40 [facility] ([place]) Comment on above: Performed By: #### L IPID, A1C, CMP, GFR #### [address] [address] Bili Total 0.4 mg/dL Normal 0.2-1.0 [facility] ([place]) Comment on above: Result Comment: Use of this assay is not recommended for patients undergoing treatment with eltrombopag due to the potential for falsely elevated results. Performed By: #### L IPID, A1C, CMP, GFR #### [address] [address] BUN/Creatinine Ratio 10 ratio Normal 7-27 [facility] ([place]) Comment on above: Performed By: #### L IPID, A1C, CMP, GFR #### [address] [address] Calcium [Mass/Vol] 8.9 mg/dL Normal 8.4-10.2 [facility] ([place]) Comment on above: Performed By: #### L IPID, A1C, CMP, GFR #### [address] [address] Chloride [Moles/Vol] 101 mmol/L Normal 98-107 [facility] ([place]) Comment on above: Performed By: #### L IPID, A1C, CMP, GFR #### [address] [address] CO2 [Moles/Vol] 24 mmol/L Normal 23-31 [facility] ([place]) Comment on above: Performed By: #### L IPID, A1C, CMP, GFR #### [address] [address] Creatinine [Mass/Vol] 1.25 mg/dL Normal 0.70-1.30 [facility] ([place]) Comment on above: Performed By: #### L IPID, A1C, CMP, GFR #### [address] [address] Electrolyte Balance 10.0 mEq/L Normal 4.0-15.0 [facility] ([place]) Comment on above: Performed By: #### L IPID, A1C, CMP, GFR #### [address] [address] Globulin 3.8 G/dL Normal [facility] ([place]) Comment on above: Performed By: #### L IPID, A1C, CMP, GFR #### [address] [address] Glucose [Mass/Vol] 138 mg/dL High 83-110 [facility] ([place]) Comment on above: Performed By: #### L IPID, A1C, CMP, GFR #### [address] [address] Potassium [Moles/Vol] 4.4 mmol/L Normal 3.5-5.1 [facility] ([place]) Comment on above: Performed By: #### L IPID, A1C, CMP, GFR #### [address] [address] Sodium [Moles/Vol] 135 mmol/L Low 136-145 [facility] ([place]) Comment on above: Performed By: #### L IPID, A1C, CMP, GFR #### [address] [address] Total Protein 7.0 G/dL Normal 6.4-8.2 [facility] ([place]) Comment on above: Performed By: #### L IPID, A1C, CMP, GFR #### [address] [place], [place] [address] Urea nitrogen [Mass/Vol] 13 mg/dL Normal 7-18 [facility] ([place]) Comment on above: Performed By: #### L IPID, A1C, CMP, GFR #### [address] [place], [place] [address] LABORATORYOrdered By: SYSTEM SYSTEM on 03-23-2023 Albumin BCP dye [Mass/Vol] 3.2 G/dL Invalid Interpretation Code 3.4 - 4.8 G/dL AO ADM SS Albumin/Globulin [Mass ratio] 0.8 {ratio} Invalid Interpretation Code 1.1 - 2.5 ratio AO ADM SS ALP [Catalytic activity/Vol] 92 U/L Invalid Interpretation Code 40 - 135 U/L AO ADM SS ALT With P-5'-P [Catalytic activity/Vol] 15 U/L Invalid Interpretation Code 16 - 63 U/L AO ADM SS AST With P-5'-P [Catalytic activity/Vol] 12 U/L Invalid Interpretation Code 10 - 40 U/L AO ADM SS Bilirubin [Mass/Vol] 0.4 mg/dL Invalid Interpretation Code 0.2 - 1.0 mg/dL AO ADM SS Comment on above: Interpretive Data: U se of this assay is not recommended for patients undergoing treatment with eltrombopag due to the potential for falsely elevated results. Calcium [Mass/Vol] 8.9 mg/dL Invalid Interpretation Code 8.4 - 10.2 mg/dL AO ADM SS Chloride [Moles/Vol] 101 mmol/L Invalid Interpretation Code 98 - 107 mmol/L AO ADM SS CO2 [Moles/Vol] 24 mmol/L Invalid Interpretation Code 23 - 31 mmol/L AO ADM SS Creatinine [Mass/Vol] 1.25 mg/dL Invalid Interpretation Code 0.70 - 1.30 mg/dL AO ADM SS Electrolyte Balance 10.0 mEq/L Invalid Interpretation Code 4.0 - 15.0 mEq/L AO ADM SS GFR/1.73 sq M.predicted among blacks MDRD (S/P/Bld) [Vol rate/Area] 68 ml/min/1.73sqm Invalid Interpretation Code AO Chemistry S Comment on above: Interpretive Data: GFR Population mean for , Non- Americans Ages 20-29 = 116 mL/min/1.73 sq.m. Ages 30-39 = 107 mL/min/1.73 sq.m. Ages 40-49 = 99 mL/min/1.73 sq.m. Ages 50-59 = 93 mL/min/1.73 sq.m. Ages 60-69 = 85 mL/min/1.73 sq.m. Ages 70+ = 75 mL/min/1.73 sq.m. Chronic Kidney Disease: Less than 60 mL/min/1.73 square meters End Stage Renal Disease: Less than 15 mL/min/1.73 square meters GFR/1.73 sq M.predicted among non-blacks MDRD (S/P/Bld) [Vol rate/Area] 56 ml/min/1.73sqm Invalid Interpretation Code AO Chemistry S Comment on above: Interpretive Data: GFR Population mean for , Non- Americans Ages 20-29 = 116 mL/min/1.73 sq.m. Ages 30-39 = 107 mL/min/1.73 sq.m. Ages 40-49 = 99 mL/min/1.73 sq.m. Ages 50-59 = 93 mL/min/1.73 sq.m. Ages 60-69 = 85 mL/min/1.73 sq.m. Ages 70+ = 75 mL/min/1.73 sq.m. Chronic Kidney Disease: Less than 60 mL/min/1.73 square meters End Stage Renal Disease: Less than 15 mL/min/1.73 square meters Globulin 3.8 G/dL Invalid Interpretation Code AO ADM SS Glucose [Mass/Vol] 138 mg/dL Invalid Interpretation Code 83 - 110 mg/dL AO ADM SS HbA1c (Bld) [Mass fraction] 5.9 % Invalid Interpretation Code 4.3 - 6.4 % AO ADM SS Potassium [Moles/Vol] 4.4 mmol/L Invalid Interpretation Code 3.5 - 5.1 mmol/L AO ADM SS Protein [Mass/Vol] 7.0 G/dL Invalid Interpretation Code 6.4 - 8.2 G/dL AO ADM SS Sodium [Moles/Vol] 135 mmol/L Invalid Interpretation Code 136 - 145 mmol/L AO ADM SS Urea nitrogen [Mass/Vol] 13 mg/dL Invalid Interpretation Code 7 - 18 mg/dL AO ADM SS Urea nitrogen/Creatinine [Mass ratio] 10 ratio Invalid Interpretation Code 7 - 27 ratio AO ADM SS LABORATORYOrdered By: Fide Mathur on 03-23-2023 Cholesterol [Mass/Vol] 159 mg/dL Invalid Interpretation Code 0 - 200 mg/dL AO ADM SS Comment on above: Interpretive Data: C holesterol Reference Interval: Less than 200 Desirable 200-239 Borderline high risk 240 and above High risk Cholesterol in HDL [Mass/Vol] 64 mg/dL Invalid Interpretation Code 40 - 60 mg/dL AO ADM SS Cholesterol in LDL [Mass/Vol] 72 mg/dL Invalid Interpretation Code 0 - 130 mg/dL AO ADM SS Triglyceride [Mass/Vol] 115 mg/dL Invalid Interpretation Code 0 - 150 mg/dL AO ADM SS Comment on above: Interpretive Data: T riglyceride Reference Interval: Less than 150 Normal 150-199 Borderline high risk 200-499 High risk 500 or higher Very high risk LIPIDon 03-23-2023 Cholesterol [Mass/Vol] 159 mg/dL Normal 0-200 [facility] ([place]) Comment on above: Result Comment: Chol esterol Reference Interval: Less than 200 Desirable 200-239 Borderline high risk 240 and above High risk Performed By: #### L IPID, A1C, CMP, GFR #### [address] [address] Cholesterol in HDL [Mass/Vol] 64 mg/dL High 40-60 [facility] ([place]) Comment on above: Performed By: #### L IPID, A1C, CMP, GFR #### [address] [address] Cholesterol in LDL [Mass/Vol] 72 mg/dL Normal 0-130 [facility] ([place]) Comment on above: Performed By: #### L IPID, A1C, CMP, GFR #### [address] [address] Triglyceride [Mass/Vol] 115 mg/dL Normal 0-150 [facility] ([place]) Comment on above: Result Comment: Trig lyceride Reference Interval: Less than 150 Normal 150-199 Borderline high risk 200-499 High risk 500 or higher Very high risk Performed By: #### L IPID, A1C, CMP, GFR #### [id number] [place], [place] [address] CT ABDOMEN/PELVIS W/CONTRAST on 02-22-2023 CT ABDOMEN/PELVIS W/CONTRAST ORIGINAL EXAMINATION: CT OF THE ABDOMEN AND PELVIS WITH [id number]/10/2023 10:48 am TECHNIQUE: CT of the abdomen and pelvis was performed with the administration of intravenous contrast. Multiplanar reformatted images are provided for review. Automated exposure control, iterative reconstruction, and/or weight based adjustment of the mA/kV was utilized to reduce the radiation dose to as low as reasonably achievable. COMPARISON: CT abdomen and pelvis 02/21/2017. HISTORY: ORDERING SYSTEM PROVIDED HISTORY: Reason for Exam: Abdominal pain, weight loss FINDINGS: Lung bases are clear. There are no pleural or pericardial effusion. There are coronary artery calcifications. Gallbladder is surgically absent. The liver and spleen and adrenal glands and pancreas are normal. There is no renal calculus disease. There are multiple bilateral simple renal cortical cysts. Kidneys enhance normally. There are small bilateral renal cysts. Kidneys enhance normally. There is no hydronephrosis or renal calculus disease. Caliber of the abdominal aorta is normal. There is diffuse circumferential wall thickening of the ascending colon without colonic wall pneumatosis or pericolonic air or phlegmon or abscess. Appendix is normal. There is sigmoid diverticulosis with no evidence of diverticulitis. Small bowel is of normal caliber. There are no enlarged abdominal or pelvic lymph nodes or ascites or free intraperitoneal air. Once again there is considerable prostatomegaly, once again with heterogeneous attenuation. Urinary bladder is incompletely distended. There are no urinary bladder calculi or gross diverticuli. Seminal vesicles are normal. There are advanced degenerative disc changes at L5-S1. There is no acute bony abnormality. IMPRESSION: 1. Diffuse colitis involving the ascending colon without evidence of perforation, phlegmon or abscess. No evidence of bowel obstruction. 2. Sigmoid diverticulosis without diverticulitis. 3. Stable heterogeneous prostatomegaly. Interpreted by: Carlin Read Preliminary Report By: Carlin Read Electronically signed By Carlin Read Dictated Date: 02/22/2023 10:55:19 AM Prelim Date: 02/22/2023 11:09:54 AM Sign Date: 02/22/2023 11:09:54 AM Ordering Provider: JIM MICHELE [facility] ([place]) .Auto Diffon 02-03-2023 Basophil, Absolute 0.1 10 3/mcL Normal 0.0-0.2 [facility] ([place]) Comment on above: Performed By: #### A DIFF, MDW, GFR, CRP, ANEU, ESR, BMP, CBC ####[address] [place], [place] [address] Basophils/100 WBC (Bld) 0.4 % Normal 0.0-2.5 [facility] ([place]) Comment on above: Performed By: #### A DIFF, MDW, GFR, CRP, ANEU, ESR, BMP, CBC ####[address] [place], [place] [address] Eosinophil, Absolute 0.4 10 3/mcL Normal 0.0-0.4 [facility] ([place]) Comment on above: Performed By: #### A DIFF, MDW, GFR, CRP, ANEU, ESR, BMP, CBC ####[address] [place], [place] [address] Eosinophils/100 WBC (Bld) 3.3 % Normal 0.0-7.0 [facility] ([place]) Comment on above: Performed By: #### A DIFF, MDW, GFR, CRP, ANEU, ESR, BMP, CBC ####[address] [place], [place] [address] Lymphocyte, Absolute 0.8 10 3/mcL Normal 0.8-3.9 [facility] ([place]) Comment on above: Performed By: #### A DIFF, MDW, GFR, CRP, ANEU, ESR, BMP, CBC ####[address] [place], [place] [address] Lymphocytes/100 WBC (Bld) 7.1 % Low 10.0-50.0 [facility] ([place]) Comment on above: Performed By: #### A DIFF, MDW, GFR, CRP, ANEU, ESR, BMP, CBC ####[address] [place], [place] [address] Monocyte, Absolute 1.2 10 3/mcL High 0.2-1.0 [facility] ([place]) Comment on above: Performed By: #### A DIFF, MDW, GFR, CRP, ANEU, ESR, BMP, CBC ####[address] [place], [place] [address] Monocytes/100 WBC (Bld) 10.6 % Normal 1.7-13.0 [facility] ([place]) Comment on above: Performed By: #### A DIFF, MDW, GFR, CRP, ANEU, ESR, BMP, CBC ####[address] [place], [place] [address] Neutrophils/100 WBC (Bld) 78.6 % Normal 37.0-80.0 [facility] ([place]) Comment on above: Performed By: #### A DIFF, MDW, GFR, CRP, ANEU, ESR, BMP, CBC ####[address] [place], [place] [address] .GFRon 02-03-2023 GFR 60 ml/min/1.73sqm Normal [facility] ([place]) Comment on above: Result Comment: GFR Population mean for , Non- Americans Ages 20-29 = 116 mL/min/1.73 sq.m. Ages 30-39 = 107 mL/min/1.73 sq.m. Ages 40-49 = 99 mL/min/1.73 sq.m. Ages 50-59 = 93 mL/min/1.73 sq.m. Ages 60-69 = 85 mL/min/1.73 sq.m. Ages 70+ = 75 mL/min/1.73 sq.m. Chronic Kidney Disease: Less than 60 mL/min/1.73 square meters End Stage Renal Disease: Less than 15 mL/min/1.73 square meters Performed By: #### L IPID, A1C, CMP, GFR #### [id number] [place], [place] [address] GFR Non- 50 ml/min/1.73sqm Normal [facility] ([place]) Comment on above: Result Comment: GFR Population mean for , Non- Americans Ages 20-29 = 116 mL/min/1.73 sq.m. Ages 30-39 = 107 mL/min/1.73 sq.m. Ages 40-49 = 99 mL/min/1.73 sq.m. Ages 50-59 = 93 mL/min/1.73 sq.m. Ages 60-69 = 85 mL/min/1.73 sq.m. Ages 70+ = 75 mL/min/1.73 sq.m. Chronic Kidney Disease: Less than 60 mL/min/1.73 square meters End Stage Renal Disease: Less than 15 mL/min/1.73 square meters Performed By: #### L IPID, A1C, CMP, GFR #### [address] [address] .MDWon 02-03-2023 Monocyte Distribution Width 19.60 Normal 0.00-20.00 [facility] ([place]) Comment on above: Result Comment: For ED adult patients suspected of sepsis, MDW<=20.0 does not rule out sepsis or risk of sepsis Performed By: #### L IPID, A1C, CMP, GFR #### [address] [address] .NEUABSon 02-03-2023 Neutrophil, Absolute 9.0 10 3/mcL High 2.9-6.2 [facility] ([place]) Comment on above: Performed By: #### A DIFF, MDW, GFR, CRP, ANEU, ESR, BMP, CBC ####[address] [place], [place] [address] BMPon 02-03-2023 BUN/Creatinine Ratio 7 ratio Normal 7-27 [facility] ([place]) Comment on above: Performed By: #### L IPID, A1C, CMP, GFR #### [address] [address] Calcium [Mass/Vol] 8.4 mg/dL Normal 8.4-10.2 [facility] ([place]) Comment on above: Performed By: #### L IPID, A1C, CMP, GFR #### [address] [address] Chloride [Moles/Vol] 98 mmol/L Normal 98-107 [facility] ([place]) Comment on above: Performed By: #### L IPID, A1C, CMP, GFR #### [address] [address] CO2 [Moles/Vol] 23 mmol/L Normal 23-31 [facility] ([place]) Comment on above: Performed By: #### L IPID, A1C, CMP, GFR #### [address] [address] Creatinine [Mass/Vol] 1.39 mg/dL High 0.70-1.30 [facility] ([place]) Comment on above: Performed By: #### L IPID, A1C, CMP, GFR #### [address] [address] Electrolyte Balance 11.0 mEq/L Normal 4.0-15.0 [facility] ([place]) Comment on above: Performed By: #### L IPID, A1C, CMP, GFR #### [address] [address] Glucose [Mass/Vol] 140 mg/dL High 83-110 [facility] ([place]) Comment on above: Performed By: #### L IPID, A1C, CMP, GFR #### [address] [address] Potassium [Moles/Vol] 3.8 mmol/L Normal 3.5-5.1 [facility] ([place]) Comment on above: Performed By: #### L IPID, A1C, CMP, GFR #### [address] [address] Sodium [Moles/Vol] 132 mmol/L Low 136-145 [facility] ([place]) Comment on above: Performed By: #### L IPID, A1C, CMP, GFR #### [address] [address] Urea nitrogen [Mass/Vol] 10 mg/dL Normal 7-18 [facility] ([place]) Comment on above: Performed By: #### L IPID, A1C, CMP, GFR #### [address] [address] CBCon 02-03-2023 Erythrocyte distribution width (RBC) [Ratio] 13.7 % Normal 11.5-14.5 [facility] ([place]) Comment on above: Performed By: #### A DIFF, MDW, GFR, CRP, ANEU, ESR, BMP, CBC ####[address] [place], [place] [address] Hematocrit (Bld) [Volume fraction] 36.2 % Low 42.0-52.0 [facility] ([place]) Comment on above: Performed By: #### A DIFF, MDW, GFR, CRP, ANEU, ESR, BMP, CBC ####[address] [place], [place] [address] Hgb 12.4 G/dL Low 14.0-18.0 [facility] ([place]) Comment on above: Performed By: #### A DIFF, MDW, GFR, CRP, ANEU, ESR, BMP, CBC ####[address] [place], [place] [address] MCH (RBC) [Entitic mass] 31.6 pg High 27.0-31.2 [facility] ([place]) Comment on above: Performed By: #### A DIFF, MDW, GFR, CRP, ANEU, ESR, BMP, CBC ####[address] [place], [place] [address] MCHC 34.1 G/dL Normal 31.8-35.4 [facility] ([place]) Comment on above: Performed By: #### A DIFF, MDW, GFR, CRP, ANEU, ESR, BMP, CBC ####[address] [place], [place] [address] MCV (RBC) [Entitic vol] 92.7 fL Normal 80.0-94.0 [facility] ([place]) Comment on above: Performed By: #### A DIFF, MDW, GFR, CRP, ANEU, ESR, BMP, CBC ####[address] [place], [place] [address] Platelet 421 10 3/mcL High 130-400 [facility] ([place] Comment on above: Performed By: #### A DIFF, MDW, GFR, CRP, ANEU, ESR, BMP, CBC ####[address] [place], [place] [address] Platelet mean volume (Bld) [Entitic vol] 7.3 fL Low 7.4-10.4 [facility] [place] Comment on above: Performed By: #### A DIFF, MDW, GFR, CRP, ANEU, ESR, BMP, CBC ####[address] [place], [place] [address] RBC 3.91 10 6/mcL Low 4.04-6.13 [facility] ([place]) Comment on above: Performed By: #### A DIFF, MDW, GFR, CRP, ANEU, ESR, BMP, CBC ####[address] [place], [place] [address] WBC 11.5 10 3/mcL High 4.6-10.8 [facility] ([place]) Comment on above: Performed By: #### A DIFF, MDW, GFR, CRP, ANEU, ESR, BMP, CBC ####[address] [place], [place] [address] CRPon 02-03-2023 C-Reactive Protein 11.2 mg/dL High 0.0-0.3 [facility] ([place]) Comment on above: Performed By: #### L IPID, A1C, CMP, GFR #### [address] [place], [place] [address] ESRon 02-03-2023 Erythrocyte Sed Rate 54 mm/hr High 0-20 [facility] ([place]) Comment on above: Performed By: #### L IPID, A1C, CMP, GFR #### [id number] [place], [place] [address] LABORATORYOrdered By: SYSTEM SYSTEM on 02-03-2023 Basophil, Absolute 0.1 103/mcL Invalid Interpretation Code 0.0 - 0.2 10^3/mcL AO Workflow SS Basophils/100 WBC (Bld) 0.4 % Invalid Interpretation Code 0.0 - 2.5 % AO Workflow SS Calcium [Mass/Vol] 8.4 mg/dL Invalid Interpretation Code 8.4 - 10.2 mg/dL AO ADM SS Chloride [Moles/Vol] 98 mmol/L Invalid Interpretation Code 98 - 107 mmol/L AO ADM SS CO2 [Moles/Vol] 23 mmol/L Invalid Interpretation Code 23 - 31 mmol/L AO ADM SS Creatinine [Mass/Vol] 1.39 mg/dL Invalid Interpretation Code 0.70 - 1.30 mg/dL AO ADM SS CRP [Mass/Vol] 11.2 mg/dL Invalid Interpretation Code 0.0 - 0.3 mg/dL AO ADM SS Electrolyte Balance 11.0 mEq/L Invalid Interpretation Code 4.0 - 15.0 mEq/L AO ADM SS Eosinophil, Absolute 0.4 103/mcL Invalid Interpretation Code 0.0 - 0.4 10^3/mcL AO Workflow SS Eosinophils/100 WBC (Bld) 3.3 % Invalid Interpretation Code 0.0 - 7.0 % AO Workflow SS Erythrocyte distribution width (RBC) [Ratio] 13.7 % Invalid Interpretation Code 11.5 - 14.5 % AO Workflow SS GFR/1.73 sq M.predicted among blacks MDRD (S/P/Bld) [Vol rate/Area] 60 ml/min/1.73sqm Invalid Interpretation Code AO Chemistry S Comment on above: Interpretive Data: GFR Population mean for , Non- Americans Ages 20-29 = 116 mL/min/1.73 sq.m. Ages 30-39 = 107 mL/min/1.73 sq.m. Ages 40-49 = 99 mL/min/1.73 sq.m. Ages 50-59 = 93 mL/min/1.73 sq.m. Ages 60-69 = 85 mL/min/1.73 sq.m. Ages 70+ = 75 mL/min/1.73 sq.m. Chronic Kidney Disease: Less than 60 mL/min/1.73 square meters End Stage Renal Disease: Less than 15 mL/min/1.73 square meters GFR/1.73 sq M.predicted among non-blacks MDRD (S/P/Bld) [Vol rate/Area] 50 ml/min/1.73sqm Invalid Interpretation Code AO Chemistry S Comment on above: Interpretive Data: GFR Population mean for , Non- Americans Ages 20-29 = 116 mL/min/1.73 sq.m. Ages 30-39 = 107 mL/min/1.73 sq.m. Ages 40-49 = 99 mL/min/1.73 sq.m. Ages 50-59 = 93 mL/min/1.73 sq.m. Ages 60-69 = 85 mL/min/1.73 sq.m. Ages 70+ = 75 mL/min/1.73 sq.m. Chronic Kidney Disease: Less than 60 mL/min/1.73 square meters End Stage Renal Disease: Less than 15 mL/min/1.73 square meters Glucose [Mass/Vol] 140 mg/dL Invalid Interpretation Code 83 - 110 mg/dL AO ADM SS Hematocrit (Bld) [Volume fraction] 36.2 % Invalid Interpretation Code 42.0 - 52.0 % AO Workflow SS Hemoglobin (Bld) [Mass/Vol] 12.4 G/dL Invalid Interpretation Code 14.0 - 18.0 G/dL AO Workflow SS Lymphocyte, Absolute 0.8 103/mcL Invalid Interpretation Code 0.8 - 3.9 10^3/mcL AO Workflow SS Lymphocytes/100 WBC (Bld) 7.1 % Invalid Interpretation Code 10.0 - 50.0 % AO Workflow SS MCH (RBC) [Entitic mass] 31.6 pg Invalid Interpretation Code 27.0 - 31.2 pg AO Workflow SS MCHC 34.1 G/dL Invalid Interpretation Code 31.8 - 35.4 G/dL AO Workflow SS MCV (RBC) [Entitic vol] 92.7 fL Invalid Interpretation Code 80.0 - 94.0 fL AO Workflow SS Monocyte distribution width Auto (Bld) [Entitic vol] 19.60 1 Invalid Interpretation Code 0.00 - 20.00 AO Workflow SS Comment on above: Result Comment: For ED adult patients suspected of sepsis, MDW<=20.0 does not rule out sepsis or risk of sepsis Monocyte, Absolute 1.2 103/mcL Invalid Interpretation Code 0.2 - 1.0 10^3/mcL AO Workflow SS Monocytes/100 WBC (Bld) 10.6 % Invalid Interpretation Code 1.7 - 13.0 % AO Workflow SS Neutrophil, Absolute 9.0 103/mcL Invalid Interpretation Code 2.9 - 6.2 10^3/mcL AO Workflow SS Neutrophils/100 WBC (Bld) 78.6 % Invalid Interpretation Code 37.0 - 80.0 % AO Workflow SS Platelet mean volume (Bld) [Entitic vol] 7.3 fL Invalid Interpretation Code 7.4 - 10.4 fL AO Workflow SS Platelets (Bld) [#/Vol] 421 103/mcL Invalid Interpretation Code 130 - 400 10^3/mcL AO Workflow SS Potassium [Moles/Vol] 3.8 mmol/L Invalid Interpretation Code 3.5 - 5.1 mmol/L AO ADM SS RBC (Bld) [#/Vol] 3.91 106/mcL Invalid Interpretation Code 4.04 - 6.13 10^6/mcL AO Workflow SS Sodium [Moles/Vol] 132 mmol/L Invalid Interpretation Code 136 - 145 mmol/L AO ADM SS Urea nitrogen [Mass/Vol] 10 mg/dL Invalid Interpretation Code 7 - 18 mg/dL AO ADM SS Urea nitrogen/Creatinine [Mass ratio] 7 ratio Invalid Interpretation Code 7 - 27 ratio AO ADM SS Uric Acid Lvl 5.0 mg/dL Invalid Interpretation Code 3.5 - 7.2 mg/dL AO ADM SS WBC (Bld) [#/Vol] 11.5 103/mcL Invalid Interpretation Code 4.6 - 10.8 10^3/mcL AO Workflow SS LABORATORYOrdered By: Nory Castaneda on 02-03-2023 ESR Photometric method (Bld) [Velocity] 54 mm/hr Invalid Interpretation Code 0 - 20 mm/hr AO Man Heme SS URICon 02-03-2023 Uric Acid Lvl 5.0 mg/dL Normal 3.5-7.2 [facility] ([place]) Comment on above: Performed By: #### U MARY #### [address] [address] XR HAND AND WRIST 6 VIEWS LE FTon 02-03-2023 XR HAND AND WRIST 6 VIEWS LEFT ORIGINAL EXAMINATION: 3 x-ray views of the left hand and 3 x-ray views of the left wrist 02/03/2023 9:33 am COMPARISON: None. HISTORY: ORDERING SYSTEM PROVIDED HISTORY: Reason for Exam: pain, swelling FINDINGS: The study is compromised by patient positioning. Vascular calcification is evident. There is some dorsal soft tissue swelling at the hand, with no evidence for fracture or dislocation. Minor scattered degenerative changes are present. No additional contributory finding. IMPRESSION: Dorsal soft tissue swelling. Degenerative change. No acute fracture seen. Interpreted by: Brent Chowdhury MD Preliminary Report By: Brent Chowdhury MD Electronically signed By Brent Chowdhury MD Dictated Date: 02/03/2023 9:42:53 AM Prelim Date: 02/03/2023 9:44:00 AM Sign Date: 02/03/2023 9:44:00 AM Ordering Provider: CARINE Nunes [facility] ([place]) LABORATORYOrdered By: SYSTEM SYSTEM on 09-22-2022 Albumin BCP dye [Mass/Vol] 3.3 G/dL Invalid Interpretation Code 3.4 - 4.8 G/dL AO ADM SS Albumin/Globulin [Mass ratio] 1.0 {ratio} Invalid Interpretation Code 1.1 - 2.5 ratio AO ADM SS ALP [Catalytic activity/Vol] 91 U/L Invalid Interpretation Code 40 - 135 U/L AO ADM SS ALT With P-5'-P [Catalytic activity/Vol] 16 U/L Invalid Interpretation Code 16 - 63 U/L AO ADM SS AST With P-5'-P [Catalytic activity/Vol] 18 U/L Invalid Interpretation Code 10 - 40 U/L AO ADM SS Bilirubin [Mass/Vol] 0.6 mg/dL Invalid Interpretation Code 0.2 - 1.0 mg/dL AO ADM SS Calcium [Mass/Vol] 9.5 mg/dL Invalid Interpretation Code 8.4 - 10.2 mg/dL AO ADM SS Chloride [Moles/Vol] 96 mmol/L Invalid Interpretation Code 98 - 107 mmol/L AO ADM SS CO2 [Moles/Vol] 29 mmol/L Invalid Interpretation Code 23 - 31 mmol/L AO ADM SS Creatinine [Mass/Vol] 1.13 mg/dL Invalid Interpretation Code 0.70 - 1.30 mg/dL AO ADM SS Electrolyte Balance 7.0 mEq/L Invalid Interpretation Code 4.0 - 15.0 mEq/L AO ADM SS Free T4 [Mass/Vol] 1.52 ng/dL Invalid Interpretation Code 0.76 - 1.46 ng/dL AO ADM SS GFR/1.73 sq M.predicted among blacks MDRD (S/P/Bld) [Vol rate/Area] 76 ml/min/1.73sqm Invalid Interpretation Code AO Chemistry S GFR/1.73 sq M.predicted among non-blacks MDRD (S/P/Bld) [Vol rate/Area] 63 ml/min/1.73sqm Invalid Interpretation Code AO Chemistry S Globulin 3.4 G/dL Invalid Interpretation Code AO ADM SS Glucose [Mass/Vol] 158 mg/dL Invalid Interpretation Code 83 - 110 mg/dL AO ADM SS HbA1c (Bld) [Mass fraction] 6.6 % Invalid Interpretation Code 4.3 - 6.4 % AO ADM SS Potassium [Moles/Vol] 4.7 mmol/L Invalid Interpretation Code 3.5 - 5.1 mmol/L AO ADM SS Protein [Mass/Vol] 6.7 G/dL Invalid Interpretation Code 6.4 - 8.2 G/dL AO ADM SS Sodium [Moles/Vol] 132 mmol/L Invalid Interpretation Code 136 - 145 mmol/L AO ADM SS TSH Qn 13.88 m[IU]/L Invalid Interpretation Code 0.36 - 3.74 mcIU/mL AO ADM SS Urea nitrogen [Mass/Vol] 10 mg/dL Invalid Interpretation Code 7 - 18 mg/dL AO ADM SS Urea nitrogen/Creatinine [Mass ratio] 9 ratio Invalid Interpretation Code 7 - 27 ratio AO ADM SS LABORATORYOrdered By: Delma Cuellar on 09-22-2022 Cholesterol [Mass/Vol] 181 mg/dL Invalid Interpretation Code 0 - 200 mg/dL AO ADM SS Cholesterol in HDL [Mass/Vol] 61 mg/dL Invalid Interpretation Code 40 - 60 mg/dL AO ADM SS Cholesterol in LDL [Mass/Vol] 97 mg/dL Invalid Interpretation Code 0 - 130 mg/dL AO ADM SS Triglyceride [Mass/Vol] 113 mg/dL Invalid Interpretation Code 0 - 150 mg/dL AO ADM SS No Panel Informationon 07-29 Culture Wound Aerobe Few Normal skin hank present. Sensitivity testing not indicated. [facility] No organisms seen. [facility] LABORATORYOrdered By: SYSTEM SYSTEM on 07-22-2022 Albumin BCP dye [Mass/Vol] 3.7 G/dL Invalid Interpretation Code 3.4 - 4.8 G/dL AO ADM SS Albumin/Globulin [Mass ratio] 1.1 {ratio} Invalid Interpretation Code 1.1 - 2.5 ratio AO ADM SS ALP [Catalytic activity/Vol] 87 U/L Invalid Interpretation Code 40 - 135 U/L AO ADM SS ALT With P-5'-P [Catalytic activity/Vol] 29 U/L Invalid Interpretation Code 16 - 63 U/L AO ADM SS AST With P-5'-P [Catalytic activity/Vol] 21 U/L Invalid Interpretation Code 10 - 40 U/L AO ADM SS Bilirubin [Mass/Vol] 0.4 mg/dL Invalid Interpretation Code 0.2 - 1.0 mg/dL AO ADM SS Calcium [Mass/Vol] 9.4 mg/dL Invalid Interpretation Code 8.4 - 10.2 mg/dL AO ADM SS Chloride [Moles/Vol] 92 mmol/L Invalid Interpretation Code 98 - 107 mmol/L AO ADM SS CO2 [Moles/Vol] 28 mmol/L Invalid Interpretation Code 23 - 31 mmol/L AO ADM SS Creatinine [Mass/Vol] 1.21 mg/dL Invalid Interpretation Code 0.70 - 1.30 mg/dL AO ADM SS Electrolyte Balance 7.0 mEq/L Invalid Interpretation Code 4.0 - 15.0 mEq/L AO ADM SS Free T3 [Mass/Vol] 1.54 pg/mL Invalid Interpretation Code 2.30 - 4.00 pg/mL AO ADM SS Free T4 [Mass/Vol] 1.33 ng/dL Invalid Interpretation Code 0.76 - 1.46 ng/dL AO ADM SS GFR 71 ml/min/1.73sqm Invalid Interpretation Code AO Chemistry S GFR Non- 58 ml/min/1.73sqm Invalid Interpretation Code AO Chemistry S Globulin 3.3 G/dL Invalid Interpretation Code AO ADM SS Glucose [Mass/Vol] 133 mg/dL Invalid Interpretation Code 83 - 110 mg/dL AO ADM SS Potassium [Moles/Vol] 4.3 mmol/L Invalid Interpretation Code 3.5 - 5.1 mmol/L AO ADM SS Protein [Mass/Vol] 7.0 G/dL Invalid Interpretation Code 6.4 - 8.2 G/dL AO ADM SS Sodium [Moles/Vol] 127 mmol/L Invalid Interpretation Code 136 - 145 mmol/L AO ADM SS TSH Qn 12.22 m[IU]/L Invalid Interpretation Code 0.36 - 3.74 mcIU/mL AO ADM SS Urea nitrogen [Mass/Vol] 17 mg/dL Invalid Interpretation Code 7 - 18 mg/dL AO ADM SS Urea nitrogen/Creatinine [Mass ratio] 14 ratio Invalid Interpretation Code 7 - 27 ratio AO ADM SS LABORATORYOrdered By: SYSTEM SYSTEM on 07-08-2022 Albumin BCP dye [Mass/Vol] 3.8 G/dL Invalid Interpretation Code 3.4 - 4.8 G/dL AO ADM SS Albumin/Globulin [Mass ratio] 1.2 {ratio} Invalid Interpretation Code 1.1 - 2.5 ratio AO ADM SS ALP [Catalytic activity/Vol] 82 U/L Invalid Interpretation Code 40 - 135 U/L AO ADM SS ALT With P-5'-P [Catalytic activity/Vol] 22 U/L Invalid Interpretation Code 16 - 63 U/L AO ADM SS AST With P-5'-P [Catalytic activity/Vol] 24 U/L Invalid Interpretation Code 10 - 40 U/L AO ADM SS Bilirubin [Mass/Vol] 0.6 mg/dL Invalid Interpretation Code 0.2 - 1.0 mg/dL AO ADM SS Calcium [Mass/Vol] 9.2 mg/dL Invalid Interpretation Code 8.4 - 10.2 mg/dL AO ADM SS Chloride [Moles/Vol] 94 mmol/L Invalid Interpretation Code 98 - 107 mmol/L AO ADM SS CO2 [Moles/Vol] 27 mmol/L Invalid Interpretation Code 23 - 31 mmol/L AO ADM SS Creatinine [Mass/Vol] 1.36 mg/dL Invalid Interpretation Code 0.70 - 1.30 mg/dL AO ADM SS Electrolyte Balance 6.0 mEq/L Invalid Interpretation Code 4.0 - 15.0 mEq/L AO ADM SS Free T3 [Mass/Vol] 1.63 pg/mL Invalid Interpretation Code 2.30 - 4.00 pg/mL AO ADM SS Free T4 [Mass/Vol] 1.17 ng/dL Invalid Interpretation Code 0.76 - 1.46 ng/dL AO ADM SS GFR 62 ml/min/1.73sqm Invalid Interpretation Code AO Chemistry S GFR Non- 51 ml/min/1.73sqm Invalid Interpretation Code AO Chemistry S Globulin 3.2 G/dL Invalid Interpretation Code AO ADM SS Glucose [Mass/Vol] 133 mg/dL Invalid Interpretation Code 83 - 110 mg/dL AO ADM SS HbA1c (Bld) [Mass fraction] 6.2 % Invalid Interpretation Code 4.3 - 6.4 % AO ADM SS Natriuretic peptide.B prohormone N-Terminal [Mass/Vol] 351 pg/mL Invalid Interpretation Code 0 - 450 pg/mL AO ADM SS Potassium [Moles/Vol] 5.2 mmol/L Invalid Interpretation Code 3.5 - 5.1 mmol/L AO ADM SS Protein [Mass/Vol] 7.0 G/dL Invalid Interpretation Code 6.4 - 8.2 G/dL AO ADM SS Sodium [Moles/Vol] 127 mmol/L Invalid Interpretation Code 136 - 145 mmol/L AO ADM SS TSH Qn 23.79 m[IU]/L Invalid Interpretation Code 0.36 - 3.74 mcIU/mL AO ADM SS Urea nitrogen [Mass/Vol] 12 mg/dL Invalid Interpretation Code 7 - 18 mg/dL AO ADM SS Urea nitrogen/Creatinine [Mass ratio] 9 ratio Invalid Interpretation Code 7 - 27 ratio AO ADM SS LABORATORYOrdered By: Beverley Galdamez on 07-08-2022 Basophil, Absolute 0.1 103/mcL Invalid Interpretation Code 0.0 - 0.2 10^3/mcL AO Workflow SS Basophils/100 WBC (Bld) 0.8 % Invalid Interpretation Code 0.0 - 2.5 % AO Workflow SS Eosinophil, Absolute 0.4 103/mcL Invalid Interpretation Code 0.0 - 0.4 10^3/mcL AO Workflow SS Eosinophils/100 WBC (Bld) 4.9 % Invalid Interpretation Code 0.0 - 7.0 % AO Workflow SS Erythrocyte distribution width (RBC) [Ratio] 14.3 % Invalid Interpretation Code 11.5 - 14.5 % AO Workflow SS ESR 15 minute reading (Bld) [Velocity] 7 mm/hr Invalid Interpretation Code 0 - 20 mm/hr AO Man Heme SS Hematocrit (Bld) [Volume fraction] 40.9 % Invalid Interpretation Code 42.0 - 52.0 % AO Workflow SS Hemoglobin (Bld) [Mass/Vol] 14.0 G/dL Invalid Interpretation Code 14.0 - 18.0 G/dL AO Workflow SS Lymphocyte, Absolute 0.9 103/mcL Invalid Interpretation Code 0.8 - 3.9 10^3/mcL AO Workflow SS Lymphocytes/100 WBC (Bld) 9.6 % Invalid Interpretation Code 10.0 - 50.0 % AO Workflow SS MCH (RBC) [Entitic mass] 31.8 pg Invalid Interpretation Code 27.0 - 31.2 pg AO Workflow SS MCHC 34.2 G/dL Invalid Interpretation Code 31.8 - 35.4 G/dL AO Workflow SS MCV (RBC) [Entitic vol] 92.9 fL Invalid Interpretation Code 80.0 - 94.0 fL AO Workflow SS Monocyte, Absolute 0.9 103/mcL Invalid Interpretation Code 0.2 - 1.0 10^3/mcL AO Workflow SS Monocytes/100 WBC (Bld) 10.4 % Invalid Interpretation Code 1.7 - 13.0 % AO Workflow SS Neutrophil, Absolute 6.6 103/mcL Invalid Interpretation Code 2.9 - 6.2 10^3/mcL AO Workflow SS Neutrophils/100 WBC (Bld) 74.3 % Invalid Interpretation Code 37.0 - 80.0 % AO Workflow SS Platelet mean volume (Bld) [Entitic vol] 7.3 fL Invalid Interpretation Code 7.4 - 10.4 fL AO Workflow SS Platelets (Bld) [#/Vol] 289 103/mcL Invalid Interpretation Code 130 - 400 10^3/mcL AO Workflow SS RBC (Bld) [#/Vol] 4.41 106/mcL Invalid Interpretation Code 4.04 - 6.13 10^6/mcL AO Workflow SS WBC (Bld) [#/Vol] 8.9 103/mcL Invalid Interpretation Code 4.6 - 10.8 10^3/mcL AO Workflow SS LABORATORYOrdered By: Fide Mathur on 07-08-2022 CRP [Mass/Vol] mg/dL Invalid Interpretation Code 0.0 - 0.9 mg/dL AO Chemistry S LABORATORYOrdered By: Earl Geller on 03-17-2022 Albumin BCP dye [Mass/Vol] 3.9 G/dL Invalid Interpretation Code 3.4 - 4.8 G/dL AO ADM SS Albumin/Globulin [Mass ratio] 1.2 {ratio} Invalid Interpretation Code 1.1 - 2.5 ratio AO ADM SS ALP [Catalytic activity/Vol] 86 U/L Invalid Interpretation Code 40 - 135 U/L AO ADM SS ALT With P-5'-P [Catalytic activity/Vol] 18 U/L Invalid Interpretation Code 16 - 63 U/L AO ADM SS AST With P-5'-P [Catalytic activity/Vol] 20 U/L Invalid Interpretation Code 10 - 40 U/L AO ADM SS Bilirubin [Mass/Vol] 0.8 mg/dL Invalid Interpretation Code 0.2 - 1.0 mg/dL AO ADM SS Calcium [Mass/Vol] 9.4 mg/dL Invalid Interpretation Code 8.4 - 10.2 mg/dL AO ADM SS Chloride [Moles/Vol] 94 mmol/L Invalid Interpretation Code 98 - 107 mmol/L AO ADM SS Cholesterol [Mass/Vol] 163 mg/dL Invalid Interpretation Code 0 - 200 mg/dL AO ADM SS Cholesterol in HDL [Mass/Vol] 63 mg/dL Invalid Interpretation Code 40 - 60 mg/dL AO ADM SS Cholesterol in LDL [Mass/Vol] 82 mg/dL Invalid Interpretation Code 0 - 130 mg/dL AO ADM SS CO2 [Moles/Vol] 26 mmol/L Invalid Interpretation Code 23 - 31 mmol/L AO ADM SS Creatinine [Mass/Vol] 1.31 mg/dL Invalid Interpretation Code 0.70 - 1.30 mg/dL AO ADM SS Electrolyte Balance 9.0 mEq/L Invalid Interpretation Code 4.0 - 15.0 mEq/L AO ADM SS Free T4 [Mass/Vol] 1.73 ng/dL Invalid Interpretation Code 0.76 - 1.46 ng/dL AO ADM SS Globulin 3.3 G/dL Invalid Interpretation Code AO ADM SS Glucose [Mass/Vol] 137 mg/dL Invalid Interpretation Code 83 - 110 mg/dL AO ADM SS HbA1c (Bld) [Mass fraction] 6.7 % Invalid Interpretation Code 4.3 - 6.4 % AO ADM SS Potassium [Moles/Vol] 4.6 mmol/L Invalid Interpretation Code 3.5 - 5.1 mmol/L AO ADM SS Prostate specific Ag [Mass/Vol] 3.21 ng/mL Invalid Interpretation Code 0.00 - 4.00 ng/mL AO ADM SS Protein [Mass/Vol] 7.2 G/dL Invalid Interpretation Code 6.4 - 8.2 G/dL AO ADM SS Sodium [Moles/Vol] 129 mmol/L Invalid Interpretation Code 136 - 145 mmol/L AO ADM SS Triglyceride [Mass/Vol] 91 mg/dL Invalid Interpretation Code 0 - 150 mg/dL AO ADM SS TSH Qn 1.94 m[IU]/L Invalid Interpretation Code 0.36 - 3.74 mcIU/mL AO ADM SS Urea nitrogen [Mass/Vol] 9 mg/dL Invalid Interpretation Code 7 - 18 mg/dL AO ADM SS Urea nitrogen/Creatinine [Mass ratio] 7 ratio Invalid Interpretation Code 7 - 27 ratio AO ADM SS LABORATORYOrdered By: Addison Yin on 03-17-2022 Basophil, Absolute 0.1 103/mcL Invalid Interpretation Code 0.0 - 0.2 10^3/mcL AO Workflow SS Basophils/100 WBC (Bld) 1.0 % Invalid Interpretation Code 0.0 - 2.5 % AO Workflow SS Eosinophil, Absolute 0.6 103/mcL Invalid Interpretation Code 0.0 - 0.4 10^3/mcL AO Workflow SS Eosinophils/100 WBC (Bld) 9.0 % Invalid Interpretation Code 0.0 - 7.0 % AO Workflow SS Erythrocyte distribution width (RBC) [Ratio] 13.6 % Invalid Interpretation Code 11.5 - 14.5 % AO Workflow SS Hematocrit (Bld) [Volume fraction] 43.7 % Invalid Interpretation Code 42.0 - 52.0 % AO Workflow SS Hemoglobin (Bld) [Mass/Vol] 14.9 G/dL Invalid Interpretation Code 14.0 - 18.0 G/dL AO Workflow SS Lymphocyte, Absolute 1.4 103/mcL Invalid Interpretation Code 0.8 - 3.9 10^3/mcL AO Workflow SS Lymphocytes/100 WBC (Bld) 19.6 % Invalid Interpretation Code 10.0 - 50.0 % AO Workflow SS MCH (RBC) [Entitic mass] 32.2 pg Invalid Interpretation Code 27.0 - 31.2 pg AO Workflow SS MCHC 34.2 G/dL Invalid Interpretation Code 31.8 - 35.4 G/dL AO Workflow SS MCV (RBC) [Entitic vol] 94.0 fL Invalid Interpretation Code 80.0 - 94.0 fL AO Workflow SS Monocyte, Absolute 0.9 103/mcL Invalid Interpretation Code 0.2 - 1.0 10^3/mcL AO Workflow SS Monocytes/100 WBC (Bld) 12.6 % Invalid Interpretation Code 1.7 - 13.0 % AO Workflow SS Neutrophil, Absolute 4.0 103/mcL Invalid Interpretation Code 2.9 - 6.2 10^3/mcL AO Workflow SS Neutrophils/100 WBC (Bld) 57.8 % Invalid Interpretation Code 37.0 - 80.0 % AO Workflow SS Platelet mean volume (Bld) [Entitic vol] 8.1 fL Invalid Interpretation Code 7.4 - 10.4 fL AO Workflow SS Platelets (Bld) [#/Vol] 305 103/mcL Invalid Interpretation Code 130 - 400 10^3/mcL AO Workflow SS RBC (Bld) [#/Vol] 4.64 106/mcL Invalid Interpretation Code 4.04 - 6.13 10^6/mcL AO Workflow SS WBC (Bld) [#/Vol] 6.9 103/mcL Invalid Interpretation Code 4.6 - 10.8 10^3/mcL AO Workflow SS LABORATORYOrdered By: SYSTEM SYSTEM on 03-17-2022 GFR 65 ml/min/1.73sqm Invalid Interpretation Code AO Chemistry S GFR Non- 53 ml/min/1.73sqm Invalid Interpretation Code AO Chemistry S LABORATORYOrdered By: Earl Geller on 12-16-2021 Albumin BCP dye [Mass/Vol] 3.8 G/dL Invalid Interpretation Code 3.4 - 4.8 G/dL AO ADM SS Albumin/Globulin [Mass ratio] 1.2 {ratio} Invalid Interpretation Code 1.1 - 2.5 ratio AO ADM SS ALP [Catalytic activity/Vol] 74 U/L Invalid Interpretation Code 40 - 135 U/L AO ADM SS ALT With P-5'-P [Catalytic activity/Vol] 29 U/L Invalid Interpretation Code 16 - 63 U/L AO ADM SS AST With P-5'-P [Catalytic activity/Vol] 20 U/L Invalid Interpretation Code 10 - 40 U/L AO ADM SS Bilirubin [Mass/Vol] 0.7 mg/dL Invalid Interpretation Code 0.2 - 1.0 mg/dL AO ADM SS Calcium [Mass/Vol] 9.3 mg/dL Invalid Interpretation Code 8.4 - 10.2 mg/dL AO ADM SS Chloride [Moles/Vol] 97 mmol/L Invalid Interpretation Code 98 - 107 mmol/L AO ADM SS Cholesterol [Mass/Vol] 166 mg/dL Invalid Interpretation Code 0 - 200 mg/dL AO ADM SS Cholesterol in HDL [Mass/Vol] 55 mg/dL Invalid Interpretation Code 40 - 60 mg/dL AO ADM SS Cholesterol in LDL [Mass/Vol] 83 mg/dL Invalid Interpretation Code 0 - 130 mg/dL AO ADM SS CO2 [Moles/Vol] 25 mmol/L Invalid Interpretation Code 23 - 31 mmol/L AO ADM SS Creatinine [Mass/Vol] 1.30 mg/dL Invalid Interpretation Code 0.70 - 1.30 mg/dL AO ADM SS Electrolyte Balance 10.0 mEq/L Invalid Interpretation Code 4.0 - 15.0 mEq/L AO ADM SS Free T4 [Mass/Vol] 1.39 ng/dL Invalid Interpretation Code 0.76 - 1.46 ng/dL AO ADM SS Globulin 3.2 G/dL Invalid Interpretation Code AO ADM SS Glucose [Mass/Vol] 131 mg/dL Invalid Interpretation Code 83 - 110 mg/dL AO ADM SS HbA1c (Bld) [Mass fraction] 5.3 % Invalid Interpretation Code 4.3 - 6.4 % AO ADM SS Potassium [Moles/Vol] 4.5 mmol/L Invalid Interpretation Code 3.5 - 5.1 mmol/L AO ADM SS Protein [Mass/Vol] 7.0 G/dL Invalid Interpretation Code 6.4 - 8.2 G/dL AO ADM SS Sodium [Moles/Vol] 132 mmol/L Invalid Interpretation Code 136 - 145 mmol/L AO ADM SS Triglyceride [Mass/Vol] 138 mg/dL Invalid Interpretation Code 0 - 150 mg/dL AO ADM SS TSH Qn 1.16 m[IU]/L Invalid Interpretation Code 0.36 - 3.74 mcIU/mL AO ADM SS Urea nitrogen [Mass/Vol] 13 mg/dL Invalid Interpretation Code 7 - 18 mg/dL AO ADM SS Urea nitrogen/Creatinine [Mass ratio] 10 ratio Invalid Interpretation Code 7 - 27 ratio AO ADM SS LABORATORYOrdered By: SYSTEM SYSTEM on 12-16-2021 GFR 65 ml/min/1.73sqm Invalid Interpretation Code AO Chemistry S GFR Non- 54 ml/min/1.73sqm Invalid Interpretation Code AO Chemistry S LABORATORYOrdered By: Dillan Quintero on 12-09-2021 Glucose [Mass/Vol] 117 mg/dL Invalid Interpretation Code 82 - 115 mg/dL [facility] LABORATORYOrdered By: Bruna Lechuga on 12-09-2021 Basophil, Absolute 0.0 103/mcL Invalid Interpretation Code 0.0 - 0.2 10^3/mcL AO Workflow SS Basophils/100 WBC (Bld) 0.7 % Invalid Interpretation Code 0.0 - 2.5 % AO Workflow SS Calcium [Mass/Vol] 8.8 mg/dL Invalid Interpretation Code 8.4 - 10.2 mg/dL AO ADM SS Chloride [Moles/Vol] 98 mmol/L Invalid Interpretation Code 98 - 107 mmol/L AO ADM SS CO2 [Moles/Vol] 23 mmol/L Invalid Interpretation Code 23 - 31 mmol/L AO ADM SS Creatinine [Mass/Vol] 1.00 mg/dL Invalid Interpretation Code 0.70 - 1.30 mg/dL AO ADM SS Electrolyte Balance 11.0 mEq/L Invalid Interpretation Code 4.0 - 15.0 mEq/L AO ADM SS Eosinophil, Absolute 0.5 103/mcL Invalid Interpretation Code 0.0 - 0.4 10^3/mcL AO Workflow SS Eosinophils/100 WBC (Bld) 6.9 % Invalid Interpretation Code 0.0 - 7.0 % AO Workflow SS Erythrocyte distribution width (RBC) [Ratio] 14.2 % Invalid Interpretation Code 11.5 - 14.5 % AO Workflow SS Glucose [Mass/Vol] 84 mg/dL Invalid Interpretation Code 83 - 110 mg/dL AO ADM SS Hematocrit (Bld) [Volume fraction] 40.0 % Invalid Interpretation Code 42.0 - 52.0 % AO Workflow SS Hemoglobin (Bld) [Mass/Vol] 13.9 G/dL Invalid Interpretation Code 14.0 - 18.0 G/dL AO Workflow SS Lymphocyte, Absolute 0.9 103/mcL Invalid Interpretation Code 0.8 - 3.9 10^3/mcL AO Workflow SS Lymphocytes/100 WBC (Bld) 13.5 % Invalid Interpretation Code 10.0 - 50.0 % AO Workflow SS MCH (RBC) [Entitic mass] 33.4 pg Invalid Interpretation Code 27.0 - 31.2 pg AO Workflow SS MCHC 34.8 G/dL Invalid Interpretation Code 31.8 - 35.4 G/dL AO Workflow SS MCV (RBC) [Entitic vol] 95.9 fL Invalid Interpretation Code 80.0 - 94.0 fL AO Workflow SS Monocyte, Absolute 0.9 103/mcL Invalid Interpretation Code 0.2 - 1.0 10^3/mcL AO Workflow SS Monocytes/100 WBC (Bld) 12.8 % Invalid Interpretation Code 1.7 - 13.0 % AO Workflow SS Neutrophil, Absolute 4.4 103/mcL Invalid Interpretation Code 2.9 - 6.2 10^3/mcL AO Workflow SS Neutrophils/100 WBC (Bld) 66.1 % Invalid Interpretation Code 37.0 - 80.0 % AO Workflow SS Platelet mean volume (Bld) [Entitic vol] 7.1 fL Invalid Interpretation Code 7.4 - 10.4 fL AO Workflow SS Platelets (Bld) [#/Vol] 277 103/mcL Invalid Interpretation Code 130 - 400 10^3/mcL AO Workflow SS Potassium [Moles/Vol] 4.8 mmol/L Invalid Interpretation Code 3.5 - 5.1 mmol/L AO ADM SS RBC (Bld) [#/Vol] 4.17 106/mcL Invalid Interpretation Code 4.04 - 6.13 10^6/mcL AO Workflow SS Sodium [Moles/Vol] 132 mmol/L Invalid Interpretation Code 136 - 145 mmol/L AO ADM SS TSH Qn 0.58 m[IU]/L Invalid Interpretation Code 0.36 - 3.74 mcIU/mL AO ADM SS Urea nitrogen [Mass/Vol] 8 mg/dL Invalid Interpretation Code 7 - 18 mg/dL AO ADM SS Urea nitrogen/Creatinine [Mass ratio] 8 ratio Invalid Interpretation Code 7 - 27 ratio AO ADM SS WBC 6.7 103/mcL Invalid Interpretation Code 4.6 - 10.8 10^3/mcL AO Workflow SS LABORATORYOrdered By: [employer] SYSTEM on 12-09-2021 Cortisol [Mass/Vol] 14.6 ug/dL Invalid Interpretation Code 6.5 - 26.0 mcg/dL AH ADM SS GFR 88 ml/min/1.73sqm Invalid Interpretation Code AO Chemistry S GFR Non- 73 ml/min/1.73sqm Invalid Interpretation Code AO Chemistry S Monocyte distribution width Auto (Bld) [Entitic vol] Not Performed 1 *NA* (12/09/21 5:35 AM) Invalid Interpretation Code 0.00 - 20.00 AO Hematology S Comment on above: Result Comment: MDW testing performed only on adult ER patients between the ages of 18-89 years. LABORATORYOrdered By: Iza Gamez on 12-08-2021 Blood Glucose Testing Reason Routine (12/08/21 8:56 PM) [facility] Glucose [Mass/Vol] 107 mg/dL Invalid Interpretation Code 82 - 115 mg/dL [facility] LABORATORYOrdered By: Moses Brewer on 12-08-2021 Blood Glucose Testing Reason Routine (12/08/21 4:11 PM) [facility] Glucose [Mass/Vol] 151 mg/dL Invalid Interpretation Code 82 - 115 mg/dL [facility] Blood Glucose Testing Reason Routine (12/08/21 12:17 PM) [facility] LABORATORYOrdered By: Prosper Osborne on 12-08-2021 Calcium [Mass/Vol] 8.3 mg/dL Invalid Interpretation Code 8.4 - 10.2 mg/dL AO ADM SS Chloride [Moles/Vol] 96 mmol/L Invalid Interpretation Code 98 - 107 mmol/L AO ADM SS CO2 [Moles/Vol] 24 mmol/L Invalid Interpretation Code 23 - 31 mmol/L AO ADM SS Creatinine [Mass/Vol] 1.37 mg/dL Invalid Interpretation Code 0.70 - 1.30 mg/dL AO ADM SS Electrolyte Balance 6.0 mEq/L Invalid Interpretation Code 4.0 - 15.0 mEq/L AO ADM SS Glucose [Mass/Vol] 156 mg/dL Invalid Interpretation Code 83 - 110 mg/dL AO ADM SS Potassium [Moles/Vol] 4.8 mmol/L Invalid Interpretation Code 3.5 - 5.1 mmol/L AO ADM SS Sodium [Moles/Vol] 126 mmol/L Invalid Interpretation Code 136 - 145 mmol/L AO ADM SS Urea nitrogen [Mass/Vol] 10 mg/dL Invalid Interpretation Code 7 - 18 mg/dL AO ADM SS Urea nitrogen/Creatinine [Mass ratio] 7 ratio Invalid Interpretation Code 7 - 27 ratio AO ADM SS Sodium (U) [Moles/Vol] 21 mmol/L Invalid Interpretation Code 20 - 110 mmol/L AO ADM SS LABORATORYOrdered By: SYSTEM SYSTEM on 12-08-2021 GFR 61 ml/min/1.73sqm Invalid Interpretation Code AO Chemistry S GFR Non- 51 ml/min/1.73sqm Invalid Interpretation Code AO Chemistry S GFR 65 ml/min/1.73sqm Invalid Interpretation Code AO Chemistry S GFR Non- 53 ml/min/1.73sqm Invalid Interpretation Code AO Chemistry S LABORATORYOrdered By: Nory Castaneda on 12-08-2021 Appearance (U) Clear (12/08/21 6:11 AM) Invalid Interpretation Code Clear AO Auto Urine SS Basophil, Absolute 0.0 103/mcL Invalid Interpretation Code 0.0 - 0.2 10^3/mcL AO Workflow SS Basophils/100 WBC (Bld) 0.4 % Invalid Interpretation Code 0.0 - 2.5 % AO Workflow SS Bilirubin Ql (U) Negative (12/08/21 6:11 AM) Invalid Interpretation Code Negative AO Auto Urine SS Calcium [Mass/Vol] 9.1 mg/dL Invalid Interpretation Code 8.4 - 10.2 mg/dL AO ADM SS Chloride [Moles/Vol] 95 mmol/L Invalid Interpretation Code 98 - 107 mmol/L AO ADM SS CO2 [Moles/Vol] 21 mmol/L Invalid Interpretation Code 23 - 31 mmol/L AO ADM SS Color (U) Yellow (12/08/21 6:11 AM) Invalid Interpretation Code AO Auto Urine SS Creatinine [Mass/Vol] 1.31 mg/dL Invalid Interpretation Code 0.70 - 1.30 mg/dL AO ADM SS Electrolyte Balance 10.0 mEq/L Invalid Interpretation Code 4.0 - 15.0 mEq/L AO ADM SS Eosinophil, Absolute 0.1 103/mcL Invalid Interpretation Code 0.0 - 0.4 10^3/mcL AO Workflow SS Eosinophils/100 WBC (Bld) 1.9 % Invalid Interpretation Code 0.0 - 7.0 % AO Workflow SS Erythrocyte distribution width (RBC) [Ratio] 14.3 % Invalid Interpretation Code 11.5 - 14.5 % AO Workflow SS Glucose [Mass/Vol] 102 mg/dL Invalid Interpretation Code 83 - 110 mg/dL AO ADM SS Glucose Test strip (U) [Mass/Vol] Negative Invalid Interpretation Code Negativemg/dL AO Auto Urine SS Hematocrit (Bld) [Volume fraction] 43.0 % Invalid Interpretation Code 42.0 - 52.0 % AO Workflow SS Hemoglobin (Bld) [Mass/Vol] 14.9 G/dL Invalid Interpretation Code 14.0 - 18.0 G/dL AO Workflow SS Hemoglobin Auto test strip (U) [Mass/Vol] Negative (12/08/21 6:11 AM) Invalid Interpretation Code Negative AO Auto Urine SS Ketones Ql (U) Negative Invalid Interpretation Code Negativemg/dL AO Auto Urine SS Lymphocyte, Absolute 1.0 103/mcL Invalid Interpretation Code 0.8 - 3.9 10^3/mcL AO Workflow SS Lymphocytes/100 WBC (Bld) 16.5 % Invalid Interpretation Code 10.0 - 50.0 % AO Workflow SS MCH (RBC) [Entitic mass] 33.3 pg Invalid Interpretation Code 27.0 - 31.2 pg AO Workflow SS MCHC 34.6 G/dL Invalid Interpretation Code 31.8 - 35.4 G/dL AO Workflow SS MCV (RBC) [Entitic vol] 96.3 fL Invalid Interpretation Code 80.0 - 94.0 fL AO Workflow SS Monocyte distribution width Auto (Bld) [Entitic vol] 16.18 Invalid Interpretation Code 0.00 - 20.00 AO Workflow SS Comment on above: Result Comment: For ED adult patients suspected of sepsis, MDW<=20.0 does not rule out sepsis or risk of sepsis Monocyte, Absolute 0.6 103/mcL Invalid Interpretation Code 0.2 - 1.0 10^3/mcL AO Workflow SS Monocytes/100 WBC (Bld) 10.4 % Invalid Interpretation Code 1.7 - 13.0 % AO Workflow SS Neutrophil, Absolute 4.3 103/mcL Invalid Interpretation Code 2.9 - 6.2 10^3/mcL AO Workflow SS Neutrophils/100 WBC (Bld) 70.8 % Invalid Interpretation Code 37.0 - 80.0 % AO Workflow SS Platelet mean volume (Bld) [Entitic vol] 6.6 fL Invalid Interpretation Code 7.4 - 10.4 fL AO Workflow SS Platelets (Bld) [#/Vol] 276 103/mcL Invalid Interpretation Code 130 - 400 10^3/mcL AO Workflow SS Potassium [Moles/Vol] 4.7 mmol/L Invalid Interpretation Code 3.5 - 5.1 mmol/L AO ADM SS RBC (Bld) [#/Vol] 4.47 106/mcL Invalid Interpretation Code 4.04 - 6.13 10^6/mcL AO Workflow SS Sodium [Moles/Vol] 126 mmol/L Invalid Interpretation Code 136 - 145 mmol/L AO ADM SS UA Leuk Est Negative (12/08/21 6:11 AM) Invalid Interpretation Code Negative AO Auto Urine SS UA Nitrite Negative (12/08/21 6:11 AM) Invalid Interpretation Code Negative AO Auto Urine SS UA pH 5.5 (12/08/21 6:11 AM) Invalid Interpretation Code 5.0 - 8.0 AO Auto Urine SS UA Protein Negative Invalid Interpretation Code Negativemg/dL AO Auto Urine SS UA Spec Grav 1.015 (12/08/21 6:11 AM) Invalid Interpretation Code 1.015-1.025 AO Auto Urine SS UA Specimen Type Clean Catch (12/08/21 6:11 AM) Invalid Interpretation Code AO Auto Urine SS UA Urobilinogen 0.2 E.U./dL Invalid Interpretation Code 0.2-1.0E.U./d L AO Auto Urine SS Urea nitrogen [Mass/Vol] 11 mg/dL Invalid Interpretation Code 7 - 18 mg/dL AO ADM SS Urea nitrogen/Creatinine [Mass ratio] 8 ratio Invalid Interpretation Code 7 - 27 ratio AO ADM SS WBC 6.1 103/mcL Invalid Interpretation Code 4.6 - 10.8 10^3/mcL AO Workflow SS LABORATORYOrdered By: Karen Franco on 12-08-2021 Osmolality (U) [Osmolality] 212 mosm/kg Invalid Interpretation Code 390 - 1090 mOsm/kg Manual Chem SS LABORATORYOrdered By: El wong on 12-08-2021 Osmolality [Osmolality] 262 mosm/kg Invalid Interpretation Code 275 - 300 mOsm/kg Manual Chem SS LABORATORYOrdered By: Bruna Lechuga on 09-16-2021 Prostate specific Ag [Mass/Vol] 3.78 ng/mL Invalid Interpretation Code 0.00 - 4.00 ng/mL AO ADM SS LABORATORYOrdered By: Prosper Osborne on 06-16-2021 Albumin BCP dye [Mass/Vol] 3.8 G/dL Invalid Interpretation Code 3.4 - 4.8 G/dL AO ADM SS Albumin/Globulin [Mass ratio] 1.2 {ratio} Invalid Interpretation Code 1.1 - 2.5 ratio AO ADM SS ALP [Catalytic activity/Vol] 66 U/L Invalid Interpretation Code 40 - 135 U/L AO ADM SS ALT With P-5'-P [Catalytic activity/Vol] 18 U/L Invalid Interpretation Code 16 - 63 U/L AO ADM SS AST With P-5'-P [Catalytic activity/Vol] 21 U/L Invalid Interpretation Code 10 - 40 U/L AO ADM SS Bilirubin [Mass/Vol] 0.6 mg/dL Invalid Interpretation Code 0.2 - 1.0 mg/dL AO ADM SS Calcium [Mass/Vol] 9.3 mg/dL Invalid Interpretation Code 8.4 - 10.2 mg/dL AO ADM SS Chloride [Moles/Vol] 95 mmol/L Invalid Interpretation Code 98 - 107 mmol/L AO ADM SS Cholesterol [Mass/Vol] 150 mg/dL Invalid Interpretation Code 0 - 200 mg/dL AO ADM SS Cholesterol in HDL [Mass/Vol] 71 mg/dL Invalid Interpretation Code 40 - 60 mg/dL AO ADM SS Cholesterol in LDL [Mass/Vol] 67 mg/dL Invalid Interpretation Code 0 - 130 mg/dL AO ADM SS CO2 [Moles/Vol] 25 mmol/L Invalid Interpretation Code 23 - 31 mmol/L AO ADM SS Creatinine [Mass/Vol] 1.22 mg/dL Invalid Interpretation Code 0.70 - 1.30 mg/dL AO ADM SS Electrolyte Balance 10.0 mEq/L Invalid Interpretation Code 4.0 - 15.0 mEq/L AO ADM SS Free T4 [Mass/Vol] 1.60 ng/dL Invalid Interpretation Code 0.76 - 1.46 ng/dL AO ADM SS Globulin 3.1 G/dL Invalid Interpretation Code AO ADM SS Glucose [Mass/Vol] 77 mg/dL Invalid Interpretation Code 83 - 110 mg/dL AO ADM SS HbA1c (Bld) [Mass fraction] 5.1 % Invalid Interpretation Code 4.3 - 6.4 % AO ADM SS Potassium [Moles/Vol] 5.0 mmol/L Invalid Interpretation Code 3.5 - 5.1 mmol/L AO ADM SS Protein [Mass/Vol] 6.9 G/dL Invalid Interpretation Code 6.4 - 8.2 G/dL AO ADM SS Sodium [Moles/Vol] 130 mmol/L Invalid Interpretation Code 136 - 145 mmol/L AO ADM SS Triglyceride [Mass/Vol] 62 mg/dL Invalid Interpretation Code 0 - 150 mg/dL AO ADM SS TSH Qn 0.18 m[IU]/L Invalid Interpretation Code 0.36 - 3.74 mcIU/mL AO ADM SS Urea nitrogen [Mass/Vol] 10 mg/dL Invalid Interpretation Code 7 - 18 mg/dL AO ADM SS Urea nitrogen/Creatinine [Mass ratio] 8 ratio Invalid Interpretation Code 7 - 27 ratio AO ADM SS LABORATORYOrdered By: SYSTEM SYSTEM on 06-16-2021 GFR 70 ml/min/1.73sqm Invalid Interpretation Code AO Chemistry S GFR Non- 58 ml/min/1.73sqm Invalid Interpretation Code AO Chemistry S LABORATORYOrdered By: Earl Geller on 03-19-2021 Prostate specific Ag [Mass/Vol] 8.55 ng/mL Invalid Interpretation Code 0.00 - 4.00 ng/mL AO ADM SS HbA1c (Bld) [Mass fraction] 5.6 % Invalid Interpretation Code 4.3 - 6.4 % AO ADM SS LABORATORYOrdered By: Agata Soto on 03-19-2021 Albumin BCP dye [Mass/Vol] 3.9 G/dL Invalid Interpretation Code 3.4 - 4.8 G/dL AO ADM SS Albumin/Globulin [Mass ratio] 1.3 {ratio} Invalid Interpretation Code 1.1 - 2.5 ratio AO ADM SS ALP [Catalytic activity/Vol] 72 U/L Invalid Interpretation Code 40 - 135 U/L AO ADM SS ALT With P-5'-P [Catalytic activity/Vol] 31 U/L Invalid Interpretation Code 16 - 63 U/L AO ADM SS AST With P-5'-P [Catalytic activity/Vol] 24 U/L Invalid Interpretation Code 10 - 40 U/L AO ADM SS Bilirubin [Mass/Vol] 0.6 mg/dL Invalid Interpretation Code 0.2 - 1.0 mg/dL AO ADM SS Calcium [Mass/Vol] 9.3 mg/dL Invalid Interpretation Code 8.4 - 10.2 mg/dL AO ADM SS Chloride [Moles/Vol] 98 mmol/L Invalid Interpretation Code 98 - 107 mmol/L AO ADM SS Cholesterol [Mass/Vol] 159 mg/dL Invalid Interpretation Code 0 - 200 mg/dL AO ADM SS Cholesterol in HDL [Mass/Vol] 62 mg/dL Invalid Interpretation Code 40 - 60 mg/dL AO ADM SS Cholesterol in LDL [Mass/Vol] 79 mg/dL Invalid Interpretation Code 0 - 130 mg/dL AO ADM SS CO2 [Moles/Vol] 25 mmol/L Invalid Interpretation Code 23 - 31 mmol/L AO ADM SS Creatinine [Mass/Vol] 1.19 mg/dL Invalid Interpretation Code 0.70 - 1.30 mg/dL AO ADM SS Electrolyte Balance 10.0 mEq/L Invalid Interpretation Code AO ADM SS Free T4 [Mass/Vol] 1.87 ng/dL Invalid Interpretation Code 0.76 - 1.46 ng/dL AO ADM SS Globulin 3.1 G/dL Invalid Interpretation Code AO ADM SS Glucose [Mass/Vol] 75 mg/dL Invalid Interpretation Code 83 - 110 mg/dL AO ADM SS Potassium [Moles/Vol] 4.6 mmol/L Invalid Interpretation Code 3.5 - 5.1 mmol/L AO ADM SS Protein [Mass/Vol] 7.0 G/dL Invalid Interpretation Code 6.4 - 8.2 G/dL AO ADM SS Sodium [Moles/Vol] 133 mmol/L Invalid Interpretation Code 136 - 145 mmol/L AO ADM SS Triglyceride [Mass/Vol] 91 mg/dL Invalid Interpretation Code 0 - 150 mg/dL AO ADM SS TSH Qn 0.01 m[IU]/L Invalid Interpretation Code 0.36 - 3.74 mcIU/mL AO ADM SS Urea nitrogen [Mass/Vol] 10 mg/dL Invalid Interpretation Code 7 - 18 mg/dL AO ADM SS Urea nitrogen/Creatinine [Mass ratio] 8 ratio Invalid Interpretation Code 7 - 27 ratio AO ADM SS LABORATORYOrdered By: SYSTEM SYSTEM on 03-19-2021 GFR 72 ml/min/1.73sqm Invalid Interpretation Code AO Chemistry S GFR Non- 60 ml/min/1.73sqm Invalid Interpretation Code AO Chemistry S PSA,Total- Diagnosticon 11-0 PSA, DIAGNOSTIC 7.71 ng/mL High 0.0-4.0 [facility] Comment on above: Result Comment: This test was performed using the TPSA assay method for [employer] chemistry system. Values obtained with differentassay methods cannot be used interchangably.When changing PSA assays in the course of monitoring apatient, additional sequential testing should be carriedout to confirm baseline values. Performed By: #### L [id number] ####[facility] [id number] [place], [address] Vital Signs Date Time Vital Sign Value Performing Clinician To[facility] booth 02-03-2023 11:18-0400 Diastolic Blood Pressure Non-Invasive 84 1 [place] DO [facility] 02-03-2023 11:18-0400 Heart rate 95 /min [facility] 02-03-2023 11:18-0400 Respiratory rate 18 /min [facility] DO [facility] 02-03-2023 11:18-0400 Systolic Blood Pressure Non-Invasive 121 1 CARINE REICHFIELD DO [facility] 02-03-2023 08:49-0400 Body temperature 97.52 [degF] CARINE REICHFIELD DO [facility] 02-03-2023 08:49-0400 Body weight 91 kg CARINE REICHFIELD DO [facility] 02-03-2023 08:49-0400 Diastolic Blood Pressure Non-Invasive 74 1 CARINE REICHFIELD DO [facility] 02-03-2023 08:49-0400 Heart rate 101 /min CARINE REICHFIELD DO [facility] 02-03-2023 08:49-0400 Respiratory rate 18 /min CARINE REICHFIELD DO [facility] 02-03-2023 08:49-0400 Systolic Blood Pressure Non-Invasive 123 1 CARINE REICHFIELD DO [facility] 12-09-2021 14:00-0400 Heart rate 71 /min CRUZ KAPPER [employer] TECH[employer]ICIAN[employer] [facility] 12-09-2021 14:00-0400 Mean blood pressure 102 mm[Hg] CRUZ K[employer] TESTING TECHNICIAN[employer] [facility] 12-09-2021 14:00-0400 Respiratory rate 16 /min CRUZ K[employer]PER [employer] TESTING TECHNICIAN[employer] [facility] 12-09-2021 14:00-0400 Systolic blood pressure 163 mm[Hg] CRUZ KAPPER [employer] TESTING TECHNICIAN[employer] [facility] 12-09-2021 06:58-0400 Body temperature 98.42 [degF] CRUZ KAPPER [employer] TESTING TECHNICIAN[employer] [facility] 12-09-2021 06:58-0400 Diastolic blood pressure 69 mm[Hg] CRUZ KAPPER [employer] TESTING TECHNICIAN[employer] [facility] 12-09-2021 06:58-0400 Heart rate 70 /min CRUZ KAPPER [employer] TESTING TECHNICIAN[employer] [facility] 12-09-2021 06:58-0400 Reason For Taking VItal Signs CRUZ KAPPER [employer] TESTING TECHNICIAN[employer] [facility] 12-09-2021 06:58-0400 Respiratory rate 20 /min CRUZ KAPPER [employer] TESTING TECHNICIAN[employer] [facility] 12-09-2021 06:58-0400 Systolic blood pressure 149 mm[Hg] CRUZ KAPPER [employer] TESTING TECHNICIAN[employer] [facility] 12-09-2021 03:30-0400 Body temperature 98.24 [degF] CRUZ KAPPER [employer] TESTING TECHNICIAN[employer] [facility] 12-09-2021 03:30-0400 Diastolic blood pressure 71 mm[Hg] CRUZ KAPPER [employer] TESTING TECHNICIAN[employer] [facility] 12-09-2021 03:30-0400 Heart rate 59 /min CRUZ KAPPER [employer] TESTING TECHNICIAN[employer] [facility] 12-09-2021 03:30-0400 Respiratory rate 20 /min CRUZ KAPPER [employer] TESTING TECHNICIAN[employer] [facility] 12-09-2021 03:30-0400 Systolic blood pressure 138 mm[Hg] CRUZ KAPPER [employer] TESTING TECHNICIAN[employer] [facility] 12-09-2021 00:23-0400 Mean blood pressure 107 mm[Hg] CRUZ KAPPER [employer] TESTING TECHNICIAN[employer] [facility] 12-08-2021 22:00-0400 Heart rate 69 /min CRUZ KAPPER [employer] TESTING TECHNICIAN[employer] [facility] 12-08-2021 20:00-0400 Heart rate 76 /min CRUZ K[employer]PER [employer] TESTING TECHNICIAN[employer] [facility] 12-08-2021 14:03-0400 Heart rate 100 /min CRUZ K[employer] TESTING TE[employer]NICIAN[employer] [facility] 12-08-2021 11:25-0400 Body height 177.8 cm CRUZ KAPPER [employer] TESTING TECHNICIAN[employer] [facility] 12-08-2021 11:25-0400 Body weight 99.3 kg CRUZ KAPPER [employer] TESTING TECHNICIAN[employer] [facility] 12-08-2021 11:12-0400 Body height 177.8 cm CRUZ KAPPER [employer] TESTING TECHNICIAN[employer] [facility] 12-08-2021 11:12-0400 Body weight 99.3 kg CRUZ KAPPER [employer] TESTING TECHNICIAN[employer] [facility] 12-08-2021 11:12-0400 Body weight 31.41 kg/m2 CRUZ KAPPER [employer] TESTING TECHNICIAN[employer] [facility] 12-08-2021 06:41-0400 Heart rate 87 /min CRUZ KAPPER [employer] TESTING TE[employer]NICIAN[employer] [facility] 12-08-2021 05:18-0400 Body height 177.8 cm CRUZ KAPPER [employer] TESTING TECHNICIAN[employer] [facility] 12-08-2021 05:18-0400 Heart rate 97 /min CRUZ K[employer]PER [employer] TESTING TECHNICIAN[employer] [facility] Encounters Encounter Date Encounter Type Care Provider Facility Start: 10-15-2024 End: 10-15-2024 ambulatory JIM MICHELE MD [facility] Start: 10-15-2024 End: 10-15-2024 Patient encounter procedure JIM MICHELE MD [facility] Start: 09-24-2024 End: 09-28-2024 ambulatory JIM MICHELE MD Facility[facility] Start: 09-24-2024 End: 09-28-2024 Outreach Lab JIM MICHELE MD [facility] Start: 03-28-2024 End: 04-01-2024 ambulatory JIM MICHELE MD Facility[facility] Start: 03-28-2024 End: 04-01-2024 Encounter for general adult medical examination without abnormal findings JIM MICHELE MD Facility:[facility] Start: 03-28-2024 End: 04-01-2024 Outreach Lab JIM MICHELE MD [facility] Start: 12-14-2023 End: 12-14-2023 ambulatory JIM MICHELE MD Facility:[facility] Start: 12-14-2023 End: 12-14-2023 Patient encounter procedure JIM MICHELE MD [facility] Start: 10-26-2023 End: 10-30-2023 ambulatory JIM MICHELE MD Facility:[facility] Start: 10-26-2023 End: 10-30-2023 Outreach Lab JIM MICHELE MD [facility] Start: 09-19-2023 End: 09-23-2023 ambulatory JIM MICHELE MD Facility:[facility] Start: 09-19-2023 End: 09-23-2023 Outreach Lab JIM MICHELE MD [facility] Start: 03-23-2023 End: 03-27-2023 ambulatory JIM MICHELE MD Facility:[facility] Start: 03-23-2023 End: 03-27-2023 Outreach Lab JIM MICHELE MD [facility] Start: 02-22-2023 End: 02-22-2023 ambulatory JIM MICHELE MD Facility:[facility] Start: 02-03-2023 End: 02-03-2023 Emergency department patient visit CARINE FIERRO DO [facility] Start: 09-22-2022 End: 09-26-2022 Outreach Lab JIM MICHELE MD [facility] Start: 07-28-2022 End: 08-01-2022 Outreach Lab JIM MICHELE MD [facility] Start: 07-22-2022 End: 07-22-2022 Patient encounter procedure JIM MICHELE MD [facility] Start: 07-08-2022 End: 07-08-2022 Patient encounter procedure JIM MICHELE MD [facility] Start: 03-17-2022 End: 03-21-2022 Outreach Lab JIM MICHELE MD [facility] Start: 12-16-2021 End: 12-20-2021 Outreach Lab JIM MICHELE MD [facility] Start: 12-08-2021 End: 12-09-2021 Evaluation and management of inpatient CRUZ Autumn MOORE [employer] TESTING TECHNICIAN[employer] [facility] Start: 09-16-2021 End: 09-16-[address] JARRED KIM MD [facility] Start: 06-16-2021 End: 06-16-2021 Patient encounter procedure JIM MICHELE MD [facility] Start: 03-19-2021 End: 03-23-2021 Outreach Lab JIM MICHELE MD [facility] Start: 03-17-2017 Ambulatory Jarred Kim Faci lity:[facility] Procedures Date Procedure Procedure Detail Performing Clinician Start: 10-17-2014 Biopsy of prostate CONSTANCE MICHELE MD Comment on above: Dr. Rainey Start: 05-16-2002 Cholecystectomy JIM MICHELE MD Immunizations Immunization Date Immunization Notes Care Provider [facility] 02-13-2024 influenza virus vacc ine, unspecified formulation JIM MICHELE MD [facility] 02-14-2023 influenza virus vacc ine, unspecified formulation JIM MICHELE MD [facility] 04-12-2022 COVID-19, mRNA, LNP- S, bivalent, PF, 50 mcg/0.5 mL dose; Translations: [Moderna COVID-19 Bivalent Booster Vaccine PF] JIM MICHELE MD [facility] 04-12-2022 SARS-CoV-2 (CV19)[id number] bivalent vac; Translations: [Moderna COVID-19 Bivalent Booster Vaccine PF] JIM MICHELE MD [facility] 02-04-2022 influenza virus vacc ine, unspecified formulation JIM MICHELE MD [facility] 04-10-2021 COVID-19, mRNA, LNP- S, PF, 100 mcg or 50 mcg dose; Translations: [Moderna COVID-19 Vaccine] JIM MICHELE MD [facility] 02-07-2021 influenza virus vacc ine, unspecified formulation CRUZ MOORE PR[employer]URE TESTING TECHNICIAN[employer] [facility] 07-31-2020 COVID-19, mRNA, LNP- S, PF, 100 mcg/ 0.5 mL dose; Translations: [Moderna COVID-19 Vaccine] JIM MICHELE MD [facility] 07-03-2020 COVID-19, mRNA, LNP- S, PF, 100 mcg/ 0.5 mL dose; Translations: [Moderna COVID-19 Vaccine] JIM MICHELE MD [facility] 01-26-2020 influenza virus vacc ine, unspecified formulation JIM MICHELE MD [facility] 02-26-2019 influenza virus vacc ine, unspecified formulation JIM MICHELE MD [facility] 02-11-2018 influenza virus vacc ine, unspecified formulation JIM MICHELE MD [facility] 03-02-2017 influenza virus vacc ine, unspecified formulation JIM MICHELE MD [facility] 03-16-2016 influenza virus vacc ine, unspecified formulation JIM MICHELE MD [facility] 02-11-2016 influenza virus vacc ine, unspecified formulation JIM MICHELE MD [facility] 02-24-2015 influenza virus vacc ine, unspecified formulation JIM MICHELE MD [facility] 08-29-2013 tetanus toxoid, redu ludmila diphtheria toxoid, and acellular pertussis vaccine, adsorbed JIM MICHELE MD [facility] 08-27-2011 pneumococcal polysaccharide vaccine, 23 valent JIM MICHELE MD [facility] Payers Date Payer Category Payer Unknown [id number] 2021 Private Health Insurance [id number] 2021 Unknown [id number] 1945 Unknown [id number] 2.16.8 [id number] 1946 Unknown [id number] 2.16.8 [id number] 1946 Unknown [id number] 2.16.8 [id number] 1946 Unknown [id number] 2.16.8 [id number] 1946 Unknown [id number] 2.16.8 [id number] 1946 Unknown [id number] 2.16.8 [id number] 1946 Unknown [id number] 2.16.8 [id number] 1946 Unknown [id number] 2.16.8 [id number] 1945 Unknown [id number] 2.16.8 [id number] Private Health Insurance [id number] Social History Date Type Detail Facility Start: 04-10-2019 End: 10-02-2024 Never smoked tobacco (finding) [facility] Sex [facility]igned At [facility] Start: 08-14-2013 Sex Male (finding) [facility] Functional Status Date Assessment Result Facility 02-03-[address] [facility] 02-03-2023 Functional Status Standard Safet y ID band on, Allergy Band on, Call device within reach, Bed in low position, Wheels locked, Upper/Half-Length side-rails up, Phone within reach, personal items within reach [facility] 12-09-2021 Functional Status Awake, Up to bathroom [facility] 12-09-[address] [facility] 12-09-2021 Functional Status Room check performed [facility] 12-09-[address] [facility] 12-08-2021 Functional Status bilateral knee high [facility] 12-08-[address] [facility] 12-08-2021 Functional Status Dinner Percent 100 [facility] 12-08-2021 Functional Status Single level home [facility] 12-08-2021 Functional Status Ambulation in Room [facility] 12-08-[address] [facility] Mental Status Date Assessment Result Facility 02-03-2023 Mental Status Orientation Oriented x 4 [facility] 02-03-2023 Mental Status [facility] 12-09-2021 Mental Status Oriented x 4 [facility] 12-09-2021 Mental Status [facility] 12-09-2021 Mental Status [facility] Clinical Notes 12-08-2021 to 12-14-2023 Note Date & Type Note Facility 12-14-2023 Note ORIGINAL EXAMINATION: THREE XRAY VIEWS OF THE RIGHT FOOT 12/14/2023 11:25 am COMPARISON: None. HISTORY: ORDERING SYSTEM PROVIDED HISTORY: Reason for Exam: Injury to foot FINDINGS: No acute osseous, joint space, or soft tissue abnormality. Diffuse vascular calcifications. Achilles enthesitis. IMPRESSION: No acute process. I have personally reviewed the images of this examination and agree with the resident's findings and interpretation. Interpreted by: Brent Chowdhury MD Preliminary Report By: Shiva Clolins MD Electronically signed By Brent Chowdhury MD Dictated Date: 12/14/2023 2:32:14 PM Prelim Date: 12/14/2023 4:34:34 PM Sign Date: 12/14/2023 4:34:34 PM Ordering Provider: JIM MICHELE [facility] 02-03-2023 Note Discharge Instructions Thank you for allowing [facility] to assist you with your healthcare needs. The following is important discharge information regarding your hospital visit. Diagnosis from Today's Visit Cellulitis, Cellulitis Hand pain-swelling Swelling of hand What to Do Next Instructions from Your Care Team Wear splint as needed for comfort. Follow-up with Dr. Lamont Urbina orthopedics tomorrow by calling office today. Take Keflex and Bactrim as prescribed. Take Percocet only as needed for severe pain. Do not exceed recommended dose. Do not take before operating heavy machinery. Be careful in taking Tylenol as Percocet does contain some Tylenol do not exceed the recommended dose. Take short course of Motrin as recommended by Ortho as well. Return emergency department immediately if you develop worsening pain, swelling, numbness, decreased blood flow to your fingers, or any other care concern. No qualifying data available. Post Acute Orders No qualifying data available. You Need to Schedule the Following Appointments Follow Up with LAYNE MALDONADO DO, Orthopedic When Within 1-2 days Where: [address], [address] [place] [address]- [phone] Follow Up with Go to emergency room if symptoms worsen When Within 2-4 days Follow Up with JIM MICHELE MD When Within 2-4 days Where: [address] [facility] [place] [address]- Allergies benazepril (Cough) predniSONE (Unknown) Medications Please ask your primary doctor or pharmacist before taking any other medication not listed, including over the counter drugs, herbal medications, vitamins and or supplements as they may interact with your home medications. What How Much When Why Instructions Last Dose New acetaminophen-oxyCODONE (Percocet 5 mg-325 mg oral tablet) 1 tab(s) by mouth Every 6 hours as needed for for pain Cellulitis Duration: 3 Days Printed Prescription New cephalexin (cephalexin 500 mg oral capsule) 1 cap by mouth Four (4) times a day Duration: 7 Days Printed Prescription New ibuprofen (ibuprofen 800 mg oral tablet) 1 tab(s) by mouth Three (3) times a day as needed for as needed for pain Duration: 3 Days Printed Prescription New sulfamethoxazole-trimethoprim (Bactrim DS 800 mg-160 mg oral tablet) 1 tab(s) by mouth Two (2) times a day Duration: 7 Days Printed Prescription Unchanged albuterol (albuterol MDI (90 mcg/ inh) CFC free inhalation aerosol) 2 puff(s) by inhalation Every 4 hours as needed for as needed for wheezing Exercise-induced asthma Duration: 30 Days Unchanged albuterol (albuterol MDI (90 mcg/ inh) CFC free inhalation aerosol) 2 puff(s) by inhalation Every 4 hours as needed for as needed for wheezing Low back pain Unchanged amLODIPine (amLODIPine 5 mg oral tablet) 1 tab(s) by mouth Once a day Unchanged doxazosin (doxazosin 4 mg oral tablet) 1 tab(s) by mouth Once a day Unchanged dupilumab (Dupixent Pre-filled Pen 300 mg/ 2 mL subcutaneous solution) 300 Milligram Subcutaneous Every other week rotate injection sites Unchanged dutasteride (dutasteride 0.5 mg oral capsule) 1 cap by mouth Once a day Unchanged fluticasone nasal (Flonase 50 mcg/ inh nasal spray) 1 spray(s) each nostril Once a day as needed for Allergy symptoms Unchanged levothyroxine (levothyroxine 125 mcg (0.125 mg) oral tablet) 1 tab(s) by mouth Once a day Unchanged losartan (losartan 100 mg oral tablet) 1 tab(s) by mouth Once a day Duration: 90 Days Unchanged metFORMIN (metFORMIN 500 mg oral tablet (IR)) 1 tab(s) by mouth Two (2) times a day Duration: 90 Days Unchanged omeprazole (omeprazole 40 mg oral delayed release capsule) 1 tab by mouth Once a day Unchanged tiZANidine (tiZANidine 4 mg oral capsule) 1 cap by mouth Every 8 hours as needed for for muscle spasm Low back pain Unchanged tiZANidine (tiZANidine 4 mg oral tablet) 1 tab(s) by mouth Every 8 hours Neck pain Diabetes mellitus Duration: 14 Days Unchanged triamcinolone topical (triamcinolone 0.1% topical cream) 1 application Topical Two (2) times a day Please take this list to your next doctor s visit. Bring all medications you take, including over the counter medications, herbals and other supplements with you to your doctor s visit. Patients and families are reminded to discard old lists and to update any records with all medication providers or retail pharmacies. Education Materials Cellulitis Cellulitis is an infection of the deep layers of skin. A break in the skin, such as a cut or scratch, can let bacteria under the skin. If the bacteria get to deep layers of the skin, it can be serious. If not treated, cellulitis can get into the bloodstream and lymph nodes. The infection can then spread throughout the body. This causes serious illness. Cellulitis causes the affected skin to become red, swollen, warm, and sore. The reddened areas have a visible border. An open sore may leak fluid (pus). You may have a fever, chills, and pain. Cellulitis is treated with antibiotics taken for 7 to 10 days. An open sore may be cleaned and covered with cool wet gauze. Symptoms should get better 1 to 2 days after treatment is started. Make sure to take all the antibiotics for the full number of days until they are gone. Keep taking the medicine even if your symptoms go away. Home care Follow these tips: Limit the use of the part of your body with cellulitis. If the infection is on your leg, keep your leg raised while sitting. This will help to reduce swelling. Take all of the antibiotic medicine exactly as directed until it is gone. Do not miss any doses, especially during the first 7 days. Don t stop taking the medicine when your symptoms get better. Keep the affected area clean and dry. Wash your hands with soap and warm water before and after touching your skin. Anyone else who touches your skin should also wash his or her hands. Don't share towels. Follow-up care Follow up with your healthcare provider, or as advised. If your infection does not go away on the first antibiotic, your healthcare provider will prescribe a different one. When to seek medical advice Call your healthcare provider right away if any of these occur: Red areas that spread Swelling or pain that gets worse Fluid leaking from the skin (pus) Fever higher of 100.4 F (38.0 C) or higher after 2 days on antibiotics [id number] [employer]. [address] [place] [address]. All rights reserved. This information is not intended as a substitute for professional medical care. Always follow your healthcare professional's instructions. Additional Information VACCINATE! IT SAVES LIVES! Members of the community who have not yet received the COVID-19 vaccine and would like to receive it can visit one of [facility] vaccine clinics. There are many vaccine clinic locations within the [facility]. For locations and available times, please visit [email or web address] It is important to note that some COVID mobile vaccine clinics are held outdoors and may be canceled in rainy or stormy conditions. To learn more about pediatric vaccinations (ages 5-11), we invite you to visit the [facility] webpage. [email or web address] To learn more about the COVID-19 vaccine, we invite you to visit the CDC website for a list of frequently asked questions. https://www.cdc.gov/coronavirus/ 2019-ncov/vaccines/faq.html [facility] Patient Portal Access Instructions: Stay connected with your healthcare team and access your personal medical information anytime with the [employer] Patient Portal. If you would like a full copy of your medical records please contact the [facility] Medical Records Department Tuesday through Tuesday between 8a.m. and 4:30p.m. Please follow the directions below to access the portal: 1.Access the email account you provided upon registration to the [facility] of [place].2.Look for an invitation email from [facility].3.Open the email and access the invitation link: Accept Invitation to [facility]4.Fill in the required maier to create your account. Sign into [email or web address].[email or web address] with your username and password that you created in the above steps to stay up to date. You can then view a summary of results, a summary of your visits, and the ability to download your summaries to your computer or send the information securely to a physician. Remember that your healthcare information is confidential, so carefully consider who you will allow to register on the [facility] [employer] Patient Portal for access to your information. You can also access the [facility] Patient Portal on the [employer]. Simply click on Health Records under Health Data and then click on the [facility] logo. HOW TO SAFELY DISPOSE OF PRESCRIPTION MEDICATIONS Please use one of the following methods to safely dispose of your unused medications. 1.Use a drug disposal kit: the drug disposal pouch allows you to safely discard your old and unused drugs. Ask your nurse to give you one when you are discharged.2.Visit a local take-back location: Many local pharmacies and police departments have programs that collect old and unwanted prescription drugs. Call your local pharmacy or go to http://GramVaani.bluepulse/2H4Hx6c to find one close to you.3.Make use of household items: Use cat litter or old coffee grounds to dispose medications if other options are not available. Mix your drugs with these household products, seal them in an airtight container and throw it into the garbage. Call [facility]: [phone] to be sure your drugs can be disposed of in this way. Some medicines may require a different approach.4.Never flush your medications down the toilet. IF YOU HAVE BEEN PRESCRIBED AN OPIOIDS FOR PAIN If you have been prescribed an opioid (such as hydrocodone, oxycodone or morphine), it is critical to understand the possible side effects and risks of opioid pain medications. Even when taken as directed, opioids can have several side effects including: Tolerance, meaning you might need to take more of a medication for the same pain relief. Nausea, vomiting and/or constipation. Sleepiness, dizziness, dry mouth, confusion, depression or itching. Physical dependence, meaning you have withdrawal symptoms when a medication is stopped ? this can develop within a few days. KNOW YOUR RESPONSIBILITIES It is important to know exactly how much and how often to take the opioid pain medications you are prescribed. Never take opioids in higher amounts or more often than prescribed. Do not combine opioids with alcohol or other drugs that cause drowsiness, such as benzodiazepines, also known as benzos, including diazepam and alprazolam, muscle relaxants or sleep aids. Never sell or share prescription opioids. This is illegal. Store opioids in a secure place and out of reach of others (including children, family, friends and visitors). The last page(s) of this document has been signed and retained as a CHART COPY Signatures Patient Education Materials Cellulitis Skin Infection Medication Leaflets My discharge plan and instructions have been reviewed and explained to me and ILUISANA JOHN M understand my current condition and have read and understand these discharge instructions. I have received a written copy of the plan/instructions. If I have questions, I am aware that I should contact my doctor. Patient/Contract Writer Signature: Date/Time: Relationship to Patient: Witness Name/Signature: Date/Time: [facility] 02-03-2023 Hospital Discharg e instructions Patient Education 02/03/2023 08:55:24 Cellulitis Skin Infection Cellulitis Cellulitis is an infection of the deep layers of skin. A break in the skin, such as a cut or scratch, can let bacteria under the skin. If the bacteria get to deep layers of the skin, it can be serious. If not treated, cellulitis can get into the bloodstream and lymph nodes. The infection can then spread throughout the body. This causes serious illness. Cellulitis causes the affected skin to become red, swollen, warm, and sore. The reddened areas have a visible border. An open sore may leak fluid (pus). You may have a fever, chills, and pain. Cellulitis is treated with antibiotics taken for 7 to 10 days. An open sore may be cleaned and covered with cool wet gauze. Symptoms should get better 1 to 2 days after treatment is started. Make sure to take all the antibiotics for the full number of days until they are gone. Keep taking the medicine even if your symptoms go away. Home care Follow these tips: Limit the use of the part of your body with cellulitis. If the infection is on your leg, keep your leg raised while sitting. This will help to reduce swelling. Take all of the antibiotic medicine exactly as directed until it is gone. Do not miss any doses, especially during the first 7 days. Don t stop taking the medicine when your symptoms get better. Keep the affected area clean and dry. Wash your hands with soap and warm water before and after touching your skin. Anyone else who touches your skin should also wash his or her hands. Don't share towels. Follow-up care Follow up with your healthcare provider, or as advised. If your infection does not go away on the first antibiotic, your healthcare provider will prescribe a different one. When to seek medical advice Call your healthcare provider right away if any of these occur: Red areas that spread Swelling or pain that gets worse Fluid leaking from the skin (pus) Fever higher of 100.4 F (38.0 C) or higher after 2 days on antibiotics 8260-7593 [employer]. [address] [place] [address], [place] [address]. All rights reserved. This information is not intended as a substitute for professional medical care. Always follow your healthcare professional's instructions. Follow Up Care 02/03/2023 08:43:46 With:LAYNE MALDONADO DO, Orthopedic Address: [address] [place] [address], [address] [place] [phone] When:1-2 days With:Go to emergency room if symptoms worsen Address:Unknown When:2-4 days With:JIM MICHELE MD Address: [address] [facility] [address] [facility] [place] [address]- When:2-4 days [facility] 02-03-2023 Note ORIGINAL EXAMINATION: 3 x-ray views of the left hand and 3 x-ray views of the left wrist 02/03/2023 9:33 am COMPARISON: None. HISTORY: ORDERING SYSTEM PROVIDED HISTORY: Reason for Exam: pain, swelling FINDINGS: The study is compromised by patient positioning. Vascular calcification is evident. There is some dorsal soft tissue swelling at the hand, with no evidence for fracture or dislocation. Minor scattered degenerative changes are present. No additional contributory finding. IMPRESSION: Dorsal soft tissue swelling. Degenerative change. No acute fracture seen. Interpreted by: Brent Chowdhury MD Preliminary Report By: Brent Chowdhury MD Electronically signed By Brent Chowdhury MD Dictated Date: 02/03/2023 9:42:53 AM Prelim Date: 02/03/2023 9:44:00 AM Sign Date: 02/03/2023 9:44:00 AM Ordering Provider: CARINE FIERRO [facility] 12-09-2021 Note Discharge Instructions Thank you for allowing [facility] to assist you with your healthcare needs. The following is important discharge information regarding your hospital visit. Your Care Team [facility] Your Diagnosis Hyponatremia Weakness or fatigue Benign essential hypertension Diabetes mellitus Hypothyroidism Mixed hyperlipidemia GERD (gastroesophageal reflux disease) BPH with elevated PSA Alcohol use Exercise-induced asthma What to do next Instructions From Your Doctor You were admitted with a sodium of 126. It looks like you typically run about 130-133 so this was lower for you. The weakness you felt could be due to a combination of low sodium and low blood sugar. In looking back your, hemoglobin A1c was 5.1. We are concerned that the glipizide could be causing the hyponatremia and low blood sugar. We are giving you a script today for just Metformin since you were on a combination drug. Please follow-up with Dr. Michele for his recommendation on any follow-up on your hyponatremia and recommendations on your diabetes medications. You could have something called SIADH. Please watch your fluid intake and try to keep it at about 1800cc per day. Scheduled Follow-Up Appointments Appointment Type When With Where Contact InformationPC [facility] Hospital Follow-Up 12/15/2021 01:00 PM EDT JIM MICHELE MD [facility] Lab Check 12/24/2021 09:30 AM EDT JIM MICHELE MD [facility] Follow Up Appointments Follow Up with JIM MICHELE MD When 12/15/2021 01:00 PM EDT Why: Follow-up as scheduled Where: [address] [place] [address]- Follow Up with Homes Meds - Patient had home medication brought in. Please send home with patient. When The Following Activity and Diet Have Been Ordered for You Discharge Activity - Ordered -- NO activity restrictions, 12/09/21 10:12:00 EDT Discharge Diet - Ordered -- Type of Diet: Regular Diet, Calories Permitted: 1800 kcal, 12/09/21 10:12:00 EDT The Following Equipment Has Been Ordered for You No qualifying data available. The Following Treatments Have Been Ordered for You Discharge Labs No qualifying data available. Discharge Radiology No qualifying data available. Other Therapies No qualifying data available. Post Acute Orders No qualifying data available. Someone Will Contact You Regarding These Home Health Referrals No home referrals have been ordered for you. No one will call you. Allergies benazepril (Cough) predniSONE (Unknown) Medications Please ask your primary doctor or pharmacist before taking any other medication not listed, including over the counter drugs, herbal medications, vitamins and or supplements as they may interact with your home medications. What How Much When Why Instructions Last Dose New metFORMIN (metFORMIN 500 mg oral tablet (IR)) 1 tab(s) by mouth Two (2) times a day Pickup at [id number] 12/09/21 9am Unchanged albuterol (albuterol MDI (90 mcg/ inh) CFC free inhalation aerosol) 2 puff(s) by inhalation Every 4 hours as needed for as needed for wheezing Exercise-induced asthma Duration: 30 Days not given in hospital Unchanged amLODIPine (amLODIPine 10 mg oral tablet) 1 tab(s) by mouth Once a day 12/09/21 9am Unchanged doxazosin (doxazosin 4 mg oral tablet) 1 tab(s) by mouth Once a day Duration: 90 Days 12/09/21 9am Unchanged dutasteride (dutasteride 0.5 mg oral capsule) 1 cap by mouth Once a day not given in hospital Unchanged fluticasone nasal (Flonase 50 mcg/ inh nasal spray) 1 spray(s) each nostril Once a day as needed for Allergy symptoms not given in hospital Unchanged levothyroxine (levothyroxine 125 mcg (0.125 mg) oral tablet) 1 tab(s) by mouth Once a day 12/09/21 6am Unchanged losartan (losartan 100 mg oral tablet) 1 tab(s) by mouth Once a day Duration: 90 Days 12/09/21 9am Unchanged naproxen (naproxen 500 mg oral tablet) 1 tab(s) by mouth Two (2) times a day not given in hospital Unchanged omeprazole (omeprazole 40 mg oral delayed release capsule) 1 cap by mouth Once a day 12/09/21 6am Pharmacy Information [id number]: [address] [place] [address] [id number] [phone] What How Much When Comments Stop Taking glipizide-metformin (glipizide-metformin 5 mg-500 mg oral tablet) 1 tab(s) by mouth Two (2) times a day Please take this list to your next doctor s visit. Bring all medications you take, including over the counter medications, herbals and other supplements with you to your doctor s visit. Patients and families are reminded to discard old lists and to update any records with all medication providers or retail pharmacies. Education Materials Hyponatremia Hyponatremia means low sodium levels in the blood. This condition most often occurs after prolonged vomiting or diarrhea, which causes your body to lose too much water and sodium. It can also result from drinking excess amounts of water or the use of diuretics (water pills). Rarely, it can be associated with disorders of your endocrine system, as side effects of illicit drug use (ecstasy), as a complication of some cancers especially small cell lung cancer, or as a complication of renal and liver disease or heart failure. Mild hyponatremia causes no symptoms. It is only discovered with a blood test. As sodium levels in the blood decreases, symptoms begin to appear. This includes weakness, confusion, muscle cramping and seizures. Home care Reduce your daily water intake until the problem is corrected. If you have been taking diuretics, you may be asked to stop taking them for a short time. If you are having symptoms of weakness or confusion, do not drive or operate dangerous machinery until symptoms resolve. If your sodium levels are too low to be managed at home with the above recommendations, you will be asked to go to the hospital to have your sodium replaced through your vein. Follow-up care Follow up with your healthcare provider for a repeat blood test within the next week, or as advised. When to seek medical advice Call your healthcare provider if any of the following occur: Increasing weakness Dizziness Irregular heartbeat, extra beats or very fast heart rate Increasing confusion Fainting or loss of consciousness Seizure [id number] [employer]. [address] [place] [address]. All rights reserved. This information is not intended as a substitute for professional medical care. Always follow your healthcare professional's instructions. Additional Information VACCINATE! IT SAVES LIVES! Members of the community who have not yet received the COVID-19 vaccine and would like to receive it can visit one of [facility] vaccine clinics. There are many vaccine clinic locations within the [facility]. For locations and available times, please visit [email or web address] [email or web address] It is important to note that some COVID mobile vaccine clinics are held outdoors and may be canceled in rainy or stormy conditions. To learn more about pediatric vaccinations (ages 5-11), we invite you to visit the [facility] webpage. [email or web address] [email or web address] To learn more about the COVID-19 vaccine, we invite you to visit the [facility] website for a list of frequently asked questions. [email or web address] [facility] Patient Portal Access Instructions: Stay connected with your healthcare team and access your personal medical information anytime with the [facility] Patient Portal.If you would like a full copy of your medical records, please contact the [facility] Medical Records Department, Tuesday through Tuesday between 8a.m. and 4:30p.m. Please follow the directions below to access the portal: 1.Access the email account you provided upon registration to the [facility] [place].2.Look for an invitation email from [facility].3.Open the email and access the invitation link: Accept Invitation to [facility] [employer]4.Fill in the required maier to create your account. Sign into [email or web address] with your username and password that you created in the above steps to stay up to date. You can then view a summary of results, a summary of your visits, and the ability to download your summaries to your computer or send the information securely to a physician. Remember that your healthcare information is confidential, so carefully consider who you will allow to register on the [facility] Patient Portal for access to your information. You can also access the [employer] Patient Portal on the [employer]. Simply click on Health Records under Health Data and then click on the [employer] logo. HOW TO SAFELY DISPOSE OF PRESCRIPTION MEDICATIONS Please use one of the following methods to safely dispose of your unused medications. 1.Use a drug disposal kit: the drug disposal pouch allows you to safely discard your old and unused drugs. Ask your nurse to give you one when you are discharged.2.Visit a local take-back location: Many local pharmacies and police departments have programs that collect old and unwanted prescription drugs. Call your local pharmacy or go to http://GramVaani.bluepulse/3F5Wb2b to find one close to you.3.Make use of household items: Use cat litter or old coffee grounds to dispose medications if other options are not available. Mix your drugs with these household products, seal them in an airtight container and throw it into the garbage. Call [facility]: [phone] to be sure your drugs can be disposed of in this way. Some medicines may require a different approach.4.Never flush your medications down the toilet. IF YOU HAVE BEEN PRESCRIBED AN OPIOID FOR PAIN If you have been prescribed an opioid (such as hydrocodone, oxycodone or morphine), it is critical to understand the possible side effects and risks of opioid pain medications. Even when taken as directed, opioids can have several side effects including: Tolerance, meaning you might need to take more of a medication for the same pain relief. Nausea, vomiting and/or constipation. Sleepiness, dizziness, dry mouth, confusion, depression or itching. Physical dependence, meaning you have withdrawal symptoms when a medication is stopped, can develop within a few days. KNOW YOUR RESPONSIBILITIES It is important to know exactly how much and how often to take the opioid pain medications you are prescribed. Never take opioids in higher amounts or more often than prescribed. Do not combine opioids with alcohol or other drugs that cause drowsiness, such as benzodiazepines, also known as benzos, including diazepam and alprazolam, muscle relaxants or sleep aids. Never sell or share prescription opioids. This is illegal. Store opioids in a secure place and out of reach of others (including children, family, friends and visitors). The last page of this document has been signed and retained as a CHART COPY. Signatures Patient Education Materials Hyponatremia Medication Leaflets My discharge plan and instructions have been reviewed and explained to me and ILUISANA JOHN M understand my current condition and have read and understand these discharge instructions. I have received a written copy of the plan/instructions. If I have questions, I am aware that I should contact my doctor. Patient/Contract Writer Signature: Date/Time: Relationship to Patient: Witness Name/Signature: Date/Time: [facility] 12-08-2021 Evaluation + Plan note Extrac katharine from: Title:History and Physical Author:CRUZ MOORE APRN-LABOURERS Date:12/08/21 1. Hyponatremia 1. Hyponatremia, likely secondary to poor intake yesterday. -Patient administered 1 liter of NS in the ED without improvement in sodium level, 126. -Start 1800 cc fluid restriction. -Check urine sodium, urine osmolality, and serum osmolality. -Check am cortisol and TSH in the am. -Repeat BMP in the am. 2. Weakness, likely secondary to hyponatremia and low glucose. -Monitor for improvement with improvement in sodium. -Consider PT if no improvement. 3. Hypertension, chronic stable. -Continue current home medications. 4. Type 2 diabetes mellitus. -Blood glucose checks before meals and at bedtime. -Cover with sliding scale insulin. -Start diabetic diet. -Continue current home medications. 5. Hypothyroidism -Continue Levothyroxine at current dose. 6. Hyperlipidemia -Not currently on medication. 7. GERD -Continue Omeprazole at current dose. 8. BPH with elevated PSA -Continue current home medications. 9. Alcohol use. -Start CIWA protocol with Ativan as needed for withdrawal. -Start Folic acid 1 mg PO daily. -Start Thiamine 100 mg PO daily. DVT prophylaxis with SCDs. Patient wishes to be a FULL CODE. This case was discussed with collaborating physician, Dr. Nicolasa Rahman. Future Appointments Appointment Date:12/15/2021 01:00:00 PM Scheduled Provider:JIM MICHELE MD Location:[facility] Appointment Type:[facility] Hospital Follow-Up Appointment Date:12/24/2021 09:30:00 AM Scheduled Provider:JIM MICHELE MD Location:[facility] Appointment Type:[facility] Lab Check Future Scheduled Tests Laboratory* Thyroid Stimulating Hormone 06/25/21 * Free T4 06/25/21 * A1C Hemoglobin 12/23/21 * Lipid Profile 12/23/21 * Complete Metabolic Panel 12/23/21 [facility] 07-26-2022 Hospital Discharge instructions Patient Education 12/08/2021 09:48:10 Hyponatremia Hyponatremia Hyponatremia means low sodium levels in the blood. This condition most often occurs after prolongedvomiting or diarrhea, which causes your body to lose too much water and sodium. It can also result from drinking excess amounts of water or the use of diuretics (water pills). Rarely, it can be associated with disorders of your endocrine system, as side effects of illicit drug use (ecstasy), as a complication of some cancers especially small cell lung cancer, or as a complication of renal and liver disease or heart failure. Mild hyponatremia causes no symptoms. It is only discovered with a blood test. As sodium levels in the blood decreases, symptoms begin to appear. This includes weakness, confusion, muscle cramping and seizures. Home care Reduce your daily water intake until the problem is corrected. If you have been taking diuretics, you may be asked to stop taking them for a short time. If you are having symptoms of weakness or confusion, do not drive or operate dangerous machinery until symptoms resolve. If your sodium levels are too low to be managed at home with the above recommendations, you will beasked to go to the hospital to have your sodium replaced through your vein. Follow-up care Follow up with your healthcare provider for a repeat blood test within the next week, or as advised. When to seek medical advice Call your healthcare provider if any of the following occur: Increasing weakness Dizziness Irregular heartbeat, extra beats or very fast heart rate Increasing confusion Fainting or loss of consciousness Seizure [id number] [employer]. [address] [place] [address]. All rights reserved. This information is not intended as a substitute for professional medical care. Always follow yourhealthcare professional's instructions. Follow Up Care 12/08/2021 05:12:15 With:Homes Meds - Patient had home medication brought in. Please send home with patient. Address:Unknown When: Unknown With:JIM MICHELE MD Address: [address] [facility] [address] [facility] [place] [address]- When:12/15/2021 13:00:00 Comments:Follow-up as scheduled [facility] 07-26-2022 Note Date of Service 12/08/2021 Chief Complaint Patient woke up this morning with weakness and felt that he couldn't get up. Squad noticed blood sugar of 43. History of Present Illness Patient is a 76-year-old male, who follows with Dr. Jim Michele with a past medical history significant for hypertension, hyperlipidemia, hypothyroidism, and type 2 diabetes, [facility] of [facility]. Patient states that he was in his usual state of health yesterday throughout the day. In the evening, he adds that he just did not feel like eating dinner and probably was not drinking enough water. He ended up eating only a tomato before going to bed. This morning he woke up feeling very weak and could not get out of bed. The squad was called and found his blood glucose to be 43. Patient was given D50 by the squad and b rought into the ED for evaluation. Patient denies any fever, chills, cough, shortness of breath, chest pain, abdominal pain, nausea, dysuria or urinary frequency. Patient does admit to drinking 2-3 glasses of wine and 2-3 liquor beverages per day. In the emergency department, CBC was unremarkable. BMP significant for glucose 100, sodium 126, chloride 96, and creatinine 1.37. In reviewing labs for the past 3 years, his creatinine is typically in the range of 1.20 and sodium 130- 133. Urinalysis was unremarkable. Patient did feel better after receiving IV fluids but a recheck of his BMP revealed the sodium to be unchanged at 126. Patient is now agreeable to being admitted for observation for hyponatremia. He will be admitted to medical surgical unit for further observation. We will hold off on IV fluids for now and start a fluid restriction of 1800cc per day. We will send urine for urine osmolality, urine sodium and check serum osmolality. We will check TSH and am cortisol level. We will start alcohol withdrawal precautions. Repeat CBC and BMP in the am. Review of Systems Review of Systems: Reviewed in detail, including general health, HEENT, cardiovascular, respiratory, gastrointestinal, genitourinary, endocrine, musculoskeletal, neurologic, vascular, skin, and psychiatric. All are negative except for those listed in the History of Present Illness. Physical Exam Vitals and Measurements T: 36.1 C (Oral) HR: 87 RR: 18 BP: 144/64 SpO2: 97% HT: 177.8 cm No qualifying data available. General: No acute distress. Patient is alert and appropriate. Skin: No rash. Skin is warm, dry and intact. HEENT: Head is normocephalic and atraumatic. No lesions. Pupils equal in size. Extraocular movements within normal limits. Nose: No septal deviation. Mouth: Oropharynx mucosa is without lesion. Neck: Supple. No lymphadenopathy, thyromegaly noted. Lungs: Bilaterally clear but diminished breath sounds in the posterior bases with no crepitation orwheeze. Unlabored. Cardiovascular: Heart is regular rhythm, S1S2. No extra-audible heart tones. Abdomen: Abdomen is soft, nontender. Bowel sounds positive all four quadrants. Extremities: No clubbing, cyanosis or edema. Peripheral pulses palpable. No calf tenderness. Adequate peripheral circulation. Neurological: The patient is awake, oriented to time, people and place. Following simple commands, moving all extremities. Lab Results 12/08 09:02 Glucose Level: 156 H Sodium Level: 126 L Potassium Level: 4.8 BUN: 10 Creatinine Lvl (s): 1.37 H 12/08 06:11 WBC: 6.1 Hgb: 14.9 Hct: 43.0 Platelet: 276 Neutrophil %: 70.8 Glucose Level: 102 Sodium Level: 126 L Potassium Level: 4.7 BUN: 11 Creatinine Lvl (s): 1.31 H Assessment/Plan 1. Hyponatremia 1. Hyponatremia, likely secondary to poor intake yesterday. -Patient administered 1 liter of NS in the ED without improvement in sodium level, 126. -Start 1800 cc fluid restriction. -Check urine sodium, urine osmolality, and serum osmolality. -Check am cortisol and TSH in the am. -Repeat BMP in the am. 2. Weakness, likely secondary to hyponatremia and low glucose. -Monitor for improvement with improvement in sodium. -Consider PT if no improvement. 3. Hypertension, chronic stable. -Continue current home medications. 4. Type 2 diabetes mellitus. -Blood glucose checks before meals and at bedtime. -Cover with sliding scale insulin. -Start diabetic diet. -Continue current home medications. 5. Hypothyroidism -Continue Levothyroxine at current dose. 6. Hyperlipidemia -Not currently on medication. 7. GERD -Continue Omeprazole at current dose. 8. BPH with elevated PSA -Continue current home medications. 9. Alcohol use. -Start CIWA protocol with Ativan as needed for withdrawal. -Start Folic acid 1 mg PO daily. -Start Thiamine 100 mg PO daily. DVT prophylaxis with SCDs. Patient wishes to be a FULL CODE. This case was discussed with collaborating physician, Dr. Nicolasa Rahman. Problem List/Past Medical History Ongoing Benign essential hypertension Diabetes mellitus Elevated PSA GERD (gastroesophageal reflux disease) Hypothyroidism Mixed hyperlipidemia Piriformis syndrome Historical No qualifying data Procedure/Surgical History Biopsy of prostate: 10/17/14 Cholecystectomy: 2002 Medications Home Medications (11) Active albuterol MDI (90 mcg/inh) CFC free inhalation aerosol 2 puff(s), PRN, Inhalation, q4h amLODIPine 10 mg oral tablet 10 mg = 1 tab(s), Oral, qDay doxazosin 4 mg oral tablet 4 mg = 1 tab(s), Oral, qDay dutasteride 0.5 mg oral capsule 0.5 mg = 1 cap(s), Oral, qDay Flonase 50 mcg/inh nasal spray 1 spray(s), Nostril, each, qAM glipizide-metformin 5 mg-500 mg oral tablet 1 tab(s), Oral, BID levothyroxine 125 mcg (0.125 mg) oral tablet 125 mcg = 1 tab(s), Oral, qDay losartan 100 mg oral tablet 100 mg = 1 tab(s), Oral, qDay naproxen 500 mg oral tablet 500 mg = 1 tab(s), Oral, BID omeprazole 40 mg oral delayed release capsule 40 mg = 1 cap(s), Oral, qDay tamsulosin 0.4 mg oral capsule 0.4 mg = 1 cap(s), Oral, qDay Allergies benazepril (Cough) predniSONE (Unknown) Social History Alcohol Use: Current. Type: Beer, Wine. 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 Myocardial infarction: Father. Suicide: Mother. Immunizations pneumococcal 23-valent vaccine(Pneumovax: 0 unknown unit (08/27/11) SARS-CoV-2 (COVID-19) mRNA-1273 vaccine: 50 mcg (04/10/21) SARS-CoV-2 (COVID-19) mRNA-1273 vaccine: 100 mcg (07/31/20) SARS-CoV-2 (COVID-19) mRNA-1273 vaccine: 100 mcg (07/03/20) tetanus/diphth/pertuss (Tdap) adult/adol: 0 unknown unit (08/29/13) Code Status Code Status - Ordered -- 12/08/21 9:58:00 EDT, Full Code, Constant Order Digitally Signed by CRUZ MOORE APRN-ALECIA on 12/08/2021 11:38 AM [facility] [id number] Note Discharge Instructions Thank you for allowing [facility] to assist you with your healthcare needs. The following is importantdischarge information regarding your hospital visit. Diagnosis from Today's Visit Hyponatremia Weakness or fatigue What to Do Next Instructions from Your Care Team No qualifying data available. Post Acute Orders No qualifying data available. You Need to Schedule the Following Appointments Follow Up with JIM MICHELE MD When Within 2-4 days Where: [address] [facility] [place] [address]- Allergies benazepril (Cough) predniSONE (Unknown) Medications Please ask your primary doctor or pharmacist before taking any other medication not listed, including over the counter drugs, herbal medications, vitamins and or supplements as they may interact withyour home medications. What How Much When Why Instructions Last Dose Unchanged albuterol (albuterol MDI (90 mcg/ inh) CFC free inhalation aerosol) 2 puff(s) by inhalation Every 4 hours as needed for as needed for wheezing Exercise-induced asthma Duration: 30 Days Unchanged amLODIPine (amLODIPine 10 mg oral tablet) 1 tab(s) by mouth Once a day Unchanged doxazosin (doxazosin 4 mg oral tablet) 1 tab(s) by mouth Once a day Duration: 90 Days Unchanged dutasteride (dutasteride 0.5 mg oral capsule) 1 cap by mouth Once a day Unchanged fluticasone nasal (Flonase 50 mcg/ inh nasal spray) 1 spray(s) each nostril Once a day (in the morning) Unchanged glipizide-metformin (glipizide-metformin 5 mg-500 mg oral tablet) 1 tab(s) by mouth Two (2) times a day Unchanged levothyroxine (levothyroxine 125 mcg (0.125 mg) oral tablet) 1 tab(s) by mouth Once a day Unchanged losartan (losartan 100 mg oral tablet) 1 tab(s) by mouth Once a day Duration: 90 Days Unchanged naproxen (naproxen 500 mg oral tablet) 1 tab(s) by mouth Two (2) times a day Unchanged omeprazole (omeprazole 40 mg oral delayed release capsule) 1 cap by mouth Once a day Unchanged tamsulosin (tamsulosin 0.4 mg oral capsule) 1 cap by mouth Once a day Please take this list to your next doctor s visit. Bring all medications you take, including over the counter medications, herbals and other supplements with you to your doctor s visit. Patients and families are reminded to discard old lists and to update any records with all medication providers or retail pharmacies. Education Materials Hyponatremia Hyponatremia means low sodium levels in the blood. This condition most often occurs after prolongedvomiting or diarrhea, which causes your body to lose too much water and sodium. It can also result from drinking excess amounts of water or the use of diuretics (water pills). Rarely, it can be associated with disorders of your endocrine system, as side effects of illicit drug use (ecstasy), as a complication of some cancers especially small cell lung cancer, or as a complication of renal and liver disease or heart failure. Mild hyponatremia causes no symptoms. It is only discovered with a blood test. As sodium levels in the blood decreases, symptoms begin to appear. This includes weakness, confusion, muscle cramping and seizures. Home care Reduce your daily water intake until the problem is corrected. If you have been taking diuretics, you may be asked to stop taking them for a short time. If you are having symptoms of weakness or confusion, do not drive or operate dangerous machinery until symptoms resolve. If your sodium levels are too low to be managed at home with the above recommendations, you will beasked to go to the hospital to have your sodium replaced through your vein. Follow-up care Follow up with your healthcare provider for a repeat blood test within the next week, or as advised. When to seek medical advice Call your healthcare provider if any of the following occur: Increasing weakness Dizziness Irregular heartbeat, extra beats or very fast heart rate Increasing confusion Fainting or loss of consciousness Seizure [id number] [employer]. [address] [place] [address], [place] [address]. All rights reserved. This information is not intended as a substitute for professional medical care. Always follow yourhealthcare professional's instructions. Additional Information VACCINATE! IT SAVES LIVES! Members of the community who have not yet received the COVID-19 vaccine and would like to receive it can visit one of [facility] vaccine clinics. There are many vaccine clinic locations within the [facility]. For locations and available times, please visit [email or web address]. It is important to note that some COVID mobile vaccine clinics are held outdoors and may be canceled in rainy orstormy conditions. To learn more about pediatric vaccinations (ages 5-11), we invite you to visit the [facility] webpage. [email or web address] learn more about the COVID-19 vaccine, we invite you to visit the [facility] website for a list of frequently asked questions. [email or web address] [facility] Patient Portal Access Instructions: Stay connected with your healthcare team and access your personal medical information anytime with the [facility] Patient Portal. If you would like a full copy of your medical records please contact the [facility] Medical Records Department Tuesday through Tuesday between 8a.m. and 4:30p.m. Please follow the directions below to access the portal: 1.Access the email account you provided upon registration to the hospital.2.Look for an invitation email from [facility].3.Open the email and access the invitation link: Accept Invitation to [facility]4.Fill in the required maier to create your account. Sign into www.[email or web address] with your username and password that you created in the above steps to stay up to date. You can then view a summary of results, a summary of your visits, and the ability to download your summaries to your computer or send the information securely to a physician. Remember that your healthcare information is confidential, so carefully consider who you will allow to register on the [facility] Patient Portal for access to your information. You can also access the [facility] Patient Portal on the [employer] sarah. Simply click on Health Records under [facility] and then click on the [employer] logo. HOW TO SAFELY DISPOSE OF PRESCRIPTION MEDICATIONS Please use one of the following methods to safely dispose of your unused medications. 1.Use a drug disposal kit: the drug disposal pouch allows you to safely discard your old and unuseddrugs. Ask your nurse to give you one when you are discharged.2.Visit a local take-back location: Many local pharmacies and police departments have programs that collect old and unwanted prescriptiondrugs. Call your local pharmacy or go to http://[employer].bluepulse/4B7Kw9x to find one close to you.3.Make use of household items: Use cat litter or old coffee grounds to dispose medications if other options arenot available. Mix your drugs with these household products, seal them in an airtight container andthrow it into the garbage. Call [facility]: [phone] to be sure your drugs can be disposed of in this way. Some medicines may require a different approach.4.Never flush your medications down the toilet. IF YOU HAVE BEEN PRESCRIBED AN OPIOIDS FOR PAIN If you have been prescribed an opioid (such as hydrocodone, oxycodone or morphine), it is critical to understand the possible side effects and risks of opioid pain medications. Even when taken as directed, opioids can have several side effects including: Tolerance, meaning you might need to take more of a medication for the same pain relief. Nausea, vomiting and/or constipation. Sleepiness, dizziness, dry mouth, confusion, depression or itching. Physical dependence, meaning you have withdrawal symptoms when a medication is stopped ? this can develop within a few days. KNOW YOUR RESPONSIBILITIES It is important to know exactly how much and how often to take the opioid pain medications you are prescribed. Never take opioids in higher amounts or more often than prescribed. Do not combine opioids with alcohol or other drugs that cause drowsiness, such as benzodiazepines, also known as benzos,including diazepam and alprazolam, muscle relaxants or sleep aids. Never sell or share prescriptionopioids. This is illegal. Store opioids in a secure place and out of reach of others (including children, family, friends and visitors). The last page(s) of this document has been signed and retained as a CHART COPY Signatures Patient Education Materials Hyponatremia Medication Leaflets My discharge plan and instructions have been reviewed and explained to me and ILUISANA JOHN M understand my current condition and have read and understand these discharge instructions. I have received a written copy of the plan/instructions. If I have questions, I am aware that I should contact my doctor. Patient/Contract Writer Signature: Date/Time: Relationship to Patient: Witness Name/Signature: [facility]ments Appointment Date:03/26/2021 09:45:00 AM Scheduled Provider:JIM MICHELE MD Location:[facility] Appointment Type:PC OV [facility] Evaluation + Plan note Future Appointments Appointment Date:06/25/2021 08:30:00 AM Scheduled Provider:JIM MICHELE MD Location:[facility] Appointment Type:PC OV [facility] Evaluation + Plan note Future Appointments Appointment Date:12/24/2021 09:30:00 AM Scheduled Provider:JIM MICHELE MD Location:[facility] Appointment Type:PC OV Lab Check Future Scheduled Tests Laboratory* Thyroid Stimulating Hormone 06/25/21 * Free T4 06/25/21 * A1C Hemoglobin 12/23/21 * Lipid Profile 12/23/21 * Complete Metabolic Panel 12/23/21 [facility] Evaluation + Plan note Future Appointments Appointment Date:12/24/2021 09:30:00 AM Scheduled Provider:JIM MICHELE MD Location:[facility] Appointment Type:PC OV Lab Check [facility] Evaluation + Plan note Future Appointments Appointment Date:03/31/2022 10:30:00 AM Scheduled Provider:JIM MICHELE MD Location:[facility] Appointment Type:PC OV [facility] Evaluation + Plan note Future Appointments Appointment Date:07/15/2022 10:30:00 AM Scheduled Provider:JIM MICHELE MD Location:[facility] Appointment Type:PC OV Appointment Date:09/22/2022 08:45:00 AM Scheduled Provider: Location:[facility] Appointment Type:PC Nurse Lab Appointment Date:09/30/2022 08:00:00 AM Scheduled Provider:JIM MICHELE MD Location:[facility] Appointment Type:PC OV Future Scheduled Tests Laboratory* Thyroid Stimulating Hormone 03/31/22 * Free T4 03/31/22 * A1C Hemoglobin 09/28/22 * Lipid Profile 09/28/22 * Complete Metabolic Panel 09/28/22 [facility] Evaluation + Plan note Future Appointments Appointment Date:09/22/2022 08:45:00 AM Scheduled Provider: Location:[facility] Appointment Type:PC Nurse Lab Appointment Date:09/30/2022 08:00:00 AM Scheduled Provider:JIM MICHELE MD Location:[facility] Appointment Type:PC OV Future Scheduled Tests Laboratory* Thyroid Stimulating Hormone 03/31/22 * Free T4 03/31/22 * A1C Hemoglobin 09/28/22 * Lipid Profile 09/28/22 * Complete Metabolic Panel 09/28/22 [facility] Evaluation + Plan note Future Appointments Appointment Date:09/30/2022 08:00:00 AM Scheduled Provider:JIM MICHELE MD Location:[facility] Appointment Type:PC OV [facility] Oculevealuation + Plan note Future Appointments Appointment Date:02/08/2023 01:30:00 PM Scheduled Provider:JIM MICHELE MD Location:[facility] Appointment Type:PC OV Appointment Date:03/23/2023 09:15:00 AM Scheduled Provider: Location:[facility] Appointment Type:PC Nurse Lab Appointment Date:03/31/2023 08:30:00 AM Scheduled Provider:JIM MICHELE MD Location:[facility] Appointment Type:PC OV Future Scheduled Tests Laboratory* Thyroid Stimulating Hormone 09/30/22 * Free T4 09/30/22 * A1C Hemoglobin 04/02/23 * Lipid Profile 04/02/23 * Albumin/Creatinine Ratio, Random Urine 09/30/22 * Complete Metabolic Panel 04/02/23 [facility] Oculevealuation + Plan note Future Appointments Appointment Date:03/31/2023 08:30:00 AM Scheduled Provider:JIM MICHELE MD Location:[facility] Appointment Type:PC OV Future Scheduled Tests Laboratory* Thyroid Stimulating Hormone 09/30/22 * Free T4 09/30/22 * Albumin/Creatinine Ratio, Random Urine 09/30/22 [facility] Evaluation + Plan note Future Appointments Appointment Date:10/14/2023 03:00:00 PM Scheduled Provider:JIM MICHELE MD Location:[facility] Appointment Type:PC OV Future Scheduled Tests Laboratory* Thyroid Stimulating Hormone 09/29/23 * Free T4 09/29/23 * Albumin/Creatinine Ratio, Random Urine 09/30/22 [facility] Oculevealuation + Plan note Future Appointments Appointment Date:03/28/2024 09:00:00 AM Scheduled Provider: Location:[facility] Appointment Type:PC Nurse Lab Appointment Date:04/04/2024 09:00:00 AM Scheduled Provider:JIM MICHELE MD Location:[facility] Appointment Type:PC OV [facility] Oculevealuation + Plan note Future Appointments Appointment Date:04/04/2024 09:00:00 AM Scheduled Provider:JIM MICHELE MD Location:[facility] Appointment Type:PC OV [facility] Evaluation + Plan note Future Appointments Appointment Date:10/02/2024 09:30:00 AM Scheduled Provider:JIM MICHELE MD Location:[facility] Appointment Type:PC OV [facility] Oculevealuation + Plan note Future Appointments Appointment Date:12/24/2024 09:00:00 AM Scheduled Provider: Location:[facility] Appointment Type:PC Nurse Lab Appointment Date:01/01/2025 09:30:00 AM Scheduled Provider:JIM MICHELE MD Location:[facility] Appointment Type:PC OV Future Scheduled Tests Laboratory* Thyroid Stimulating Hormone 01/02/25 * Free T4 10/02/24 * A1C Hemoglobin 01/02/25 * Complete Blood Count 10/02/24 * Lipid Profile 01/02/25 * Complete Metabolic Panel 01/02/25 [facility] course Narrative No data available for this section [facility] Discharge instructions No data available for this section [facility] Progress note No data available for this section [facility] Summary Purpose Family History No Family History Records Found No data available for this section No data available for this section No data available for this section No data available for this section No data available for this section No Family History Records Found No data available for this section No data available for this section No data available for this section No Family History Records Found Advance Directives No Advanced Directives Records FoundNo Advanced Directives Records FoundNo Advanced Directives Records Found Additional Source Comments (unrecognized sect ion and content) No Status Records FoundNo Status Records FoundNo Status Records Found INFORMATION SOURCE (unrecogn ized section and content) DATE CREATED AUTHOR 11/08/2017 [facility] DATE CREATED AUTHOR AUTHOR'S ORGANIZ ATION 12/16/2023 [facility] ([place]) DATE CREATED AUTHOR AUTHOR'S ORGANIZ ATION 10/18/2024 [facility] Care Team (unrecognized sect ion and content) Personnel Name: JIM MICHELE MD Address: [address] [place] [address]- Care Team Personnel Name: JIM MICHELE MD Position: P4 Physician - Primary Care Member Role: Primary Care Physician Address: Address: [address] [facility] [place] [address]- Care Team Related Persons Name: FRANTZ LIEBERMAN Name: FRANTZ LIEBERMAN Care Team Personnel Name: JIM MICHELE MD Position: P4 Physician - Primary Care Member Role: Primary Care Physician Address: Address: [address] [place] [address]- Care Team Related Persons Name: FRANTZ LIEBERMAN Name: FRANTZ LIEBERMAN Care Team Personnel Name: JIM MICHELE MD Position: P4 Physician - Primary Care Member Role: Primary Care Physician Address: Address: [address] [place] [address]- Name: CARINE FIERRO DO Position: ED Physician Member Role: Attending Physician Address: Address: [address] Name: Onel Travis RN Position: ED RN Member Role: ED RN Care Team Related Persons Name: FRANTZ LIEBERMAN Name: FRANTZ LIEBERMAN Care Team Personnel Name: JIM MICHELE MD Position: P4 Physician - Primary Care Member Role: Primary Care Physician Address: Address[address] [id number]- Care Team Related Persons Name: FRANTZ LIEBERMAN Name: FRANTZ LIEBERMAN Care Team Personnel Name: JIM MICHELE MD Position: P4 Physician - Primary Care Member Role: Primary Care Physician Address: Address: [address] [place] [address]- Care Team Related Persons Name: FRANTZ LIEBERMAN Name: FRANTZ LIEBERMAN Care Team Personnel Name: JIM MICHELE MD Position: P4 Physician - Primary Care Member Role: Primary Care Physician Address: Address: [address] [place] [id number]- Care Team Related Persons Name: FARNTZ LIEBERMAN Name: FRANTZ LIEBERMAN Care Team Personnel Name: JIM MICHELE MD Position: P4 Physician - Primary Care Member Role: Primary Care Physician Address: Address: [address] [place] [id number]- Care Team Related Persons Name: FRANTZ LIEBERMAN Name: FRANTZ LIEBERMAN Care Team Personnel Name: JIM MICHELE MD Position: P4 Physician - Primary Care Member Role: Primary Care Physician [facility]: [facility] [facility] [address] [facility] [place] [address] [place] Care Team Related Persons Name: FRANTZ LIEBERMAN Name: FRANTZ LIEBERMAN Care Team Personnel Name: JIM MICHELE MD Position: P4 Physician - Primary Care Member Role: Primary Care Physician Address: [address] Telecom: Care Team Related Persons Name: FRANTZ LIEBERMAN Care Team Personnel Name: JIM MICHELE MD Position: P4 Physician - Primary Care Member Role: Primary Care Physician Address: [address] [place] [address] Telecom: Care Team Related Persons Name: FRANTZ LIEBERMAN Care Team (unrecognized sect ion and content) Care Team Personnel Name: JIM MICHELE MD Position: P4 Physician - Primary Care Med Service: Active Provider Member Role: Primary Care Physician Address: Address: [address] [place] [address] Care Team Related Persons Name: FRANTZ LIEBERMAN Name: FRANTZ LIEBERMAN Care Team Personnel Name: JIM MICHELE MD Position: P4 Physician - Primary Care Med Service: Active Provider Member Role: Primary Care Physician Address: Address: [address] Care Team Related Persons Name: FRANTZ LIEBERMAN Name: FRANTZ LIEBERMAN Care Team Personnel Name: JIM MICHELE MD Position: P4 Physician - Primary Care Member Role: Primary Care Physician Address: Address: [address] Care Team Related Persons Name: FRANTZ LIEBERMAN Name: FRANTZ LIEBERMAN Care Team Personnel Name: JIM MICHELE MD Position: P4 Physician - Primary Care Member Role: Primary Care Physician Address: Address: [address] Care Team Related Persons Name: FRANTZ LIEBERMAN Name: FRANTZ LIEBERMAN Care Team Personnel Name: JIM MICHELE MD Position: P4 Physician - Primary Care Member Role: Primary Care Physician Address: Address: [address] [place] [address] Care Team Related Persons Name: FRANTZ LIEBERMAN Name: FRANTZ LIEBERMAN Care Team Personnel Name: JIM MICHELE MD Position: P4 Physician - Primary Care Member Role: Primary Care Physician Address: Address: [address] [place] [address] Care Team Related Persons Name: FRANTZ LIEBERMAN Name: FRANTZ LIEBERMAN FOR RECORDS PERTAINING TO PATIENTS WHO ARE OR HAVE BEEN ENROLLED IN A CHEMICAL DEPENDENCY/SUBSTANCEABUSE PROGRAM, SOME INFORMATION MAY BE OMITTED. This clinical summary was aggregated from multiple sources. Caution should be exercised in using it in the provision of clinical care. This summary normalizes information from multiple sources, and as a consequence, information in this document may materially change the coding, format and clinical context of patient data. In addition, data may be omitted in some cases. CLINICAL DECISIONS SHOULD BE BASED ON THE PRIMARY CLINICAL RECORDS. [facility]. provides no warranty or guarantee of the accuracy or completeness of information in this document.
[2024-11-05 22:54] LABS: Osmolality, Urine 199 mOsm/KG
[2024-11-06 01:45] VITALS: BP 168/81; PULSE 95; RESP 15; TEMP 36.8; O2SAT 100
[2024-11-06 05:09] LABS: Anion Gap 11 (5-15); BUN 17 mg/dL (4-19); BUN/Creat Ratio 8.3 RATIO (10-20); Calcium,Total 8.4 mg/dL (7.6-11.0); Carbon Dioxide 18.8 mmol/L (21.0-32.0); Chloride 96 mmol/L (98-108); Cholesterol 131 mg/dL (<=200); Creatinine, Serum 2.07 mg/dL (0.70-1.20); EST Glomerular Filtration Rate 32 (>60); Glucose 100 mg/dL (70-99); High Density Lipoprotein 63 mg/dL; Low Density Lipoprotein Calc. 55 mg/dL; Sodium Level 125 mmol/L (133-145); Triglycerides 68 mg/dL; Very Low Density Lipoprotein 14 mg/dL (5-40); cholesterol:hdl ratio screen 2.09
[2024-11-06 05:16] LABS: CORTISOL AM 6.33 ug/dL (6.02-18.40)
[2024-11-06] MEDS: Aspirin E.C. 81 MG Tablet PO (05:28)
[2024-11-06] MEDS: Doxazosin 4 MG Tablet PO (05:28)
[2024-11-06] MEDS: Levothyroxine 100 MCG Tablet PO (05:28)
[2024-11-06 05:45] VITALS: BP 181/78; PULSE 89; RESP 16; TEMP 36.6; O2SAT 100
--- NOTE | 2024-11-06 05:55 | EKG12_ITS ---
Test Reason : admit Blood Pressure : */* mmHG Vent. Rate : 81 BPM Atrial Rate : 81 BPM P-R Int : 190 ms QRS Dur : 98 ms QT Int : 362 ms P-R-T Axes : 41 -2 34 degrees QTcB Int : 420 ms Normal sinus rhythm Nonspecific ST abnormality Abnormal ECG No previous ECGs available Confirmed by SHIRA CATHERINE, BENJAMIN ([id number]), television news video editor STEFANY DOAN ([id number]) on 11/06/2024 11:01:20 AM Referred By: Christopher Xie Confirmed By: BENJAMIN SILVA MD
[2024-11-06 06:05] VITALS: BP 181/78; PULSE 89
[2024-11-06] MEDS: hydrALAZINE 20 MG/ML Vial 10 MG IV (06:05)
[2024-11-06] MEDS: 0.9% Saline Lock 10 ML Syringe IV (06:05)
[2024-11-06 08:58] VITALS: BP 134/67; PULSE 89; RESP 16; TEMP 36.6; O2SAT 97
--- NOTE | 2024-11-06 09:10 | PCM.PN.HOSP ---
Reason for Visit Reason for Visit: Diagnoses Chest pain, unspecified (11/05/24) Subjective Subjective No further chest pain. Objective Data Objective Data Vital Signs: Vital Signs Temp Pulse Resp BP Pulse Ox O2 Del Method 36.6 C 89 16 134/67 H 97 Room Air 11/06/24 08:58 11/06/24 08:58 11/06/24 08:58 11/06/24 08:58 11/06/24 08:58 11/06/24 09:00 Oxygen Delivery Method Room Air Weight: 90.6 kg Body Mass Index (BMI) 28.6 Intake & Output: Intake and Output for Last 24 Hours 11/04/24 11/05/24 11/06/24 23:59 23:59 23:59 Intake Total 150 / 150 1000 / 1000 Balance 150 / 150 1000 / 1000 Lab / Micro Data 11/05/24 15:00 11/06/24 04:40 Labs: Laboratory Results - last 24 hr 11/05/24 15:00: WBC 7.3, RBC 3.71 L, Hgb 11.8 L, Hct 34.7 L, MCV 93.5, MCH 31.8, MCHC 34.0, RDW Std Deviation 45.3 H, RDW Coeff of [place]yanne 13.3, Plt Count 224, MPV 9.3, Sodium 124 L, Potassium 4.2, Chloride 93 L, Carbon Dioxide 19.9 L, Anion Gap 12, BUN 18, Creatinine 2.16 H, Estim Creat Clear Calc 31.91 L, Est GFR (MDRD) Non-Af 31 L, BUN/Creatinine Ratio 8.1 L, Glucose 108 H, Serum Osmolality 274 L, Calcium 8.9, TSH 9.530 H 11/05/24 16:15: Troponin T High Sens 95 H* 11/05/24 18:02: Troponin T Hi Sens 2 Hr 97 H* 11/05/24 19:41: Troponin T Hi Sens 4Hr 92 H* 11/05/24 21:55: Urine Color Straw, Urine Clarity Clear, Urine pH 6.0, Ur Specific [place] 1.010, Urine Protein 100 H, Urine Glucose (UA) Normal, Urine Ketones Negative, Urine Occult Blood Negative, Urine Nitrite Negative, Urine Bilirubin Negative, Urine Urobilinogen Normal, Ur Leukocyte Esterase Negative, Urine RBC 0 SEEN, Urine WBC 0-5 SEEN, Ur Squamous Epith Cells 0-5 SEEN, Urine Bacteria 0 SEEN, Urine Mucus 0 SEEN, Urine Osmolality 199, Ur Random Sodium 32 06/24/25 04:40: Sodium 125 L, Potassium 4.0, Chloride 96 L, Carbon Dioxide 18.8 L, Anion Gap 11, BUN 17, Creatinine 2.07 H, Estim Creat Clear Calc 33.30 L, Est GFR (MDRD) Non-Af 32 L, BUN/Creatinine Ratio 8.3 L, Glucose 100 H, Calcium 8.4, Triglycerides 68, Cholesterol 131, LDL Cholesterol, Calc 55, VLDL Cholesterol 14, HDL Cholesterol 63, Cholesterol/HDL Ratio 2.09, Cortisol AM Sample 6.33 Physical Exam Const alert and no apparent distress HEENT head/scalp atraumatic and moist oral mucous membranes Resp normal respiratory effort, no retractions, no use of accessory muscles and clear to auscultation bilaterally Cardio regular rate, regular rhythm, S1 normal heart sound and S2 normal heart sound Assessment & Plan Assessment/Plan (1) Chest pain: PLAN: Atypical. Reproducible. Suspect costochondritis with patient does have risk factors bigger with his family history for coronary artery disease. As well as get a stress test. Patient did receive aspirin at the outside hospital and will continue. Troponins elevated into the 90s, but stable. May be skewed given CKD. (2) Suicidal ideation: PLAN: Had mentioned to nursing about wanting to kill himself. I spoke w Angeline Bhardwaj. Not deemed a threat to self or other. Suicide precautions lifted. Pt appeared to be upset at his situation when he made those comments. (3) Hyponatremia: PLAN: Reviewed through [facility] and sodium has been low previously. Back in September on the , it was noted to be 127. TSH was high but free T4 was normal. 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 And would recommend fluid restricted diet of 1.5 L/day. And follow-up his his sodium on routine basis as outpatient. PLAN: Plan Forgetfulness: Per his . Would be concerned about patient having mild cognitive impairment versus dementia. Recommend geriatric or neurology evaluation as outpatient. VTE prophylaxis: Low risk. Not indicated at this time. Discharge home
[2024-11-06] MEDS: Pantoprazole Sodium 40 MG Tablet PO (12:15)
--- NOTE | 2024-11-06 14:13 | STRESSREP ---
Stress Test Report Pharmacologic myocardial perfusion stress test. 79-year-old man with a history of chest pain Resting EKG demonstrates sinus rhythm with a rate of 86 bpm. Resting blood pressure is 145/68 mmHg. 0.4 mg of regadenoson was infused per usual protocol followed by rapid intravenous saline flush injection. Continuous EKG monitoring was performed. The maximum heart rate was 104 bpm which was 73% of max impacted heart rate the maximum workload was 1 metabolic equivalent. At rest there were no ST or T wave changes noted to suggest ischemia and at peak infusion nonspecific ST changes were noted which did not meet the criteria for ischemia. No clinical angina is noted. The final blood pressure was 119/50 mmHg. Myocardial perfusion protocol. 12 mCi of technetium 99m sestamibi was injected at rest. 0.4 mg of regadenoson was infused per usual protocol. At peak infusion 34.3 mCi of technetium 99m sestamibi was injected stress images were obtained stress and rest images were reconstructed and compared in the short axis vertical long and horizontal long axis. Gated images were also obtained. Perfusion SPECT analysis: Review of the stress images demonstrate normal uptake of tracer noted in all areas of the myocardium. The resting images similar demonstrated normal uptake of tracer noted in all areas of the myocardium. No areas of reversibility are noted to suggest ischemia and no previous infarct is noted. Gated SPECT analysis: The gated ejection fraction is normal. Conclusion: Normal pharmacologic myocardial perfusion stress test. Preserved ejection fraction.
--- NOTE | 2024-11-06 15:00 | CASEMGMT ---
Met with patient and his to complete WALDRON form. WALDRON form and its content were verbally explained and patient's questions were answered to the best of my ability.? Patient voiced understanding. His signed WALDRON form.? Patient provided a copy of signed WALDRON form and original placed in patient's chart.? Patient had no further questions. Edie Fajardo, Discharge Planning Asst
--- NOTE | 2024-11-06 15:17 | PCM.DC.SUM ---
Providers Date of Admission: 11/05/24 Primary Care Physician: Dr. Jim Ochoa MD Reason For Visit: CHEST PAIN Diagnosis Discharge Diagnosis (1) Chest pain: Status: Acute Code(s): R07.9 - Chest pain, unspecified Plan: Atypical. Reproducible. Suspect costochondritis with patient does have risk factors bigger with his family history for coronary artery disease. As well as get a stress test. Patient did receive aspirin at the outside hospital and will continue. Troponins elevated into the 90s, but stable. May be skewed given CKD. (2) Suicidal ideation: Status: Acute Code(s): R45.851 - Suicidal ideations Plan: Had mentioned to nursing about wanting to kill himself. I spoke w Angeline Bhardwaj. Not deemed a threat to self or other. Suicide precautions lifted. Pt appeared to be upset at his situation when he made those comments. (3) Hyponatremia: Status: Acute Code(s): E87.1 - Hypo-osmolality and hyponatremia Plan: Reviewed through [facility] and sodium has been low previously. Back in September on the , it was noted to be 127. TSH was high but free T4 was normal. 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 And would recommend fluid restricted diet of 1.5 L/day. And follow-up his his sodium on routine basis as outpatient. Plan Forgetfulness: Per his . Would be concerned about patient having mild cognitive impairment versus dementia. Recommend geriatric or neurology evaluation as outpatient. VTE prophylaxis: Low risk. Not indicated at this time. Discharge home Medications at Discharge Home Medications albuterol sulfate 90 mcg/actuation aerosol inhaler 2 puff inhalation Q4H PRN PRN wheezing 11/05/24 doxazosin 4 mg tablet 4 mg PO DAILY 11/05/24 dupilumab 300 mg/2 mL subcutaneous pen injector (Dupixent) 300 mg subcut .Q2Week Skin 11/05/24 dutasteride 0.5 mg capsule 0.5 mg PO DAILY 11/05/24 furosemide 20 mg tablet 20 mg PO DAILY 11/05/24 levothyroxine 100 mcg capsule 100 mcg PO DAILY 11/05/24 omeprazole 40 mg capsule,delayed release 40 mg PO DAILY 11/05/24 aspirin 81 mg tablet,delayed release 81 mg PO BREAKFAST #0 tabs 11/06/24 Hospital Course Operations None Procedures None Summary of Care Provided Minutes Spent on Discharge: 35 Hospital Course: Patient presents with chest pain from an outside hospital. Troponins were in the 90s here but patient did have KWABENA but the remained stable. Stress test was performed and was unremarkable. Patient did have low sodium around 124. I want to 125. Their workup that was pretty unremarkable so I suspect he has SIADH. On review of [facility], he has had low sodiums before to the 120s. I feel he likely has SIADH and should be fluid restricted but with close follow-up. Patient was in the hospital stated that he wanted to kill himself. Patient was evaluated by social work and this was deemed more not a threat but just being upset that he is not being able to do the things he would want to do and being in the hospital. There was no imminent threat to himself and suicide precautions were lifted. is expressed concern over his forgetfulness which has been going on for some time. I would be concerned the patient does have dementia and I did recommend that she have him formally evaluated for dementia as outpatient with geriatrics or neurology. expressing concern about him getting into the house but later clarified that she would be comfortable [facility] may incorporate neighbors. Not interested in longterm facility. Patient does get out and about so would not be a candidate for home care. They would be open to outpatient therapy. Weight / BMI Weight Weight: 90.6 kg Body Mass Index (BMI) 28.6 ABG / Lab / Microbiology Data 11/05/24 15:00 11/06/24 04:40 Laboratory: Laboratory Results - last 24 hr 11/05/24 15:00: Sodium 124 L, Potassium 4.2, Chloride 93 L, Carbon Dioxide 19.9 L, Anion Gap 12, BUN 18, Creatinine 2.16 H, Estim Creat Clear Calc 31.91 L, Est GFR (MDRD) Non-Af 31 L, BUN/Creatinine Ratio 8.1 L, Glucose 108 H, Serum Osmolality 274 L, Calcium 8.9, TSH 9.530 H 11/05/24 16:15: Troponin T High Sens 95 H* 11/05/24 18:02: Troponin T Hi Sens 2 Hr 97 H* 11/05/24 19:41: Troponin T Hi Sens 4Hr 92 H* 11/05/24 21:55: Urine Color Straw, Urine Clarity Clear, Urine pH 6.0, Ur Specific [place] 1.010, Urine Protein 100 H, Urine Glucose (UA) Normal, Urine Ketones Negative, Urine Occult Blood Negative, Urine Nitrite Negative, Urine Bilirubin Negative, Urine Urobilinogen Normal, Ur Leukocyte Esterase Negative, Urine RBC 0 SEEN, Urine WBC 0-5 SEEN, Ur Squamous Epith Cells 0-5 SEEN, Urine Bacteria 0 SEEN, Urine Mucus 0 SEEN, Urine Osmolality 199, Ur Random Sodium 32 11/06/24 04:40: Sodium 125 L, Potassium 4.0, Chloride 96 L, Carbon Dioxide 18.8 L, Anion Gap 11, BUN 17, Creatinine 2.07 H, Estim Creat Clear Calc 33.30 L, Est GFR (MDRD) Non-Af 32 L, BUN/Creatinine Ratio 8.3 L, Glucose 100 H, Calcium 8.4, Triglycerides 68, Cholesterol 131, LDL Cholesterol, Calc 55, VLDL Cholesterol 14, HDL Cholesterol 63, Cholesterol/HDL Ratio 2.09, Free T4 1.30, Cortisol AM Sample 6.33 D/C Instructions Discharge Diet: - (1.5 L of fluid per day) DC O2, CPAP, BIPAP Needs Home O2 Discharge instructions: No Meaningful Use Info Meaningful Use Meaningful Use Diagnoses (Choose all that apply): None applicable Ischemic Stroke Statin Dosing Therapy Reference: STATIN DOSE THERAPY REFERENCE: * Patients > 75 years receive moderate or high dose statin therapy. * Patients 75 years or YOUNGER should receive HIGH intensity statin dose unless contraindicated. You will be required to document reason for non-treatment if statin daily dose does not meet guidelines. HIGH DOSE STATIN THERAPY DAILY Atorvastatin > than or = to 40 mg Rosuvastatin > than or = to 20 mg Amlodipine + Atorvastatin > than or = to 2.5/40 mg Ezetimibe + Simvastatin 10/80 mg Simvastatin 80mg Discharge Plan Admission Admit Date/Time: 11/05/24 14:23 Primary Reason for Your Visit: Chest pain Attending Provider: Christopher Xie Primary Care Provider: Jim Ochoa Instructions Additional Instructions / Restrictions: Got chest pain. Stress test was normal. If you do have recurrent chest pains, notify your physician or return to the emergency room. Your sodium is low but upon review of previous records has been low previously. I feel you have a condition known as SIADH. Which is a hormonal problem that can cause a sodium to be low. The treatment is actually restricting the fluid that you taken per day. This is typically 1.5 L (50 ounces or 6-1/2 cups/day). I would like for you to have your labs checked next week to see how your sodium is overall doing. Discharge Orders/Prescriptions Prescriptions: New aspirin 81 mg Tablet,Delayed Release (Dr/Ec) 81 mg PO BREAKFAST Qty: 0 0RF Continued omeprazole 40 mg capsule,delayed release(DR/EC) 40 mg PO DAILY doxazosin 4 mg tablet 4 mg PO DAILY furosemide 20 mg tablet 20 mg PO DAILY albuterol sulfate 90 mcg/actuation HFA aerosol inhaler 2 puff inhalation Q4H PRN PRN (Reason: wheezing) dutasteride 0.5 mg capsule 0.5 mg PO DAILY Dupixent Pen 300 mg/2 mL pen injector 300 mg subcut .Q2Week levothyroxine 100 mcg capsule 100 mcg PO DAILY Other Ambulatory Orders: Physical Therapy Evaluation (Routine) Location: None Selected Ordered By: Dr. Christopher Xie Referrals / Follow Up: Jim Ochoa MD [Primary Care Provider] - Within 2 Weeks Disposition Disposition (needs filled in before D/C Order can be placed): Home, Self Care Charges/Coding Visit Charges Inpatient E&M: 00887 Disch Hosp >30min
--- NOTE | 2024-11-06 16:05 | PHA.DC_ITS ---
Pharmacy [facility] Counseling Pharmacy Service has performed discharge medication reconciliation and counseling for this patient. 1. ASPIRIN 81MG PO BREAKFAST The patient's discharge medication list was reviewed for discrepancies and discrepancies were resolved. The patient was counseled on the following discharge medications and changes in medications for homegoing were reviewed. The Reason for Use, instructions for use, and potential side effects were reviewed for all new medications. The patient's questions regarding all of their medications were answered. The patient was able to verbally demonstrate an understanding of their discharge medications. Medications at Discharge Home Medications albuterol sulfate 90 mcg/actuation aerosol inhaler 2 puff inhalation Q4H PRN PRN wheezing 11/05/24 doxazosin 4 mg tablet 4 mg PO DAILY 11/05/24 dupilumab 300 mg/2 mL subcutaneous pen injector (s[employer]weatherixGenym[employer]) 300 mg subcut .Q2Week Skin 11/05/24 dutasteride 0.5 mg capsule 0.5 mg PO DAILY 11/05/24 furosemide 20 mg tablet 20 mg PO DAILY 11/05/24 levothyroxine 100 mcg capsule 100 mcg PO DAILY 11/05/24 omeprazole 40 mg capsule,delayed release 40 mg PO DAILY 11/05/24 aspirin 81 mg tablet,delayed release 81 mg PO BREAKFAST #0 tabs 11/06/24
--- NOTE | 2024-11-06 16:09 | CASEMGMT ---
Patient has order for discharge. RN CM in to discuss needs at discharge, at bedside. inquired about outpatient therapy, patient not sure if he would like to do therapy at discharge. RN CM updated that script will be provided and they can take to outpatient therapy facility of choice, voiced understanding. had no further questions or concerns. Script received and placed in discharge packet.
[2024-11-06 16:59] VITALS: BP 160/76; PULSE 97; RESP 16; TEMP 36.8; O2SAT 97
== END 2024-11-06 18:10 | disposition home or self-care (01) ==
PROVIDERS: PCP Family Medicine
DX: R07.89 Other chest pain (principal); E87.1 Hypo-osmolality and hyponatremia; R45.851 Suicidal ideations; Z79.899 Other long term (current) drug therapy; Z79.890 Hormone replacement therapy
CPT/HCPCS: 36415; 78452; 80048; 80061; 81001; 82533; 83930; 83935; 84300; 84439; 84443; 84484; 85027; 93005; 93017; 96361; 96374; 96376; 99221; A9500; A4216; G0378; G0379; J2785